=== PATIENT | female | born 1965 | race American Indian/Alaskan Native ===

== ENCOUNTER 2017-07-04 19:04 | Emergency (ER) | payer BC, OTHER ==
[~2017-07-04] VITALS: Ht 157.5 cm; Wt 90.7 kg
[~2017-07-04 19:04] MED LIST: ALBUTEROL2.5 MG/3 M INH; ASPIR 8181 MG PO; AZITHROMYCIN250 MG PO; BACTRIM DS TAB1 EACH PO; CALCIUM + D3 E1 EACH PO; CALCIUM 600 +1 EAC6 PO; CEFPODOXIME PR200 MG PO; CYCLOBENZAPRINE10 MG PO; DULERA 200 MCG/13 GM INH; FLAGYL500 MG PO; HYDROCODON-ACE1 EA14 PO; IBUPROFEN600 MG PO; IPRAT-ALBUT 0.5-3 ML INH; LANTUS SOL100 UNIT/1 SUB-Q; LANTUS100 UNITS/ SUB-Q; LEVAQUIN 7750 MG/150 PO; LEVAQUIN500 MG PO; LISINOPRIL40 MG PO; LORATADINE10 MG PO; MAG-OXIDE400 MG PO; MAGIC MOUTHWASH PO; METFORMIN HCL500 MG PO; METHOCARBAMOL750 MG PO; METOPROLOL SUCC50 MG PO; NOVOLOG FL100 UNIT/1 SUB-Q; PREDNISONE10 MG PO; PREDNISONE20 MG PO; PROVENTIL HFA6.7 GM INH; RANITIDINE HCL150 MG PO; SIMVASTATIN10 MG PO; SINGULAIR10 MG PO; SULFAMETHOXAZO1 EAC1 PO; TAB-A-VITE-MIN1 EACH PO; VITAMIN D2000 UNI1 PO; XANAX0.25 MG PO; ZITHROMAX250 MG PO
[2017-07-04] MEDS ORDERED: LIPITOR10 MG PO (19:16)
[2017-07-04] MEDS ORDERED: METFORMIN HCL1000 M1 PO (19:18)
[2017-07-05] MEDS ORDERED: ONDANSETRON HCL4 MG PO (10:42)
== END 2017-07-04 22:56 | disposition home or self-care (01) ==
LOC: ED 19:04
DX: K52.9 Noninfective gastroenteritis and colitis, unspecified (principal); I10 Essential (primary) hypertension; E11.9 Type 2 diabetes mellitus without complications; E78.00 Pure hypercholesterolemia, unspecified; K21.9 Gastro-esophageal reflux disease without esophagitis; J45.909 Unspecified asthma, uncomplicated; Z87.891 Personal history of nicotine dependence; Z88.2 Allergy status to sulfonamides; Z88.8 Allergy status to other drugs, medicaments and biological substances; Z79.899 Other long term (current) drug therapy; Z79.4 Long term (current) use of insulin; Z79.82 Long term (current) use of aspirin; Z79.84 Long term (current) use of oral hypoglycemic drugs
CPT/HCPCS: 80053; 81001; 83690; 85025; 96361; 96374; 96376; 99284; J2405; J7030

== ENCOUNTER 2017-07-05 10:18 | Emergency (ER) | payer BC, OTHER ==
[~2017-07-05] VITALS: Ht 157.5 cm; Wt 90.7 kg
[~2017-07-05 10:18] MED LIST changes: +LIPITOR10 MG PO; +METFORMIN HCL1000 M1 PO
[2017-07-05] MEDS ORDERED: ONDANSETRON HCL4 MG PO (10:42)
== END 2017-07-05 14:55 | disposition home or self-care (01) ==
LOC: ED 10:18
DX: K52.9 Noninfective gastroenteritis and colitis, unspecified (principal); E11.9 Type 2 diabetes mellitus without complications; I10 Essential (primary) hypertension; E78.00 Pure hypercholesterolemia, unspecified; K21.9 Gastro-esophageal reflux disease without esophagitis; J45.909 Unspecified asthma, uncomplicated; Z87.891 Personal history of nicotine dependence; Z88.2 Allergy status to sulfonamides; Z88.8 Allergy status to other drugs, medicaments and biological substances; Z79.899 Other long term (current) drug therapy; Z79.4 Long term (current) use of insulin; Z79.82 Long term (current) use of aspirin
CPT/HCPCS: 74020; 80053; 81001; 83690; 85025; 87088; 96360; 99283; J7030

== ENCOUNTER → 2017-10-10 | Emergency (ER) | payer BC, OTHER ==
[~2017-10-10] MED LIST changes: +CORRECTOL5 MG PO; +GAVILAX17 GM; +GOLYTELY SOLU4000 ML PO; +ONDANSETRON HCL4 MG PO; +PERFOROMIS20 MCG/2 M; +ROBAXIN-750750 MG
== END ==
LOC: ED 20:55
DX: Z53.21 Procedure and treatment not carried out due to patient leaving prior to being seen by health care provider (principal)

== ENCOUNTER 2017-10-15 16:30 | Emergency (ER) | payer BC, OTHER ==
[~2017-10-15] VITALS: Ht 157.5 cm; Wt 90.7 kg
[~2017-10-15 16:30] MED LIST changes: -CORRECTOL5 MG PO; -GAVILAX17 GM; -GOLYTELY SOLU4000 ML PO; -PERFOROMIS20 MCG/2 M; -ROBAXIN-750750 MG
[2017-10-15] MEDS ORDERED: CORRECTOL5 MG PO (17:24)
[2017-10-15] MEDS ORDERED: PERFOROMIS20 MCG/2 M (17:30)
[2017-10-15] MEDS ORDERED: ROBAXIN-750750 MG (17:32)
[2017-10-15] MEDS ORDERED: GAVILAX17 GM (17:37)
[2017-10-15] MEDS ORDERED: GOLYTELY SOLU4000 ML PO (18:01)
== END 2017-10-15 18:34 | disposition home or self-care (01) ==
LOC: ED 16:30
DX: K59.00 Constipation, unspecified (principal); E11.9 Type 2 diabetes mellitus without complications; E78.00 Pure hypercholesterolemia, unspecified; K21.9 Gastro-esophageal reflux disease without esophagitis; I10 Essential (primary) hypertension; J45.909 Unspecified asthma, uncomplicated; Z87.891 Personal history of nicotine dependence; Z88.1 Allergy status to other antibiotic agents; Z88.8 Allergy status to other drugs, medicaments and biological substances; Z79.82 Long term (current) use of aspirin; Z79.4 Long term (current) use of insulin; Z79.899 Other long term (current) drug therapy
CPT/HCPCS: 74022; 80053; 81001; 85025; 96361; 96374; 96375; 99284; J1885; J2405; J7030

== ENCOUNTER 2018-05-31 12:05 | Emergency (ER) | payer BC, OTHER ==
[~2018-05-31] VITALS: Ht 157.5 cm; Wt 90.7 kg
[~2018-05-31 12:05] MED LIST changes: +CORRECTOL5 MG PO; +GAVILAX17 GM; +GOLYTELY SOLU4000 ML PO; +PERFOROMIS20 MCG/2 M; +ROBAXIN-750750 MG
== END 2018-05-31 12:22 | disposition home or self-care (01) ==
LOC: ED 12:05
DX: R23.8 Other skin changes (principal)

== ENCOUNTER 2019-01-21 21:26 | Emergency (ER) | payer BC, OTHER ==
[~2019-01-21] VITALS: Ht 157.5 cm; Wt 90.7 kg
--- OUTSIDE RECORDS SUMMARY | ~2019-01-21 | XMS | Encounter Summary ---
Demographics + + + | Address | [address] | | | [place] [address] | + + + | Home Phone | | + + + | Preferred Language | Unknown | + + + | Marital Status | Unknown | + + + | Methodist Affiliation | Unknown | + + + | Race | Unknown | + + + | Ethnic Group | Unknown | + + + Author + + + | Author | [facility] | + + + | Organization | [facility] | + + + | Address | Unknown | + + + | Phone | Unavailable | + + + Care Team Providers + +------+ + | Care Telephoner Name | Role | Phone | + +------+ + | Kayla Núñez PA-C | PCP | | + +------+ + Reason for Visit + + + | Reason | Comments | + + + | Question | paperwork | + + + Encounter Details +--------+ + + + + | Date | Type | Department | Care Team | Description | +--------+ + + + + | 12/25/ | Telephone | [facility] | Dimitrios Paniagua MD [address] | Question (paperwork) | | 2019 | | [facility] | [address] [place] | | | | | [address] | [place] [address] | | | | | [place] | [phone] | | | | | [address] | | | | | | [phone] | | | +--------+ + + + [...] on file | | + + + as of this encounter Plan of Treatment +--------+---------+ + + + | Date | Type | Specialty | Care Team | Description | +--------+---------+ + + + | 01/30/ | Office | Neurology | Dimitrios Paniagua MD [address] | | | 2019 | Visit | | [place] | | | | | | [place] [address] | | | | | | [phone] | | | | | | | | +--------+---------+ + + + as of this encounter Visit Diagnoses Not on filein this encounter"
--- OUTSIDE RECORDS SUMMARY | ~2019-01-21 | XMS | Encounter Summary ---
Demographics + + + | Address | [address] | | | [place] [address] | + + + | Home Phone | | + + + | Preferred Language | Unknown | + + + | Marital Status | Unknown | + + + | Mormonism Affiliation | Unknown | + + + | Race | Unknown | + + + | Ethnic Group | Unknown | + + + Author + + + | Author | [facility] | + + + | Organization | [facility] | + + + | Address | Unknown | + + + | Phone | Unavailable | + + + Care Team Providers + +------+ + | Care Amf Mechanic Name | Role | Phone | + [...] | | | [address] | [place] [address] | | | | | [place] | [phone] | | | | | [address] | | | | | | [phone] | | | +--------+ + + + [...] | | | | | | [place] [address] | | | | | | [phone] | | | | | | | | +--------+---------+ + + + as of this encounter Visit Diagnoses Not on filein this encounter"
--- OUTSIDE RECORDS SUMMARY | ~2019-01-21 | XMS | Clinical Summary ---
Demographics + + + | Address | [address] | | | [place] [address] | + + + | Home Phone | | + + + | Preferred Language | Unknown | + + + | Marital Status | Unknown | + + + | Taoist Affiliation | Unknown | + + + | Race | Unknown | + + + | Ethnic Group | Unknown | + + + Author + + + | Author | [email or web address] | + + + | Organization | [facility] | + + + | Address | Unknown | + + + | Phone | Unavailable | + + + Care Team Providers + +------+ + | Care Regeneration Operator Name | Role | Phone | + +------+ + | Kayla Núñez PA-C | PP | | + +------+ + Allergies Not on File Current Medications Not on file Active Problems Not on file Encounters +--------+ + + + + | Date | Type | Specialty | Care Team | Description | +--------+ + + + + | 12/25/ | Telephone | | Dimitrios Paniagua MD | Question (paperwork) | | 2018 | | | | | +--------+ + + + + from Last 3 Months Social History + +-------+ +--------+------+ | Tobacco [...] on file | | + + + Plan of Treatment +--------+---------+ + + + | Date | Type | Specialty | Care Team | Description | +--------+---------+ + + + | 01/30/ | Office | | Dimitrios Paniagua MD [address] | | | 2019 | Visit | | [place], | | | | | | [place] [address] | | | | | | [phone] | | | | | | | | +--------+---------+ + + + + + + + + | Health [...] Vaccine: Influenza | | | | | (Season Ended) | 9 | | | + + [...] +------+-------+ + | PREMERA | PREMER | [id number] | | | [address] [address] | | | A BLUE | | | | [place] | | | [place] | | | | [phone] | | | FED | | | [...] | Self | [birth year] Home: | [address] | | | al/Fam | | 1965 | [phone] | [place] [address] | | | albaro | | | [phone] | | + +--------+ +--------+ + +"
--- OUTSIDE RECORDS SUMMARY | ~2019-01-21 | XMS | Clinical Summary ---
Demographics + + + | Address | [address] | | | [place] [address] | + + + | Home Phone | | + + + | Preferred Language | Unknown | + + + | Marital Status | | + + + | Judaism Affiliation | 1041 | + + + | Race | Unknown | + + + | Ethnic Group | Unknown | + + + Author + + + | Author | [facility] | | | [facility] | + + + | Organization | [facility] | | | and [facility] | + + + | Address | Unknown | + + + | Phone | Unavailable | + + + Support + + +---------+ + | Name | Relationship | Address | Phone | + + +---------+ + | Shiela Chavez | KARMEN | [place] | | | | | NA, | | + + +---------+ + | Manny Martinez | KARMEN | N | | | | | N, | | + + +---------+ + Care Team Providers + +------+ + | Care Cracking And Fanning Machine Operator Name | Role | Phone | + +------+ + | Kayla Núñez PA-C | PP | | + +------+ + Allergies + + + + + + | Active Allergy | Reactions | Severity | Noted | Comments | | | | | Date | | + + + + + + | Amlodipine | Other (See Comments) | | 11/11/19 | Reaction: Unknown | | | | | 18 | | + + + + + + | Cephalexin | Other (See Comments) | | 11/11/19 | Reaction: Unknown | | | | | 18 | | + + + + + + | Cyclobenzaprine | Other (See Comments) | | 11/11/19 | Reaction: Unknown | | | | | 18 | | + + + + + + | Ferrous Gluconate | Other (See Comments) | | 11/11/19 | Reaction: Unknown | | | | | 18 | | + + + + + + | Hydrochlorothiazide | Other (See Comments) | | 11/11/19 | Reaction: Unknown | | | | | 18 | | + + + + + + | Omeprazole | | | 02/18/20 | | | | | | 12 | | + + + + + + | Sulfamethoxazole-Tri | Other (See Comments) | | 05/04/20 | Reaction: Uknown | | [...] | 09/1 | | Activ | | succinate | Daily. | | | 4/20 | | e | | (TOPROL-XL) 50 mg 24 | | | | 12 | | | | hr tablet | | | | | | | + + + +---------+------+------+-------+ | ranitidine | Take 150 mg by mouth | | 0 | 09/1 | | Activ | | (ZANTAC) 150 mg | 2 times daily. | | | 01/17 | | e | | tablet | | | | 12 | | | + + + +---------+------+------+-------+ | magnesium oxide | Take 400 mg by mouth | | 0 | | | Activ | | (MAG-OX) 400 mg | Daily. [...] | | + + + +---------+------+------+-------+ | clindamycin | Take 300 mg by mouth | | 0 | | | Activ | | (CLEOCIN) 300 MG | 3 times daily. | | | | | [...] | | + + + +---------+------+------+-------+ | calcium-vitamin D | Take 1 tablet by | | 0 | | | Activ | | (OSCAL) 500 mg-200 | mouth 2 times daily. | | | | | e | | units per tablet | | [...] | | + + + +---------+------+------+-------+ | glipiZIDE | Take 10 mg by mouth | | 0 | | | Activ | | (GLUCOTROL) 10 MG | every morning | | | | | e | | tablet | (before breakfast). | | | | | | + + + +---------+------+------+-------+ Active Problems + + + | Problem | Noted Date | + + + | Gastroesophageal reflux disease [...] | 7 | + + + + Family History + +------+ + + | [...] | | + + +---------+ + | No [...] + | Blood Pressure | 130/74 | 12/09/20171516 PDT | + + + + | Pulse | 78 | 12/09/20171516 PDT | + + + + | Temperature | 36.8 C (98.3 F) | 12/09/20171516 PDT | + + + + | Respiratory Rate | 12 | 12/09/20171516 PDT | + + + + | Oxygen Saturation | 98% | 12/09/20171516 PDT | + + + + | Inhaled Oxygen | - | - | | Concentration | | | + + + + | Weight | 98.1 kg (216 lb 4.3 | 12/09/20171516 PDT | | | oz) | | + + + + | Height | 157.5 cm (5' 2") | 12/09/20171516 PDT | + + + + | Body Mass Index | 39.56 | 12/09/20171516 PDT | + + + + Plan [...] | | | | Pneumococcal 19-64 | 4 | | | | (PPSV23 only) Medium | | | | | Risk (1 of 1 - | | | | | PPSV23) | | | | + + + + + | Cervical Cancer | | | | | Screening (Pap) | 5 | | | + + + + + | Breast Cancer | | | | | Screening (Ages | 5 | | | | 50-74) | | | | + + + [...] + + | Colorectal Cancer | | 09/30/2014 | | | Screening | 5 | | | | (Colonoscopy) | | | | + + + + + Results Not on filefrom Last 3 Months Insurance + +--------+ +--------+-------+---------+--------+ | Payer | Benefi | Subscriber | Effect | Phone | Address | Type | | | t Plan | ID | joselyn | | | | | | / | | Dates | | | | | | Group | | | | | | + +--------+ +--------+-------+---------+--------+ | BCBS | BCBS | [id number] | 01/30/20 | | | PPO | | | FEDER[place] | | 16-Pre | | | | | | L FEP | | sent | | | | + +--------+ +--------+-------+---------+--------+ | BCBS | BCBS | [id number] | 01/30/20 | | | PPO | | | FEDERA | | 16-Pre | | | | | | L FEP | | sent | | | | + +--------+ +--------+-------+---------+--------+ | [facility] | IHS | [id number] | 10/31/19 | | | Indrudyn | | SERVICE | YELLOW | | [...] Person | Self | [birth year] | [phone] | | | al/Fam | | 1965 | [phone] | [place] [address] | | | [place]o | | | 0 (Home) | | | | | | | [phone] | | | | | | | 0 (Work) | | + +--------+ +--------+ + + | Inocencia Chavez | Person | Self | [birth year] | [phone] | | | al/Po | | 1965 | [phone] | [place] [address] | | | [place] | | | 0 (Home) | | + +--------+ +--------+ + + Advance Directives Patient has advance care planning documents, and code status on file. For more information, please contact:[facility] and [place] [address] + + + + + | Code Status | Date | Date | Comments | | | Activated | Inactivated | | + + + + + | Full Code | 05/04/2017 | 05/05/2017 | | | | 21:03 | 17:04 | | + + + + +
--- OUTSIDE RECORDS SUMMARY | ~2019-01-21 | XMS | Clinical Summary ---
Demographics + + + | Address | [address] | | | [place] [address] | + + + | Home Phone [...] Team Providers + +------+ + | Care Rug Cleaning Supervisor Name | Role | Phone | [...] +--------+ +--------+-------+---------+--------+ | BCBS | BCBS | [id number] | 01/30/20 | | | PPO | | | [place] | | 16-Pre | | | | | | L FEP | | sent | | | | + +--------+ +--------+-------+---------+--------+ | BCBS | BCBS | [id number] | 01/30/20 | | | PPO | | | FEDERA | | 16-Pre | | | | | | L FEP | | sent | | | | + +--------+ +--------+-------+---------+--------+ | [facility] | IHS | [id number] | 10/31/19 | | | Indrudyn | [...] Person | Self | [birth year] | [id number] | | | al/Fam | | 1965 | [phone] | [place] [address] | | | [place]baro | | | 0 (Home) | | | | | | | [phone] | | | | | | | 0 (Work) | | + +--------+ +--------+ + + | Inocencia Chavez | Person | Self | [birth year] | | [id number] | | | al/Po | | 1965 | [phone] | [place] [address] | | | [place]o | | | 0 (Home) | | + +--------+ +--------+ + + Advance Directives Patient has advance care planning documents, and code status on file. For more information, please contact:[facility] and [place] [address] + + + + + | Code Status | Date | Date | Comments | | | Activated | Inactivated | | + + + + + | Full Code | 05/04/2017 | 05/05/2017 | | | | 21:03 | 17:04 | | + + + + +
--- OUTSIDE RECORDS SUMMARY | ~2019-01-21 | XMS | Clinical Summary ---
Demographics + + + | Address | [address] | | | [place] [address] | + + + | Home Phone | | + + + | Preferred Language | Unknown | + + + | Marital Status | Unknown | + + + | Evangelical Affiliation | Unknown | + + + | Race | Unknown | + + + | Ethnic Group | Unknown | + + + Author + + + | Author | [facility] | + + + | Organization | [facility] | + + + | Address | Unknown | + + + | Phone | Unavailable | + + + Care Team Providers + +------+ + | Care Cementer Name | Role | Phone | + [...] | | | | | | [place] [address] | | | | | | [phone] | | | | | | | [...] +------+-------+ + | PREMERA | PREMER | [id number] | | | [address] [address] | | | A BLUE | | | | [place] | | | [place] | | | | [address] | | | FED | | | [...] | Self | [birth year] | Home: | [address] | | | al/Fam | | 1965 | [phone] | [place] [address] | | | [place]o | | | [address] | | + +--------+ +--------+ + +"
[2019-01-21] MEDS ORDERED: PROTONIX40 MG PO (21:39)
[2019-01-21] MEDS ORDERED: ONGLYZA5 MG PO (21:40)
== END 2019-01-21 22:50 | disposition left against medical advice (07) ==
LOC: ED 21:26
DX: Z53.21 Procedure and treatment not carried out due to patient leaving prior to being seen by health care provider (principal)
CPT/HCPCS: 80053; 81001; 85025; G0480

== ENCOUNTER 2019-09-09 13:42 | Inpatient (IN) | payer BC, OTHER ==
[~2019-09-09] VITALS: Ht 157.5 cm; Wt 97.5 kg
--- OUTSIDE RECORDS SUMMARY | ~2019-09-09 | XMS | Encounter Summary ---
Demographics + + + | Address | [address] | | | [place] [address] | + + + | Home Phone | | + + + | Preferred Language | Unknown | + + + | Marital Status | | + + + | Baptism Affiliation | [id number] | + + + | Race | Unknown | + + + | Ethnic Group | Unknown | + + + Author + + + | Author | [facility] | | | and [place] | + + + | Organization | [facility] | | | and [place] | + + + | Address | Unknown | + + + | Phone | Unavailable | + + + Support + + +---------+ + | Name | Relationship | Address | Phone | + + +---------+ + | Shiela Chavez | KARMEN | NA | | | | | NA, | | + + +---------+ + | Manny Martinez | ECON | N | | | | | N, | | + + +---------+ + Care Team Providers + +------+ + | [employer] Counter Assistant Name | Role | Phone | + +------+ + | Kayla Núñez PA-C | PCP | | + +------+ + Reason for Visit + + + | Reason | Comments | + + + | New Patient | | + + + | Abdominal Pain | | + + + | Constipation | | + + + | Diarrhea | | + + + | Bloated | | + + + Evaluate & Treat (Routine) +--------+--------+ + + + + | Status | Reason | Specialty | Diagnoses / | Referred By | Referred To | | | | | Procedures | Contact | Contact | +--------+--------+ + + + + | Closed | | Gastroenterol | Diagnoses | [place], [facility] | | | | ogy | Generalized | Kayla Enciso, | Gastroenterol | | | | | abdominal | [place]-C [id number] | ogy [address] | | | | | pain | | [address] | | | | | Bloating | [address] | [address] [place] | | | | | [address] | [address] | [place], [place] | | | | | constipation | [place], | [address] | | | | | and | [place] [address] | Phone: | | | | | diarrhea | Phone: | [phone] | | | | | Procedures | [phone] | Fax: | | | | | Office Visit | Fax: | [phone] | | | | | | [phone] | | +--------+--------+ + + + + Encounter Details +--------+---------+ + + + | Date | Type | Department | Care Team | Description | +--------+---------+ + + + | 11/12/ | Office | [facility] | Cornelio Edmond | DIABETES MELLITUS, | | 2017 | Visit | GASTROENTEROLOGY | MD [place] [address] | WITH PERIPHERAL | | | | [address] | [address] [place] | NEUROPATHY (Primary | | | | [address] [place], [place] | [place] [address] | Dx); Chronic | | | | [address] | [phone] | idiopathic | | | | [phone] | | constipation; | | | | | | Gastroesophageal | | | | | | reflux disease | | | | | | without esophagitis; | | | | | | Class 2 obesity due | | | | | | to excess calories | | | | | | with body mass index | | | | | | (BMI) of 39.0 to | | | | | | 39.9 in adult, | | | | | | unspecified whether | | | | | | serious comorbidity | | | | | | present | +--------+---------+ + + + Social History + +-------+ +--------+------+ | Tobacco Use | Types | Packs/Day | Years | Date | | | | | Used | | + +-------+ +--------+------+ | Never Smoker | | | | | + +-------+ +--------+------+ + +---+---+---+ | Smokeless Tobacco: | | | | | Never Used | | | | + +---+---+---+ + + +---------+ + | Alcohol Use | Drinks/Week | oz/Week | Comments | + + +---------+ + | No | | | | + + +---------+ + + + + | Sex Assigned at | Date Recorded | | | | + + + | Not on file | | + + + + + + + | Job Start Date | Occupation | Industry | + + + + | Not on file | Not on file | Not on file | + + + + + + + + | Travel History | Travel Start | Travel End | + + + + + + | No recent travel history available. | + + documented as of this encounter Last Filed Vital Signs + + + + + | Vital Sign | Reading | Time Taken | Comments | + + + + + | Blood Pressure | 142/70 | 11/12/2017 8:04 AM | | | | | PST | | + + + + + | Pulse | 64 | 11/12/2017 8:04 AM | | | | | PST | | + + + + + | Temperature | - | - | | + + + + + | Respiratory Rate | 16 | 11/12/2017 8:04 AM | | | | | PST | | + + + + + | Oxygen Saturation | - | - | | + + + + + | Inhaled Oxygen | - | - | | | Concentration | | | | + + + + + | Weight | 97.2 kg (214 lb 4.6 | 11/12/2017 8:04 AM | | | | oz) | PST | | + + + + + | Height | 157.5 cm (5' 2") | 11/12/2017 8:04 AM | | | | | PST | | + + + + + | Body Mass Index | 39.19 | 11/12/2017 8:04 AM | | | | | PST | | + + + + + documented in this encounter Functional Status + + + + | Functional Status | Response | Date of Assessment | + + + + | Are you deaf or do you have serious | Yes | 05/04/2017 | | difficulty hearing? | | | + + + + | Are you blind or do you have serious | No | 05/04/2017 | | difficulty seeing, even when wearing | | | | glasses? | | | + + + + | Do you have serious difficulty walking or | No | 05/04/2017 | | climbing stairs? (5 years old or older) | | | + + + + | Do you have difficulty dressing or bathing? | No | 05/04/2017 | | (5 years old or older) | | | + + + + | Because of a physical, mental, or emotional | No | 05/04/2017 | | condition, do you have difficulty doing | | | | errands alone such as visiting a doctor's | | | | office or shopping? [15 years old or | | | | older)] | | | + + + + + + + + | Cognitive Status | Response | Date of Assessment | + + + + | Because of a physical, mental, or emotional | No | 05/04/2017 | | condition, do you have serious difficulty | | | | concentrating, remembering, or making | | | | decisions? (5 years old or older) | | | + + + + documented as of this encounter Patient Instructions Patient Instructions Cornelio Edmond MD - 11/12/2017 8:45 AM PST1. Start prilosec (om eprazole) 20mg twice a day (before breakfast and dinner), and stop ranitidine (zantac). The Prilosec doesn't kick in for 1 week, so you overlap with the ranitidine for the first week. 2. You could potentially reduce the prilosec dose to 20mg once a day before breakfast after one month if your heartburn is well controlled. 3. Increase your miralax to two scoops in the morning 4. Make sure your thyroid has been checked (TSH) 5. Follow up with me in 1 month to check on your symptoms. 6. Try holding the metformin for 2 weeks to see how your symptoms do. Please touch base wit h your primary to make sure they are ok with this. Treating Constipation Constipation is a common and often uncomfortable problem. Constipation means you have bowel movementsfewer than 3 times per week,or strain to pass hard, dry stool. It can last a s hort time. Or it can be a problem that never seems to go away. The good news is that it can often be treated and controlled. Eat more fiber One of the best ways to help treat constipation is to increase your fiber intake. You can d o this either through diet or by using fiber supplements. Fiber (in whole grains, fruits, an d vegetables) adds bulk and absorbs water to soften the stool. This helps the stool pass thr ough the colon more easily. When you increase your fiber intake, do it slowly to avoid side effects such as bloating. Also increase the amount of water that you drink. Eating more of t he following foods can add fiber to your diet. High-fiber cereals Whole grains, bran, and brown rice Vegetables such as carrots, broccoli, and greens Fresh fruits (especially apples, pears, and dried fruits like raisins and apricots) Nuts and legumes (especially beans such as lentils, kidney beans, and ya beans) Get physically active Exercise helps improve the working of your colon which helps ease constipation. Try to get some physicalactivity every day. If you haven t been active for a while, talk to [facility] providerbefore starting again. Laxatives Your healthcare provider may suggest an [id number]-obictfr product to help ease your constipa tion. He or she may suggest the use of bulk-forming agents or laxatives. The use of laxative s, if used as directed, is common and safe. Follow directions carefully when using them. See your healthcare provider for new-onset constipation, or long-term constipation,to rule ou t other causes such as medicines or thyroid disease. Date Last Reviewed: 03/30/201619999276-1519 [employer] [place] [address]. All righ ts reserved. This information is not intended as a substitute for professional medical care. Always follow your healthcare professional's instructions. documented in this encounter Progress Notes Cornelio Edmond MD - 11/12/2017 8:00 AM PST Outpatient Gastroenterology Consult Note Date of Office Visit: 11/12/17 Referring Provider: Kayla Núñez PA-C [id number] [place] [address] Providing Physician: Cornelio Edmond MD. Chief Complaint: New Patient; Abdominal Pain; Constipation; Diarrhea; and Bloated History of Present Illness Inocencia Chavez is a 52 y.o. female with type II diabetes, hyperlipidemia, hypertension, a nd asthma, who is referred for evaluation of a change in bowel habits and abdominal pain. S he also has a history of C. diff infection in 2014. Since that infection she has had altern ating diarrhea and constipation. She had a CT in 09/17/2015 which revealed only diverticulosis. She was seen by her provider Kayla Mina on October 30 of the above symptoms, who orde red a C. diff, stool culture, Giardia, but the patient never submitted this. Her main complaint today is constipation. She says that in September this developed. She had a day when she got "stuck on the toilet at work". She went to the ER but was able to have a BM at the ER bathroom and went home. She had an X-ray the next day, which showed a large sto ol burden. She was given 2L of Golytely which "flushed me out". She says that she occasionally cannot sense that she has stool in her rectum. This occurs w hen the stool is both formed and liquid. She will sit on the toilet to urinate, and will als o have a BM to her surprise. She has had 3 c-sections, but has never been told that she has pelvic organ prolapse. Her weight has been increasing. She had E.coli in 2009. She says it took her 1 year to recover from this. She struggled wit h incontinence after that. She has a new years resolution to exercise more and loose weight, but her constipation and abdominal bloating are prohibitive. Lately she endorses a loss of appetite due to her bloating. She attributes the bloating to her constipation. Presently she is taking 1 cap full of miralax per day. She is going 2-3 days between bowel movements. Her stools are soft presently. She has a constant ache in her belly like she is going to have diarrhea, but she doesn't foss ve diarrhea. She has been on metformin since 2009. No FH of CRC, and she denies any rectal bleeding She also complains of heartburn, for which she takes ranitidine 150mg BID. She has daily he artburn symptoms while on this medication. Endoscopic History She had a colonoscopy on 04/10/2010 for evaluation of right-sided colitis after being hospit alized with an abnormal CT showing thickening of the right colon wall. A colonoscopy was pe rformed by [facility]. The colon appeared normal other than left-sided diverticulosis. Review of Systems ROS A 12 point review of systems was conducted with the patient. Pertinent positives and negati ves listed per HPI Problem List Patient Active Problem List Diagnosis LUMBAR RADICULOPATHY SPINAL STENOSIS, LUMBAR OBESITY HERNIATED LUMBAR DISC DIABETES MELLITUS, WITH PERIPHERAL NEUROPATHY SCIATICA, LEFT DEGENERATIVE DISC DISEASE, LUMBAR SPINE THORACIC/LUMBOSACRAL NEURITIS/RADICULITIS UNSPEC Gastroesophageal reflux disease without esophagitis Chronic idiopathic constipation Past Medical History Past Medical History: Diagnosis Date Abdominal pain Asthma Clostridium difficile infection 2014 Diabetes mellitus (HCC) Diverticulosis Hyperlipidemia Hypertension Past Surgical History Past Surgical History: Procedure Laterality Date SECTION x3 COLONOSCOPY 2015 GALLBLADDER SURGERY Family History No family history on file. Social History Social History Social History Marital status: Spouse name: N/A Number of children: N/A Years of education: N/A Social History Main Topics Smoking status: Never Smoker Smokeless tobacco: Never Used Alcohol use No Drug use: No Sexual activity: Yes Partners: Male control/ protection: Post-menopausal Other Topics Concern None Social History Narrative None Allergies Allergies Allergen Reactions Amlodipine Other (See Comments) Reaction: Unknown Cephalexin Other (See Comments) Reaction: Unknown Cyclobenzaprine Other (See Comments) Reaction: Unknown Ferrous Gluconate Other (See Comments) Reaction: Unknown Hydrochlorothiazide Other (See Comments) Reaction: Unknown Omeprazole Not Noted Sulfamethoxazole-Trimethoprim Other (See Comments) Reaction: Uknown Intolerance No active intolerances/contraindications Medications Current Outpatient Prescriptions on File Prior to Visit Medication Sig Dispense Refill Albuterol Sulfate (PROAIR HFA IN) AERS-inhale 2 puffs by mouth four times a day as need ed ALPRAZolam (XANAX) 0.25 mg tablet Take 0.25 mg by mouth as needed for Anxiety. aspirin (ASPIRIN EC LO-DOSE) 81 MG EC tablet Take 81 mg by mouth Daily. atorvaSTATin (LIPITOR) 10 mg tablet Take 10 mg by mouth nightly. calcium-vitamin D (OSCAL) 500 mg-200 units per tablet Take 1 tablet by mouth 2 times da albaro. cholecalciferol (VITAMIN D-3) 2000 units TABS Take 2,000 Units by mouth Daily. clindamycin (CLEOCIN) 300 MG capsule Take 300 mg by mouth 3 times daily. ergocalciferol (VITAMIN D-2) 50,000 units capsule Take 2,000 Units by mouth Daily. Insulin Aspart (NOVOLOG PENFILL SC) SOLN-inject 10 units under skin three times a day b efore meals Insulin Glargine (LANTUS SOLOSTAR SC) SOLN-1000/ml insulin pen inject 40 units under sk in at bedtime lisinopril (PRINIVIL,ZESTRIL) 40 MG tablet Take 40 mg by mouth Daily. (Patient taking d ifferently: Take 20 mg by mouth Daily.) loratadine (CLARITIN) 10 mg tablet Take 10 mg by mouth Daily. magnesium oxide (MAG-OX) 400 mg tablet Take 400 mg by mouth Daily. metFORMIN (GLUCOPHAGE) 1000 MG tablet Take 1,000 mg by mouth 2 times daily (with breakf ast & dinner). methocarbamol (ROBAXIN) 750 mg tablet Take 750 mg by mouth 3 times daily as needed for Muscle spasms. metoprolol succinate (TOPROL-XL) 50 mg 24 hr tablet Take 50 mg by mouth Daily. mometasone-formoterol (DULERA) 200-5 mcg/puff inhaler Inhale 2 puffs into the lungs Twi ce Daily. montelukast (SINGULAIR) 10 mg tablet Take 10 mg by mouth nightly. ondansetron (ZOFRAN ODT) 4 mg disintegrating tablet Take 4 mg by mouth every 8 hours as needed for Nausea. ranitidine (ZANTAC) 150 mg tablet Take 150 mg by mouth 2 times daily. No current facility-administered medications on file prior to visit. Physical Exam Vitals:BP 142/70 | Pulse 64 | Resp 16 | Ht 1.575 m (5' 2") | Wt 97.2 kg (214 lb 4.6 oz) | BMI 39.19 kg/m General: This is a well-developed,well-nurished female in no apparent distress, alert and o riented x 3. Head: Reveals normocephalic, atraumatic Eyes: Sclera anicteric, normal conjunctiva Mouth: Oropharynx is clear without obstruction. No oral lesion. Lungs: Clear to auscultation without rales or wheezes. Cardiac: Reveals regular rate and rhythm with normal S1 and S2 and no murmurs, rubs or gall ops. Abdomen: Soft and nontender without masses or organmegaly. No guarding or rebound pain. No rmoactive bowel sounds. Extremities: Without cyanosis, clubbing or edema. Neuro: Awake, alert, oriented x3. Skin: Warm and dry, no erythematous rash. Labs Lab Results Component Value Date WBC 6.7 05/05/2017 HGB 10.7 (L) 05/05/2017 HCT 32.3 (L) 05/05/2017 MCV 88.0 05/05/2017 PLT 274 05/05/2017 Chemistry Component Value Date/Time NA 139 05/05/2017 0625 K 5.3 05/05/2017 0625 CL 112 (H) 05/05/2017 0625 CO2 20 (L) 05/05/2017 0625 GLU 188 (A) 05/05/2017 0710 BUN 18 05/05/2017 0625 ANIONGAP 17 10/29/2017 Component Value Date/Time CALCIUM 8.5 05/05/2017 0625 ALKPHOS 94 05/04/2017 1744 AST 23 05/04/2017 1744 ALT 28 05/04/2017 1744 TOTALPROTEIN 7.4 05/04/2017 1744 ALBUMIN 3.7 05/04/2017 1744 BILITOT 0.3 05/04/2017 1744 OSH labs from October 29, 2017 showed a white blood cell count 9.5, hemoglobin of 11.7, viraj telet count of 361 Creatinine 1.15, sodium 142, potassium 5.0, albumin 3.7, total bilirubin 0.2, alk phos 107, AST 23, ALT 22 Imaging KUB from 10/14/17 was normal Assessment and Plan This is a 52-year-old woman who was referred for evaluation abdominal pain, bloating, and c onstipation. She has a history of C. diff, and E. coli colitis. She is also diabetic and i s on insulin and metformin. Her other complaint is worsening GERD. She previously had a normal colonoscopy in 2009 done in the context of an abnormal CT scan showing colitis. For her bloating and constipation I recommended that she increase her MiraLAX intake. I re commended that she use 2 capfuls of MiraLAX in the morning. I also recommended that she fol low-up with her primary care provider to make sure that her TSH has been checked recently. Metformin can commonly cause GI distress and bloating I recommended that she consider holdin g it for 2 weeks to see how her symptoms do. I instructed her to run this by her primary ca re provider first as she is managing her diabetes. For her GERD she's having symptoms secondary to her GERD while on ranitidine. I recommende d that she start Prilosec 20 mg twice a day and then stop the ranitidine. If she has a favo rable response to Prilosec we could potentially decrease it to the minimal effective dose of 20 mg once a day in the future. I instructed her to follow up in 4 weeks. If she does not have a good response with the Mi raLAX and has ongoing symptoms of bloating and constipation, we may ultimately need to do a colonoscopy. ICD-10-CM ICD-9-CM 1. DIABETES MELLITUS, WITH PERIPHERAL NEUROPATHY E11.49 250.60 2. Chronic idiopathic constipation K59.04 564.00 3. Gastroesophageal reflux disease without esophagitis K21.9 530.81 4. Class 2 obesity due to excess calories with body mass index (BMI) of 39.0 to 39.9 in nafisa lt, unspecified whether serious comorbidity present E66.09 Z68.39 Follow up: Return in about 4 weeks (around 12/10/2017). CC: STEPH CastroC [id number] [place] [address] LEAH [id number] [place] [id number] Portions of this chart may have been created with [employer] voice recognition software. Occasi onal wrong-word or sound-alike substitutions may have occurred due to the inherent parkinson itations of voice recognition software. Please read the chart carefully and recognize, using context, where these substitutions have occurred documented in thi s encounter Plan of Treatment Not on filedocumented as of this encounter Visit Diagnoses + + | Diagnosis | + + | DIABETES MELLITUS, WITH PERIPHERAL NEUROPATHY - Primary Type II or unspecified type | | diabetes mellitus with neurological manifestations, not stated as uncontrolled | + + | Chronic idiopathic constipation Unspecified constipation | + + | Gastroesophageal reflux disease without esophagitis Esophageal reflux | + + | Class 2 obesity due to excess calories with body mass index (BMI) of 39.0 to 39.9 in | | adult, unspecified whether serious comorbidity present | + + documented in this encounter
--- OUTSIDE RECORDS SUMMARY | ~2019-09-09 | XMS | Encounter Summary ---
Demographics + + + | Address | [address] | | | [place] [address] | + + + | Home Phone | | + + + | Preferred Language | Unknown | + + + | Marital Status | | + + + | Episcopal Affiliation | 1041 | + + + | Race | Unknown | + + + | Ethnic Group | Unknown | + + + Author + + + | Author | [facility] | | | and [place] | + + + | Organization | [facility] | | | and [...] Team Providers + +------+ + | Care [employer] Name | Role | Phone | + +------+ + | Kayla Núñez PA-C | PCP | | + +------+ + Reason for Referral Diagnostic/Screening (Routine) +--------+--------+ + + + + | Status | Reason | Specialty | Diagnoses / | Referred By | Referred To | | | | | Procedures | Contact | Contact | +--------+--------+ + + + + | Closed | | Radiology | Diagnoses | [place], | [facility] | | | | | Type II or | Cornelio | Medicine | | | | | unspecified | MD Corbin | [address] | | | | | type | [address] | [place], | | | | | diabetes | [address] [place] | [place] | | | | | mellitus | [place], [place] | [address] | | | | | with | [address] | Phone: | | | | | neurological | Phone: | [phone] | | | | | | [phone] | Fax: | | | | | manifestatio | Fax: | [phone] | | | | | ns, not | [phone] | | | | | | stated as | | | | | | | uncontrolled | | | | | | | ([phone]) | | | | | | | (HCC) Early | | | | | | | satiety | | | | | | | Non-intracta | | | | | | | ble cyclical | | | | | | | vomiting | | | | | | | with nausea | | | | | | | Procedures | | | | | | | NM Gastric | | | | | | | Emptying | | | | | | | CHG GASTRIC | | | | | | | EMPTYING | | | | | | | IMAGING | | | | | | | STUDY | | | +--------+--------+ + + + + Reason for Visit + + + | Reason | Comments | + + + | Follow-up | | + + + | Abdominal Pain | | + + + | Constipation | | + + + Evaluate & Treat (Routine) +--------+--------+ + + + + | Status | Reason | Specialty | Diagnoses / | Referred By | Referred To | | | | | Procedures | Contact | Contact | +--------+--------+ + + + + | Closed | | Gastroenterol | Diagnoses | [place], | Jim[place], | | | | ogy | Abdominal | Kayla Enciso, | Robbin Prieto MD | | | | | pain | PA-C [address] | [address], | | | | | Bloating | | [address] | | | | | Procedures | [address] | [address], | | | | | OFFICE VISIT | WAY | [place] [address] | | | | | | [place] | Phone: | | | | | | [place] [address] | [phone] | | | | | | Phone: | Fax: | | | | | | [phone] | [phone] | | | | | | Fax: | | | | | | | [phone] | | +--------+--------+ + + + + Encounter Details +--------+---------+ + + + | Date | Type | Department | Care Team | Description | +--------+---------+ + + + | 06/03/ | Office | [facility] | Cornelio Edmond | Irritable bowel | | 2019 | Visit | GASTROENTEROLOGY | MD Cor[address] | syndrome with | | | | [address] [place] | [address] [place] | constipation | | | | [address] [place], [place] | [facility] [place] [address] | (Primary Dx); | | | | [address] | [phone] | DIABETES MELLITUS, | | | | [phone] | | WITH PERIPHERAL | | | | | | NEUROPATHY; Early | | | | | | satiety; | | | | | | Non-intractable | | | | | | cyclical vomiting | | | | | | with nausea; | | | | | | Sedative dependence | | | | | | ([facility]) | +--------+---------+ + + + Social History + +-------+ +--------+------+ | Tobacco Use | Types | Packs/Day | Years | Date | | | | | Used | | + +-------+ +--------+------+ | Former Smoker | | | | | + [...] + + + | Blood Pressure | 130/82 | 06/03/2019 3:40 PM | | | | | PDT | | + + + + + | Pulse | 80 | 06/03/2019 3:40 PM | | | | | PDT | | + + + + + | Temperature | 36.8 C (98.3 F) | 06/03/2019 3:40 PM | | | | | PDT | | + + + + + | Respiratory Rate | 16 | 06/03/2019 3:40 PM | | | | | PDT | | + + + + + | Oxygen Saturation | 96% | 06/03/2019 3:40 PM | | | | | PDT | | + + + + + | Inhaled Oxygen | - | - | | | Concentration | | | | + + + + + | Weight | 98 kg (216 lb 0.8 | 06/03/2019 3:40 PM | | | | oz) | PDT | | + + + + + | Height | 157.5 cm (5' 2") | 06/03/2019 3:40 PM | | | | | PDT | | + + + + + | Body Mass Index | 39.52 | 06/03/2019 3:40 PM | | | | | PDT | | + + + + + [...] Instructions Patient Instructions Cornelio Edmond MD - 06/03/2019 3:30 PM PDT1. Start linzess, if you get diarrhea, call and we can reduce the dose 2. Arrange EGD and colonoscopy 3. Gastric emptying scan to check for gastroparesis documented in this encounter Progress Notes Thelma Cancino RN - 06/03/2019 3:30 PM PDTScheduled pt for egd/colon with prop nader tion (DM II; Benzo) on 07/07/[address] Edmond; standard prep reviewed: low fib er diet Sat/Sun before procedure; Mon follow a clear liquid day before with bowel prep at 4p m/8pm or 4pm depending on prep until complete; Medications (half dose DM night before and ho ld day of; hold PPI day of procedure), surg/med hx, and allergies were reviewed; [facility]; info given to pt; completed case request order, notes to MA. ianneing, Cornelio sullivan MD - 06/03/2019 3:30 PM PDTFormatting of this note might be different from the [facility] Progress Note Date of Office Visit: 06/04/19 Primary Care Physician: Kayla Núñez PA-C Chief Complaint Follow-up; Abdominal Pain; and Constipation History of Present Illness Inocencia Chavez is a 53 y.o. female who was referred for evaluation abdominal pain, bloati ng, and constipation. She has a history of C. diff, and E. coli colitis. She is also bassem betic and is on insulin and metformin. Her other complaint is worsening GERD.She previousl y had a normal colonoscopy in 2009 done in the context of an abnormal CT scan showing coliti s. She was last seen on 12/09/17. At that time she had resolution of diarrhea after stopping me tformin, and improvement in GERD after starting omeprazole 20mg daily. Interval history: Pt reports alternating constipation and diarrhea with associated nausea and bloating. TTg IgA 0.7 on 03.11. CMP was normal, ALP was 132 (norm <129). Lately she has had constipation. She has crampy pain. She has been taking miralax 1 scoop a day. Her stools are never hard and lumpy. She often goes up to 3-4 days between BMs. She is taking bentyl for her cramping pain, this is as needed basis, mostly once in the mor estela. She has been using zofran lately as well, as she has had nausea associated with constipatio n. Patient also reports difficulty with swallowing, food feels like it gets hung up in her eso phagus usually solids. No associated weight loss. She also reports a sensation of early satiety and frequent nausea.. Review of Systems A 10 point review of systems was conducted with the patient, pertinent positives and negati ves per HPI. Problem List Patient Active Problem List Diagnosis LUMBAR RADICULOPATHY SPINAL STENOSIS, LUMBAR OBESITY HERNIATED LUMBAR DISC DIABETES MELLITUS, WITH PERIPHERAL NEUROPATHY SCIATICA, LEFT DEGENERATIVE DISC DISEASE, LUMBAR SPINE THORACIC/LUMBOSACRAL NEURITIS/RADICULITIS UNSPEC Gastroesophageal reflux disease without esophagitis Chronic idiopathic constipation Past Medical History Past Medical History: Diagnosis Date Abdominal pain Asthma Clostridium difficile infection 2015 Diabetes mellitus (HCC) Diverticulosis Hyperlipidemia Hypertension Hypertension Type 2 diabetes mellitus (HCC) Past Surgical History Past Surgical History: Procedure Laterality Date SECTION x3 COLONOSCOPY 2014 GALLBLADDER SURGERY Allergies Allergies Allergen Reactions Cephalexin Other (See Comments) Reaction: Unknown Reaction: Unknown Cyclobenzaprine Other (See Comments) Reaction: Unknown Reaction: Unknown Ferrous Sulfate Other (See Comments) Reaction: Unknown Hydrochlorothiazide Other (See Comments) Reaction: Unknown Reaction: Unknown Sulfamethoxazole-Trimethoprim Other (See Comments) Reaction: Uknown Reaction: Uknown Ferrous Gluconate Other (See Comments) Reaction: Unknown Amlodipine Other (See Comments),Nausea And Vomiting Reaction: Unknown Reaction: Unknown Omeprazole Nausea And Vomiting Intolerance No active intolerances/contraindications Medications Current Outpatient Medications on File Prior to Visit Medication Sig [...] tablet Take 10 mg by mouth nightly. B-D ULTRAFINE III SHORT PEN 31G X 8 MM cholecalciferol (VITAMIN D-3) 2000 units TABS Take 2,000 Units by mouth Daily. Continuous Blood Gluc Sensor (FREESTYLE MAURY 14 DAY SENSOR) [facility] diclofenac (VOLTAREN) 50 mg EC tablet dicyclomine (BENTYL) 10 mg capsule ergocalciferol (VITAMIN D-2) 50,000 units capsule Take 2,000 Units by mouth Daily. fluticasone (FLONASE) 50 mcg/nasal spray gabapentin (NEURONTIN) 100 mg capsule Take 100 mg by mouth. Insulin Aspart (NOVOLOG PENFILL SC) SOLN-inject 10 [...] tablet Take 10 mg by mouth Daily. MAGNESIUM PO Take by mouth. methocarbamol (ROBAXIN) 750 mg tablet Take 750 mg by mouth 3 times daily as needed for Muscle spasms. metoprolol succinate (TOPROL-XL) 50 mg 24 hr tablet Take 50 mg by mouth Daily. mometasone-formoterol (DULERA) 200-5 mcg/puff inhaler Inhale 2 puffs into the lungs Twi ce Daily. montelukast (SINGULAIR) 10 mg tablet Take 10 mg by mouth nightly. nitrofurantoin (MACROBID) 100 mg capsule ondansetron (ZOFRAN ODT) 4 mg disintegrating tablet Take 4 mg by mouth every 8 hours as needed for Nausea. pantoprazole (PROTONIX) 40 mg tablet Take 1 tablet by mouth every morning (before break fast). 30 tablet 3 TRUE METRIX BLOOD GLUCOSE TEST strip TRUEPLUS LANCETS 28G [facility] No current facility-administered medications on file prior to visit. Physical Exam Vitals:BP 130/82 | Pulse 80 | Temp 36.8 C (98.3 F) (Temporal) | Resp 16 | Ht 1.575 m (5' 2") | Wt 98 kg (216 lb 0.8 oz) | SpO2 96% | BMI 39.52 kg/m General: This is a well-developed,well-nurished female in no apparent distress, alert and o riented x 3. Head: Reveals normocephalic, atraumatic Eyes: Sclera anicteric, normal conjunctiva Mouth: Oropharynx is clear without obstruction. No oral lesion. Lungs: Clear to auscultation without rales or wheezes. Cardiac: RRR, no murmurs, rubs or gallops. Abdomen: Soft, nontender, non-distended, without masses or organmegaly. Normoactive bowel sounds. Extremities: Without cyanosis, clubbing or edema. Neuro: Awake, alert, oriented x3. Grossly intact. Non-focal. Skin: Warm and dry, no erythematous rash. [...] 3.7 05/04/2017 1744 BILITOT 0.3 05/04/2017 1744 No results found for: IRON, TIBC, FERRITIN Imaging none Assessment and Plan This is a 53-year-old woman with insulin-dependent diabetes darkly with poor control but im proving, here with symptoms of early satiety, nausea, dysphagia ,bloating, constipation, and abdominal pain. She likely has irritable bowel syndrome with constipation. She is already on Bentyl but co ntinues to have symptoms. Previously has tried MiraLAX fiber supplements, Colace, all of be en overall ineffective. I think Linzess is the next best option for her starting at 290 mcg once daily. She would like to try this medication. We reviewed the side effects of Linzes s and she wishes to proceed. Her last colonoscopy was in March 2010 in the setting of right-sided colitis. She is never before had a screening colonoscopy to check for colon cancer. In the context of having mult iple GI symptoms and no prior screening and I recommend that she proceed with a colonoscopy. I also recommend she have an upper endoscopy for evaluation as she has chronic GERD with so me dysphagia and early satiety. Possible causes could be gastroparesis, esophagitis, strict ure, peptic ulcer disease, H. pylori infection. Will defer endoscopy procedures to be with monitored anesthesia care due to her obesity and diabetes. Also recommend that she get a gastric imaging scan to check for gastroparesis that she is a t high risk for this given her history of diabetes. ICD-10-CM ICD-9-CM 1. Irritable bowel syndrome with constipation K58.1 564.1 linaclotide (LINZESS) 290 mcg cap ten Case Request - OR/ENDO/ASC/OB: EGD, COLONOSCOPY 2. DIABETES MELLITUS, WITH PERIPHERAL NEUROPATHY E11.49 250.60 NM Gastric Emptying Case Request - OR/ENDO/ASC/OB: EGD, COLONOSCOPY 3. Early satiety R68.81 780.94 NM Gastric Emptying Case Request - OR/ENDO/ASC/OB: EGD, COLONOSCOPY 4. Non-intractable cyclical vomiting with nausea G43.A0 536.2 NM Gastric Emptying Case Request - OR/ENDO/ASC/OB: EGD, COLONOSCOPY 5. Sedative dependence (HCC) F13.20 304.10 Case Request - OR/ENDO/ASC/OB: EGD, COLONOSCOPY Follow up: No follow-ups on file. CC: Kayla Núñez PA-C [id number] [place] [address] Portions of this chart may have been created with [employer] voice recognition software. Occasi onal wrong-word or sound-alike substitutions may have occurred due to the inherent parkinson itations of voice recognition software. Please read the chart carefully and recognize, using context, where these substitutions have occurred documented in this encounter Plan of Treatment Not on filedocumented as of this encounter Results NM Gastric Emptying (06/18/2019 10:42 AM PDT) + + | Specimen | + + | | + + + + + | Narrative | Performed At | + + + | NM GASTRIC EMPTYING 06/18/2019 8:26 AM HISTORY:?early satiety, | [facility] | | nausea, diabetes. COMPARISON: None. PROTOCOL: After ingesting | | | scrambled egg with 1 mCi technetium 99m sulfur colloid images are | | | acquired anteriorly and posteriorly on an hourly basis, up to 4 | | | hours. FINDINGS: Activity is noted within the stomach with | | | continued emptying. No reflux is seen. At the one hour brodie, | | | there is 12.4% of gastric contents retained within the stomach. At | | | the two hour brodie, there is 3% of gastric contents retained within | | | the stomach. IMPRESSION - No evidence for delayed gastric | | | emptying. Less than 30% retention at 1 hour can be seen with rapid | | | gastric imaging Normal gastric emptying benchmark percentage | | | values: 60 minutes: <90% retention (>10% emptying) is normal; less | | | than 30% retention (>70% emptying) suggests abnormally rapid | | | emptying. 120 minutes: <60% retention (> 40% emptying) is normal. | | | 180 minutes: <30% retention (> 70% emptying) is normal. Dictated | | | and Signed by: Robbin Andrews MD Electronically signed: 06/18/2019 | | | 1:03 PM | | + + + + + | Procedure Note | + + | Yinka, Rad Results In - 06/18/2019 1:06 PM PDT NM GASTRIC EMPTYING 06/18/2019 8:26 AM | | | | HISTORY:?early satiety, nausea, diabetes. | | | | COMPARISON: None. | | | | PROTOCOL: After ingesting scrambled egg with 1 mCi technetium 99m sulfur colloid | | images are acquired anteriorly and posteriorly on an hourly basis, up to 4 | | hours. | | | | FINDINGS: | | | | Activity is noted within the stomach with continued emptying. No reflux is | | seen. | | | | At the one hour brodie, there is 12.4% of gastric contents retained within the | | stomach. | | At the two hour brodie, there is 3% of gastric contents retained within the | | stomach. | | | | IMPRESSION - | | | | No evidence for delayed gastric emptying. | | | | Less than 30% retention at 1 hour can be seen with rapid gastric imaging | | | | | | Normal gastric emptying benchmark percentage values: | | 60 minutes: <90% retention (>10% emptying) is normal; less than 30% retention | | (>70% emptying) suggests abnormally rapid emptying. | | 120 minutes: <60% retention (> 40% emptying) is normal. | | 180 minutes: <30% retention (> 70% emptying) is normal. | | | | Dictated and Signed by: Robbin Andrews MD | | Electronically signed: 06/18/2019 1:03 PM | + + + +---------+ + + | Performing | Address | City/State/Zipcode | Phone Number | | Organization | | | | + +---------+ + + | [facility] | | | | + +---------+ + + documented in this encounter Visit Diagnoses + + | Diagnosis | + + | Irritable bowel syndrome with constipation - Primary Irritable bowel syndrome | + + | DIABETES MELLITUS, WITH PERIPHERAL NEUROPATHY Type II or unspecified type diabetes | | mellitus with neurological manifestations, not stated as uncontrolled | + + | Early satiety | + + | Non-intractable cyclical vomiting with nausea | + + | Sedative dependence (HCC) Sedative, hypnotic or anxiolytic dependence, unspecified | + + documented in this encounter
--- OUTSIDE RECORDS SUMMARY | ~2019-09-09 | XMS | Clinical Summary ---
Demographics + + + | Address | [address] | | | [place] [address] | + + + | Home Phone | | + + + | Preferred Language | Unknown | + + + | Marital Status | | + + + | Mormonism Affiliation | 1041 | + + + | Race | Unknown | + + + | Ethnic Group | Unknown | + + + Author + + + | Author | [facility] | | | and [place] | + + + | Organization | [facility] | | | and [...] Team Providers + +------+ + | Care Final Inspector Motorcyles Name | Role | Phone | + +------+ + | Kayla Núñez PA-C | PCP | | + +------+ + Allergies + + + + + + | Active Allergy | Reactions | Severity | Noted | Comments | | | | | Date | | + + + + + + | Amlodipine | Other (See | Low | 11/11/19 | Reaction: Unknown | | | Comments), Nausea | | 18 | Reaction: Unknown | | | And Vomiting | | | | + + + + + + | Cephalexin | Other (See Comments) | Medium | 11/11/19 | Reaction: Unknown | | | | | 18 | Reaction: Unknown | + + + + + + | Cyclobenzaprine | Other (See Comments) | Medium | 11/11/19 | Reaction: Unknown | | | | | 18 | Reaction: Unknown | + + + + + + | Ferrous Gluconate | Other (See Comments) | | 11/11/19 | Reaction: Unknown | | | | | 18 | | + + + + + + | Ferrous Sulfate | Other (See Comments) | Medium | 11/11/19 | Reaction: Unknown | | | | | 18 | | + + + + + + | Hydrochlorothiazide | Other (See Comments) | Medium | 11/11/19 | Reaction: Unknown | | | | | 18 | Reaction: Unknown | + + + + + + | Omeprazole | Nausea And Vomiting | Low | 02/18/20 | | | | | | 12 | | + + + + + + | Sulfamethoxazole-Tri | Other (See Comments) | Medium | 05/04/20 | Reaction: Uknown | | methoprim | | | 17 | Reaction: Uknown | + + + + + + Medications + + + +---------+------+------+-------+ | Medication | Sig | Dispensed | Refills | Star | End | Statu | | | | | | t | Date | s | | | | | | Date | | | + + + +---------+------+------+-------+ | aspirin (ASPIRIN | Take 81 mg by mouth | | 0 | 09/1 | | Activ | | EC LO-DOSE) 81 MG EC | Daily. | | | 4/20 | | e | | tablet | | | | 12 | | | + + + +---------+------+------+-------+ | Albuterol Sulfate | AERS-inhale 2 puffs | | 0 | 09/1 | | Activ | | (PROAIR HFA IN) | by mouth four times | | | 4/20 | | e | | | a day as needed | | | 12 | | | + + + +---------+------+------+-------+ | Insulin Glargine | SOLN-1000/ml insulin | | 0 | 09/1 | | Activ | | (LANTUS SOLOSTAR SC) | pen inject 40 units | | | 4/20 | | e | | | under skin at | | | 12 | | | | | bedtime | | | | | | + + + +---------+------+------+-------+ | Insulin Aspart | SOLN-inject 10 units | | 0 | 09/1 | | Activ | | (NOVOLOG PENFILL SC) | under skin three | | | 4/20 | | e | | | times a day before | | | 12 | | | | | meals | | | | | | + + + +---------+------+------+-------+ | lisinopril | Take 40 mg by mouth | | 0 | 09/1 | | Activ | | (PRINIVIL,ZESTRIL) | Daily. | | | 4/20 | | e | | 40 MG tablet | | | | 12 | | | + + + +---------+------+------+-------+ | metoprolol | Take 50 mg by mouth | | 0 | 05/31 | | Activ | | succinate | Daily. | | | 01/17 | | e | | (TOPROL-XL) 50 mg 24 | | | | 12 | | | | hr tablet | | | | | | | + + + +---------+------+------+-------+ | ALPRAZolam (XANAX) | Take 0.25 mg by | | 0 | | | Activ | | 0.25 mg tablet | mouth as needed for | | | | | e | | | Anxiety. | | | | | | + + + +---------+------+------+-------+ | ergocalciferol | Take 2,000 Units by | | 0 | | | Activ | | (VITAMIN D-2) 50,000 | mouth Daily. | | | | | e | | units capsule | | | | | | | + + + +---------+------+------+-------+ | methocarbamol | Take 750 mg by mouth | | 0 | | | Activ | | (ROBAXIN) 750 mg | 3 times daily as | | | | | e | | tablet | needed for Muscle | | | | | | | | spasms. | | | | | | + + + +---------+------+------+-------+ | atorvaSTATin | Take 10 mg by mouth | | 0 | | | Activ | | (LIPITOR) 10 mg | nightly. | | | | | e | | tablet | | | | | | | + + + +---------+------+------+-------+ | cholecalciferol | Take 2,000 Units by | | 0 | | | Activ | | (VITAMIN D-3) 2000 | mouth Daily. | | | | | e | | units TABS | | | | | | | + + + +---------+------+------+-------+ | | Inhale 2 puffs into | | 0 | | | Activ | | mometasone-formotero | the lungs Twice | | | | | e | | l (DULERA) 200-5 | Daily. | | | | | | | mcg/puff inhaler | | | | | | | + + + +---------+------+------+-------+ | loratadine | Take 10 mg by mouth | | 0 | | | Activ | | (CLARITIN) 10 mg | Daily. | | | | | e | | tablet | | | | | | | + + + +---------+------+------+-------+ | montelukast | Take 10 mg by mouth | | 0 | | | Activ | | (SINGULAIR) 10 mg | nightly. | | | | | e | | tablet | | | | | | | + + + +---------+------+------+-------+ | ondansetron | Take 4 mg by mouth | | 0 | | | Activ | | (ZOFRAN ODT) 4 mg | every 8 hours as | | | | | e | | disintegrating | needed for Nausea. | | | | | | | tablet | | | | | | | + + + +---------+------+------+-------+ | pantoprazole | Take 1 tablet by | 30 | 3 | 02/1 | | Activ | | (PROTONIX) 40 mg | mouth every morning | tablet | | 4/20 | | e | | tablet | (before breakfast). | | | 18 | | | + + + +---------+------+------+-------+ | Continuous Blood | | | 0 | 08/1 | | Activ | | Gluc Sensor | | | | 4/20 | | e | | (FREESTYLE MAURY 14 | | | | 19 | | | | DAY SENSOR) MISC | | | | | | | + + + +---------+------+------+-------+ | diclofenac | | | 0 | 10/2 | | Activ | | (VOLTAREN) 50 mg EC | | | | 5/20 | | e | | tablet | | | | 18 | | | + + + +---------+------+------+-------+ | dicyclomine | | | 0 | 07/1 | | Activ | | (BENTYL) 10 mg | | | | 1/20 | | e | | capsule | | | | 19 | | | + + + +---------+------+------+-------+ | fluticasone | | | 0 | 02/2 | | Activ | | (FLONASE) 50 | | | | 6/20 | | e | | mcg/nasal spray | | | | 19 | | | + + + +---------+------+------+-------+ | gabapentin | Take 100 mg by | | 0 | | | Activ | | (NEURONTIN) 100 mg | mouth. | | | | | e | | capsule | | | | | | | + + + +---------+------+------+-------+ | TRUE METRIX BLOOD | | | 0 | 07/1 | | Activ | | GLUCOSE TEST strip | | | | 1/20 | | e | | | | | | 19 | | | + + + +---------+------+------+-------+ | B-D ULTRAFINE III | | | 0 | 08/1 | | Activ | | SHORT PEN 31G X 8 MM | | | | 5/20 | | e | | | | | | 19 | | | + + + +---------+------+------+-------+ | TRUEPLUS LANCETS | | | 0 | 10/2 | | Activ | | 28G MISC | | | | 5/20 | | e | | | | | | 18 | | | + + + +---------+------+------+-------+ | MAGNESIUM PO | Take by mouth. | | 0 | | | Activ | | | | | | | | e | + + + +---------+------+------+-------+ | nitrofurantoin | | | 0 | 08/0 | | Activ | | (MACROBID) 100 mg | | | | 5/20 | | e | | capsule | | | | 19 | | | + + + +---------+------+------+-------+ | ondansetron | As needed for | 2 | 0 | 09/0 | | Activ | | (ZOFRAN) 4 mg tablet | nausea; stop prep; | tablet | | 4/20 | | e | | | take 1 tablet; wait | | | 19 | | | | | 30 min then resume | | | | | | | | prep; repeat 1x prn | | | | | | + + + +---------+------+------+-------+ | linaclotide | Take 1 capsule by | 30 | 4 | 10/ | | Activ | | (LINZESS) 145 mcg | mouth every morning | capsule | | / | | e | | capsuleIndications: | (before breakfast). | | | 19 | | | | Irritable bowel | | | | | | | | syndrome with | | | | | | | | constipation | | | | | | | + + + +---------+------+------+-------+ Active Problems + + + | Problem | Noted Date | + + + | Irritable bowel syndrome with constipation | 07/01/2019 | + + + + + | Overview: Added automatically from request for surgery | | [id number] | + + + + + | Early satiety | 07/01/2019 | + + + + + | Overview: Added automatically from request for surgery | | [id number] | + + + + + | Non-intractable cyclical vomiting with nausea | 07/01/2019 | + + + + + | Overview: Added automatically from request for surgery | | [id number] | + + + + + | Sedative dependence | 07/01/2019 | + + + + + | Overview: Added automatically from request for surgery | | [id number] | + + + + + | Gastroesophageal reflux disease without esophagitis | 11/12/2017 | + + + | Chronic idiopathic constipation | 11/12/2017 | + + + | DEGENERATIVE DISC DISEASE, LUMBAR SPINE | 04/14/2012 | + + + | THORACIC/LUMBOSACRAL NEURITIS/RADICULITIS UNSPEC | 04/14/2012 | + + + | LUMBAR RADICULOPATHY | | + + + | SPINAL STENOSIS, LUMBAR | | + + + | OBESITY | | + + + | HERNIATED LUMBAR DISC | | + + + | DIABETES MELLITUS, WITH PERIPHERAL NEUROPATHY | | + + + | SCIATICA, LEFT | | + + + Resolved Problems + + + + | Problem | Noted | Resolved | | | Date | Date | + + + + | Acute kidney injury | 05/04/20 | | | | 17 | 7 | + + + + | Dehydration | 05/04/20 | | | | 17 | 7 | + + + + | Intractable vomiting with nausea | 05/04/20 | | | | 17 | 7 | + + + + Encounters +--------+ + + + + | Date | Type | Specialty | Care Team | Description | +--------+ + + + + | 07/07/ | Surgery | | Cornelio Doe | SHAYD | | 2018 | | | MD [place] | | +--------+ + + + + | 07/07/ | Anesthesia | | Stan Medeiros | | | 2018 | Event | | DO Jovon | | +--------+ + + + + | 10/08/ | Hospital | | Cornelio Doe | Irritable bowel | | 2019 | Encounter | | MD [place] | syndrome with | | | | | | constipation; Early | | | | | | satiety; | | | | | | Non-intractable | | | | | | cyclical vomiting | | | | | | with nausea; | | | | | | Sedative dependence | | | | | | ([facility]); Special | | | | | | screening for | | | | | | malignant neoplasms, | | | | | | colon; | | | | | | Gastroesophageal | | | | | | reflux disease | | | | | | without esophagitis; | | | | | | Gastric polyp | +--------+ + + + + | 07/07/ | Orders Only | Gastroenterology | Cornelio Doe | Irritable bowel | | 2018 | | | MD [place] | syndrome with | | | | | | constipation | +--------+ + + + + | 06/22/ | Telephone | Gastroenterology | Cornelio Doe | Results, Imaging | | 2018 | | | MD [place] | | +--------+ + + + + | 06/18/ | Hospital | Radiology | Cornelio Doe | | | 2018 | Encounter | | MD [place] | | +--------+ + + + + | 06/18/ | Hospital | Radiology | Cornelio Doe | | | 2018 | Encounter | | MD [place] | | +--------+ + + + + | 06/18/ | Hospital | Radiology | Cornelio Doe | | | 2018 | Encounter | | MD [place] | | +--------+ + + + + | 06/18/ | Hospital | Radiology | Cornelio Doe | | | 2018 | Encounter | | MD [place] | | +--------+ + + + + | 06/18/ | Hospital | Radiology | Cornelio Doe | DIABETES MELLITUS, | | 2019 | Encounter | | MD [place] | WITH PERIPHERAL | | | | | | NEUROPATHY; Early | | | | | | satiety; | | | | | | Non-intractable | | | | | | cyclical vomiting | | | | | | with nausea | +--------+ + + + + from Last 3 Months Family History + +------+ + + | Relation | Name | Status | Comments | + +------+ + + | Father | | Alive | | + +------+ + + | Mother | | | | + +------+ + + Social History + +-------+ +--------+------+ [...] recent travel history available. | + + Last Filed Vital Signs + + + + + | Vital Sign | Reading | Time Taken | Comments | + + + + + | Blood Pressure | 139/60 | 07/07/2019 9:30 AM | | | | | PDT | | + + + + + | Pulse | 75 | 07/07/2019 9:30 AM | | | | | PDT | | + + + + + | Temperature | 36.9 C (98.4 F) | 07/07/2019 8:54 AM | | | | | PDT | | + + + + + | Respiratory Rate | 16 | 07/07/2019 9:30 AM | | | | | PDT | | + + + + + | Oxygen Saturation | 99% | 07/07/2019 9:30 AM | | | | | PDT | | + + + + + | Inhaled Oxygen | - | - | | | Concentration | | | | + + + + + | Weight | 97.3 kg (214 lb 8.1 | 07/07/2019 7:27 AM | | | | oz) | PDT | | + + + + + | Height | 157.5 cm (5' 2") | 07/07/2019 7:27 AM | | | | | PDT | | + + + + + | Body Mass Index | 39.23 | 07/07/2019 7:27 AM | | | | | PDT | | + + + + + Plan of Treatment + + + + + | Health Maintenance | Due Date | Last Done | Comments | + + + + + | Hepatitis C | | | | | Screening | 5 | | | + + + + + | Vaccine: | | | | | Pneumococcal 19-64 | 1 | | | | (1 of - PPSV23) | | | | + + + + + | Diabetic Eye Exam | | | | | | 3 | | | + + + + + | Diabetic Foot Exam | | | | | | 3 | | | + + + + + | Cervical Cancer | | | | | Screening (Pap) | 5 | | | + + + + + | Breast Cancer | | | | | Screening | 0 | | | + + + + + | Vaccine: Zoster (1 | | | | | of 2) | 5 | | | + + + + + | Hemoglobin A1c | | 10/29/2017 | | | Screening | 8 | | | + + + + + | Vaccine: Influenza | | 06/24/2018, 07/17/2017, | | | (#1) | 9 | 06/18/2016, Additional history | | | | | exists | | + + + + + | Vaccine: | | 12/28/2017, 05/30/2010 | | | Dtap/Tdap/Td (3 - | 8 | | | | Td) | | | | + + + + + | Colorectal Cancer | | 07/07/2019, 09/30/2014 | | | Screening | 9 | | | | (Colonoscopy) | | | | + + + + + Procedures + +--------+ + + + | Procedure Name | Priori | Date/Time | Associated Diagnosis | Comments | | | ty | | | | + +--------+ + + + | COLONOSCOPY | | 07/07/2019 | Irritable bowel | | | | | 8:13 AM | syndrome with | | | | | PDT | constipation Type | | | | | | II or unspecified | | | | | | type diabetes | | | | | | mellitus with | | | | | | neurological | | | | | | manifestations, not | | | | | | stated as | | | | | | uncontrolled(250.60) | | | | | | (HCC) Early | | | | | | satiety | | | | | | Non-intractable | | | | | | cyclical vomiting | | | | | | with nausea | | | | | | Sedative dependence | | | | | | ([facility]) | | + +--------+ + + + | EGD | | 07/07/2019 | Irritable bowel | | | | | 8:13 AM | syndrome with | | | | | PDT | constipation Type | | | | | | II or unspecified | | | | | | type diabetes | | | | | | mellitus with | | | | | | neurological | | | | | | manifestations, not | | | | | | stated as | | | | | | uncontrolled(250.60) | | | | | | ([facility]) Early | | | | | | satiety | | | | | | Non-intractable | | | | | | cyclical vomiting | | | | | | with nausea | | | | | | Sedative dependence | | | | | | ([facility]) | | + +--------+ + + + | POC GLUCOSE | Routin | 07/07/2019 | | Results for this | | | e | 8:10 AM | | procedure are in the | | | | PDT | | results section. | + +--------+ + + + | EGD | Routin | 07/07/2019 | | Results for this | | | e | 8:07 AM | | procedure are in the | | | | PDT | | results section. | + +--------+ + + + | COLONOSCOPY | Routin | 07/07/2019 | | Results for this | | | e | 7:56 AM | | procedure are in the | | | | PDT | | results section. | + +--------+ + + + | SURGICAL PATHOLOGY | Routin | 07/07/2019 | | Results for this | | EXAM | e | 12:00 AM | | procedure are in the | | | | PDT | | results section. | + +--------+ + + + | NM GASTRIC EMPTYING | Routin | 06/18/2019 | DIABETES MELLITUS, | Results for this | | | e | 10:42 AM | WITH PERIPHERAL | procedure are in the | | | | PDT | NEUROPATHY Early | results section. | | | | | satiety | | | | | | Non-intractable | | | | | | cyclical vomiting | | | | | | with nausea | | + +--------+ + + + from Last 3 Months Results POC Glucose (07/07/2019 8:10 AM PDT) + +---------+ + + + | Component | Value | Ref Range | Performed | Pathologist | | | | | At | Signature | + +---------+ + + + | Glucose, | 125 (H) | 70 - 109 mg/dL | [facility] | | [facility] | | | [facility] | | | | [facility] | | [facility] - | | | | | | [facility]ATORY | | + +---------+ + + + + + | Specimen | + + | Blood | + + + + + + + | Performing | Address | City/State/Zipcode | Phone Number | | Organization | | | | + + + + + | [facility] | [address] | [place] | [phone] | | [facility] | | [address] | | | - LABORATORY | | | | + + + + + EGD (07/07/2019 8:07 AM PDT) + + | Specimen | + + | | + + + + ----+ | Narrative | Performed At | + + ----+ | | [facility] | | GastroenterologyPatient Name: Inocencia Mendez Date: 07/07/2019 | [place] | | 8:07 AMMRN: [id number] #: [id number] of : | | | 1965Admit Type: AmbulatoryAge: 53Room: Endo Room 2Gender: | | | FemaleNote Status: FinalizedAttending MD: CORNELIO DOE , | | | MDProcedure: Upper GI endoscopyIndications: | | | Dysphagia, HeartburnProviders: CORNELIO DOE MD, | | | Celeste Paez RN, Shyla Baker | | | LAWRENCE Razo, Kayla Naranjo, Rnp, Chi | | | Obie, TechnicianReferring MD: Kayla | | | Lexx (Referring MD)Medicines: Monitored Anesthesia | | | CareComplications: No immediate complications.Procedure: | | | Pre-Anesthesia Assessment: - Prior to the procedure, a History | | | and Physical was performed, and patient medications and | | | allergies were reviewed. The patient is competent. The risks | | | and benefits of the procedure and the sedation options and | | | risks were discussed with the patient. All questions were | | | answered and informed consent was obtained. Patient identification and | | | proposed procedure were verified by the physician, the nurse | | | and the anesthesiologist in the pre-procedure area in the | | | procedure room. Mental Status Examination: alert and oriented. | | | Airway Examination: normal oropharyngeal airway and neck | | | mobility. Respiratory Examination: clear to auscultation. CV | | | Examination: normal. Prophylactic Antibiotics: The patient does | | | not require prophylactic antibiotics. Prior Anticoagulants: | | | The patient has taken no previous anticoagulant or antiplatelet | | | agents. ASA Grade Assessment: III - A patient with severe | | | systemic disease. After reviewing the risks and benefits, the | | | patient was deemed in satisfactory condition to undergo the | | | procedure. The anesthesia plan was to use monitored anesthesia | | | care (MAC). Immediately prior to administration of medications, | | | the patient was re-assessed for adequacy to receive sedatives. | | | The heart rate, respiratory rate, oxygen saturations, blood | | | pressure, adequacy of pulmonary ventilation, and response to | | | care were monitored throughout the procedure. The physical | | | status of the patient was re-assessed after the procedure. After | | | obtaining informed consent, the endoscope was passed under direct | | | vision. Throughout the procedure, the patient's blood pressure, | | | pulse, and oxygen saturations were monitored continuously. The | | | Endoscope was introduced through the mouth, and advanced to the | | | second part of duodenum. The upper GI endoscopy was | | | accomplished without difficulty. The patient tolerated the | | | procedure well.Findings: The upper third of the esophagus and | | | middle third of the esophagus were normal. Biopsies were taken | | | with a cold forceps for histology. One tongue of salmon-colored | | | mucosa was present at 36 cm. No other visible abnormalities | | | were present. The maximum longitudinal extent of these | | | esophageal mucosal changes was 1 cm in length. Biopsies were taken | | | with a cold forceps for histology. The Z-line was found 37 | | | cm from the incisors. Multiple 2 to 4 mm sessile polyps with no | | | bleeding and no stigmata of recent bleeding were found in the | | | gastric fundus. One of these polyps had dark pigmentation in | | | it, so this polyp was removed with a cold snare. Resection and | | | retrieval were complete. The other polyps had the typical | | | appearance of benign fundic gland polyps so they were left in | | | place. The gastric body, incisura, gastric antrum and pylorus | | | were normal. Retroflexion in the stomach confirmed the above | | | findings. There is no hiatal hernia. The duodenal bulb | | | and second portion of the duodenum were normal.Impression: - | | | Normal upper third of esophagus and middle third of esophagus. | | | Biopsied. 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 Biopsied. - Z-line, 37 cm from | | | the incisors. - Multiple gastric polyps. One of these polyps | | | had dark pigmentation in it, so this polyp was removed with a | | | cold snare. Resection and retrieval were complete. The other | | | polyps had the typical appearance of benign fundic gland polyps | | | so they were left in place. - Normal gastric body, incisura, | | | antrum and pylorus. - Normal duodenal bulb and second portion of | | | the duodenum.Recommendation: - Await pathology results. - | | | Repeat upper endoscopy in 3 years for surveillance based on pathology | | | results (if esophageal biopsies confirm Demarco's esophagus). | | | - See the other procedure note for documentation of additional | | | recommendations. - Resume regular diet today.CORNELIO KENNEDY | | | MD BROOK07/07/2019 8:57:01 AMThis report has been signed | | | electronically.Number of Addenda: 0Note Initiated On: 07/07/2019 8:07 | | | AMScope In: 8:22:49 AMScope Out: 8:32:39 AM [facility] | | | [facility], [address] [place] [id number] | | | [phone] | | | - Normal duodenal bulb and second portion of the duodenum. | | |Recommendation: | | | - Await pathology results. | | | - Repeat upper endoscopy in 3 years for surveillance based on pathology | | | results (if esophageal biopsies confirm Demarco's esophagus). | | | - See the other procedure note for documentation of additional | | | recommendations. | | | - Resume regular diet today. | | |CORNELIO DOE MD | | |07/07/2019 8:57:01 AM | | |This report has been signed electronically. | | |Number of Addenda: 0 | | |Note Initiated On: 07/07/2019 8:07 AM | | |Scope In: 8:22:49 AM | | |Scope Out: 8:32:39 AM | | | [facility], [address] [place] [address] | | | [id number] | | + + ----+ + +---------+ + + | Performing | Address | City/State/Zipcode | Phone Number | | Organization | | | | + +---------+ + + | [facility] [place] | | | | + +---------+ + + COLONOSCOPY (07/07/2019 7:56 AM PDT) + + | Specimen | + + | | + + + + -+ | Narrative | Performed At | + + -+ | | [facility] | | GastroenterologyPatient Name: Inocencia ChavezProcedsegundo Date: 07/07/2019 | [place] | | 7:56 AMMRN: [id number] #: [id number] of : | | | 1965Admit Type: AmbulatoryAge: 53Room: Endo Room 2Gender: | | | FemaleNote Status: FinalizedAttending MD: CORNELIO DOE , | | | MDProcedure: ColonoscopyIndications: Screening | | | for colorectal malignant neoplasm, Incidental | | | constipation notedProviders: CORNELOI DOE MD, | | | Celeste Paez RN, Shyla Baker | | | LAWRENCE Razo, Kayla Naranjo, Rnp, Chi | | | Obie TechnicianReferring MD: Kayla | | | Lexx (Referring MD)Medicines: Monitored Anesthesia | | | CareComplications: No immediate complications.Procedure: | | | Pre-Anesthesia Assessment: - Prior to the procedure, a History | | | and Physical was performed, and patient medications and | | | allergies were reviewed. The patient is competent. The risks | | | and benefits of the procedure and the sedation options and | | | risks were discussed with the patient. All questions were | | | answered and informed consent was obtained. Patient identification and | | | proposed procedure were verified by the physician, the nurse | | | and the anesthesiologist in the pre-procedure area in the | | | procedure room. Mental Status Examination: alert and oriented. | | | Airway Examination: normal oropharyngeal airway and neck | | | mobility. Respiratory Examination: clear to auscultation. CV | | | Examination: normal. Prophylactic Antibiotics: The patient does | | | not require prophylactic antibiotics. Prior Anticoagulants: | | | The patient has taken no previous anticoagulant or antiplatelet | | | agents. ASA Grade Assessment: III - A patient with severe | | | systemic disease. After reviewing the risks and benefits, the | | | patient was deemed in satisfactory condition to undergo the | | | procedure. The anesthesia plan was to use monitored anesthesia | | | care (MAC). Immediately prior to administration of medications, | | | the patient was re-assessed for adequacy to receive sedatives. | | | The heart rate, respiratory rate, oxygen saturations, blood | | | pressure, adequacy of pulmonary ventilation, and response to | | | care were monitored throughout the procedure. The physical | | | status of the patient was re-assessed after the procedure. After | | | I obtained informed consent, the scope was passed under direct | | | vision. Throughout the procedure, the patient's blood pressure, | | | pulse, and oxygen saturations were monitored continuously. The | | | Colonoscope was introduced through the anus and advanced to the | | | cecum, identified by appendiceal orifice and ileocecal valve. | | | The colonoscopy was performed without difficulty. The patient | | | tolerated the procedure well. The quality of the bowel | | | preparation was evaluated using the BBPS ([place] Bowel | | | Preparation Scale) with scores of: Right Colon = 2 (minor amount | | | of residual staining, small fragments of stool and/or opaque | | | liquid, but mucosa seen well), Transverse Colon = 2 (minor | | | amount of residual staining, small fragments of stool and/or | | | opaque liquid, but mucosa seen well) and Left Colon = 2 (minor | | | amount of residual staining, small fragments of stool and/or | | | opaque liquid, but mucosa seen well). The total BBPS score | | | equals 6.Findings: The perianal and digital rectal examinations | | | were normal. The descending colon, transverse colon, ascending | | | colon and cecum appeared normal. Multiple small-mouthed | | | diverticula were found in the sigmoid colon. The rectum appeared | | | normal. The retroflexed view of the distal rectum and anal | | | verge was normal and showed no anal or rectal | | | abnormalities.Impression: - The descending colon, transverse | | | colon, ascending colon and cecum are normal. - | | | Diverticulosis in the sigmoid colon. - The rectum is normal. | | | - The distal rectum and anal verge are normal on retroflexion view. | | | - No specimens collected. - Clinical history consistent | | | with IBS with constipationRecommendation: - The patient will be | | | observed post-procedure, until all discharge criteria are met. | | | - Repeat colonoscopy in 10 years for screening purposes. - | | | Reduce Linzess (linaclotide) dose to 145 mcg PO daily.CORNELIO KENNEDY | | | MD BROOK07/07/2019 8:51:16 AMThis report has been signed | | | electronically.Number of Addenda: 0Note Initiated On: 07/07/2019 7:56 | | | AMScope Withdrawal Time: 0 hours 5 minutes 17 seconds Scope In: | | | 8:34:42 AMScope Out: 8:47:10 AM [facility] | | | [place], [address] [place] [id number] | | | - No specimens collected. | | | - Clinical history consistent with IBS with constipation | | |Recommendation: | | | - The patient will be observed post-procedure, until all discharge | | | criteria are met. | | | - Repeat colonoscopy in 10 years for screening purposes. | | | - Reduce Linzess (linaclotide) dose to 145 mcg PO daily. | | |CORNELIO DOE MD | | |07/07/2019 8:51:16 AM | | |This report has been signed electronically. | | |Number of Addenda: 0 | | |Note Initiated On: 07/07/2019 7:56 AM | | |Scope Withdrawal Time: 0 hours 5 minutes 17 seconds | | |Scope In: 8:34:42 AM | | |Scope Out: 8:47:10 AM | | | [facility], [address] [place] [address] | | | [id number] | | + + -+ + +---------+ + + | Performing | Address | City/State/Zipcode | Phone Number | | Organization | | | | + +---------+ + + | [facility] | | | | + +---------+ + + Surgical Pathology Exam (07/07/2019 12:00 AM PDT) + + | Specimen | + + | | + + + + + | Narrative | Performed At | + + + | SPECIMEN(S): A GASTRIC FUNDUS POLYP SPECIMEN(S): B MID ESOPHAGEAL | [facility] | | BIOPSY SPECIMEN(S): C ESOPHAGEAL BIOPSY AT 36 CM SPECIMEN SOURCE: | INCYTE | | A. GASTRIC FUNDUS POLYP B. MID ESOPHAGEAL BIOPSY C. 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 These findings, together with the gross | | | examination, support the pathologic diagnosis. FINAL PATHOLOGIC | | | DIAGNOSIS: A. Gastric fundus polyp, biopsy: - Benign fundic gland | | | polyp. B. Mid esophageal biopsy: - Benign esophageal mucosa, | | | negative for increased epithelial eosinophils. - Negative for | | | glandular epithelium. C. Esophageal biopsy at 36 cm: - | | | Squamocolumnar junction with specialized intestinal (goblet cell) | | | metaplasia, negative for definite dysplasia. JVR:cox monett:C2NR | | | GROSS DESCRIPTION: Three specimens are received in three containers, | | | labeled "LM." A. The specimen, labeled "LM, gastric fundus | | | polyp," is received in formalin and consists of a 0.4 cm greatest | | | dimension chandler-white soft tissue fragment. The specimen is entirely | | | submitted in cassette (A1). B. The specimen, labeled "LM, mid | | | esophageal BX," is received in formalin and consists of four chandler-white | | | soft tissue fragments ranging from 0.1-0.2 cm in greatest dimension. | | | The specimen is entirely submitted in cassette (B1). C. The | | | specimen, labeled "LM, esophageal biopsy at 36 cm," is received in | | | formalin and consists of three chandler-white soft tissue fragments ranging | | | from 0.1-0.2 cm in greatest dimension. The specimen is entirely | | | submitted in cassette (C1). AR (under the direct supervision of a | | | pathologist) The Gross Description was prepared using a voice | | | recognition system. The report was reviewed for accuracy; however, | | | sound-alike word errors, addition and/or deletions may occur. If | | | there is any question about this report, please contact Client | | | Services. PERFORMING LABORATORY: The technical component was | | | performed by [facility], [address] [place] [address] | | | (Rail Car Repairer: Anu Shukla MD; CLIA# [id number]). Professional | | | interpretation was performed by [facility] [place] | | | [facility], [address] [place] [address] | | | [id number] (Rail Car Repairer: Zackery Rubi M.D.). Diagnostician: | | | Zackery Rubi MD Pathologist Electronically Signed 07/08/2019 | | | | | + + + + +---------+ + + | Performing | Address | City/State/[facility] Centercode | Phone Number | | Organization | | | | + +---------+ + + | [facility] | | | | | [employer] | | | | + +---------+ + + NM Gastric Emptying (06/18/2019 10:42 AM PDT) [...] | | | + +---------+ + + from Last 3 Months Insurance + +--------+ +--------+-------+---------+--------+ | Payer | Benefi | Subscriber | Effect | Phone | Address | Type | | | t Plan | ID | joselyn | | | | | | / | | Dates | | | | | | Group | | | | | | + +--------+ +--------+-------+---------+--------+ | BCBS | BCBS | [id number] | 01/30/20 | | | PPO | | | FEDERA | | 16-Pre | | | | | | L FEP | | sent | | | | + +--------+ +--------+-------+---------+--------+ | BCBS | BCBS | [id number] | 01/30/20 | | | PPO | | | FEDERA | | 16-Pre | | | | | | L FEP | | sent | | | | + +--------+ +--------+-------+---------+--------+ | [employer] | IHS | [id number] | 10/31/19 | | | Indemn | | SERVICE | YELLOW | | 18-Pre | | | ity | | | HAWK | | sent | | | | + +--------+ +--------+-------+---------+--------+ + +--------+ +--------+ + + | Guarantor Name | Accoun | Relation to | Date | Phone | Billing Address | | | t Type | Patient | of | | | | | | | | | | + +--------+ +--------+ + + | Inocencia Chavez | Person | Self | [birth year] | [id number] | | | al/Fam | | 1965 | [phone] | [place] [id number] | | | albaro | | | 0 (Home) | | + +--------+ +--------+ + + | Inocencia Chavez | Person | Self | [birth year] | [id number] | | | al/Fam | | 1965 | [phone] | [place] [id number] | | | albaro | | | 0 (Home) | | | | | | | [phone] | | | | | | | 0 (Work) | | + +--------+ +--------+ + + | HemaInocencia larose | Person | Self | [birth year] | [id number] | | | al/Po | | 1965 | [phone] | [place] [id number] | | | [place]baro | | | 0 (Home) | | + +--------+ +--------+ + + Advance Directives + + + + + | Type | Date Recorded | Patient | Explanation | | | | Blood And Plasma Laboratory Assistant | | + + + + + | Power of | | | | | | | | | + + + + + | Advance | 05/05/2017 2:37 | | | | Directive | PM | | | + + + + + + + + + + | Code Status | Date | Date | Comments | | | Activated | Inactivated | | + + + + + | Full Code | 05/04/2017 | 05/05/2017 | | | | 9:03 PM | 5:04 PM | | + + + + +
--- OUTSIDE RECORDS SUMMARY | ~2019-09-09 | XMS | Encounter Summary ---
Demographics + + + | Address | [address] | | | [place] [address] | + + + | Home Phone | | + + + | Preferred Language | Unknown | + + + | Marital Status | | + + + | Holiness Affiliation | 1041 | + + + | Race | Unknown | + + + | Ethnic Group | Unknown | + + + Author + + + | Author | [facility] | | | and [place] | + + + | Organization | [facility] | | | and [...] Team Providers + +------+ + | Care Variety Lathe Operator Name | Role | Phone | + [...] unspecified | MD Corbin | [address] | | | | | type | [address] | [place], | | | | | diabetes | [place] | [place] | | | | | mellitus | [place], [place] | [address] | | | | | with | [address] | Phone: | | | | | neurological | Phone: | [phone] | | | | | | [phone] | Fax: | | | | | manifestatio | Fax: | [phone] | | | | | ns, not | [phone] | | | | | | stated [...] | | | | pain | PA-C [address] | [address], | | | | | Bloating | | [address] | | | | | Procedures | [address] | [address]GELA [address]ER, | | | | | OFFICE VISIT | WAY | [place] [address] | | | | | | [place] | Phone: | | | | | | [place] [address] | [phone] | | | | | | Phone: | Fax: | | | | | | [phone] | [phone] | | | | | | Fax: | | | | | | | [phone] | | +--------+--------+ + + + + Encounter Details +--------+---------+ + + + | Date | Type | Department | Care Team | Description | +--------+---------+ + + + | 06/03/ | Office | [facility] | Cornelio Edmond | Irritable bowel | | 2019 | Visit | GASTROENTEROLOGY | MD Corbin [address] | syndrome with | | | | [address] [place] | [address] [place] | constipation | | | | [address] [place], [place] | [place] [address] | (Primary Dx); | | | | [address] | [phone] | DIABETES MELLITUS, | | | | [phone] | | WITH PERIPHERAL | | | | | | NEUROPATHY; Early | | | | | | satiety; | | | | | | Non-intractable | | | | | | cyclical vomiting | | | | | | with nausea; | | | | | | Sedative dependence | | | | | | ([facility]) | +--------+---------+ + + + Social History [...] hx, and allergies were reviewed; [facility]; info given to pt; completed case [...] Gluc Sensor (FREESTYLE MAURY 14 DAY SENSOR) [facility] diclofenac (VOLTAREN) 50 mg EC tablet dicyclomine [...] BLOOD GLUCOSE TEST strip TRUEPLUS LANCETS 28G [facility] No current facility-administered medications on file prior [...] follow-ups on file. CC: Kayla Núñez PA-C [id number] [place] [address] Portions of this chart may have been created with [employer] voice recognition software. Occasi onal wrong-word or [...]
--- OUTSIDE RECORDS SUMMARY | ~2019-09-09 | XMS | Encounter Summary ---
Demographics + + + | Address | [address] | | | [place] [address] | + + + | Home Phone | | + + + | Preferred Language | Unknown | + + + | Marital Status | | + + + | Hoahaoism Affiliation | 1041 | + + + | Race | Unknown | + + + | Ethnic Group | Unknown | + + + Author + + + | Author | [facility] | | | and [place] | + + + | Organization | [facility] | | | and [...] Team Providers + +------+ + | Care Retail Sales Associate Name | Role | Phone | + [...] unspecified | MD Corbin | [address] | | | | | type | [address] | [place], | | | | | diabetes | [place] | [place] | | | | | mellitus | [place], [place] | [address] | | | | | with | [address] | Phone: | | | | | neurological | Phone: | [phone] | | | | | | [phone] | Fax: | | | | | manifestatio | Fax: | [phone] | | | | | ns, not | [phone] | | | | | | stated [...] | | | | pain | PA-C [address] | [address], | | | | | Bloating | | [address] | | | | | Procedures | [address] | [address], | | | | | OFFICE VISIT | WAY | [place] [address] | | | | | | [place] | Phone: | | | | | | [place] [address] | [phone] | | | | | | Phone: | Fax: | | | | | | [phone] | [phone] | | | | | | Fax: | | | | | | | [phone] | | +--------+--------+ + + + + Encounter Details +--------+---------+ + + + | Date | Type | Department | Care Team | Description | +--------+---------+ + + + | 06/03/ | Office | [facility] | Cornelio Edmond | Irritable bowel | | 2019 | Visit | GASTROENTEROLOGY | MD Corbin [address] | syndrome with | | | | [address] | [address] [place] | constipation | | | | [address] [place], [place] | [place] [address] | (Primary Dx); | | | | [address] | [phone] | DIABETES MELLITUS, | | | | [phone] | | WITH PERIPHERAL | | | | | | NEUROPATHY; Early | | | | | | satiety; | | | | | | Non-intractable | | | | | | cyclical vomiting | | | | | | with nausea; | | | | | | Sedative dependence | | | | | | ([facility]) | +--------+---------+ + + + [...] hx, and allergies were reviewed; [facility]; info given to pt; completed case [...] Gluc Sensor (FREESTYLE MAURY 14 DAY SENSOR) [facility] diclofenac (VOLTAREN) 50 mg EC tablet dicyclomine [...] BLOOD GLUCOSE TEST strip TRUEPLUS LANCETS 28G [facility] No current facility-administered medications on file prior [...] follow-ups on file. CC: Kayla Núñez PA-C [id number] [place] [address] Portions of this chart may have been created with [employer] voice recognition software. Occasi onal wrong-word or [...]
--- OUTSIDE RECORDS SUMMARY | ~2019-09-09 | XMS | Encounter Summary ---
Demographics + + + | Address | [address] | | | [place] [address] | + + + | Home Phone | | + + + | Preferred Language | Unknown | + + + | Marital Status | | + + + | Adventism Affiliation | 1041 | + + + [...] Team Providers + +------+ + | Care Perioperative Nurse Name | Role | Phone | + +------+ + | Kayla Núñez PA-C | PCP | | + +------+ + Reason for Visit + + + | Reason | Comments | + + + | Imaging Only | GES scheduled | + + + Encounter Details +--------+ + + + + | Date | Type | Department | Care Team | Description | +--------+ + + + + | 06/04/ | Telephone | [facility] | Cornelio Edmond | Imaging Only (GES | | 2019 | | GASTROENTEROLOGY | MD Corbin [address] | scheduled) | | | | [address] [place] | [address] [place] | | | | | [address] | [facility] [place] [address] | | | | | [address] | [phone] | | | | | [phone] | | | +--------+ + + + + Social History + +-------+ [...] + + documented as of this encounter Functional Status + + + [...] + + documented as of this encounter Plan of Treatment Not on filedocumented as of this encounter Visit Diagnoses Not on filedocumented in this encounter"
--- OUTSIDE RECORDS SUMMARY | ~2019-09-09 | XMS | Encounter Summary ---
Demographics + + + | Address | [address] | | | [place] [address] | + + + | Home Phone | | + + + | Preferred Language | Unknown | + + + | Marital Status | | + + + | Roman Catholic Affiliation | 1041 | + + + | Race | Unknown | + + + | Ethnic Group | Unknown | + + + Author + + + | Author | [facility] | | | and [place] | + + + | Organization | [facility] | | | [...] Team Providers + +------+ + | Care Post Form Remover Name | Role | Phone | + +------+ + | Kayla Núñez PA-C | PCP | | + +------+ + Reason for Visit + + + | Reason | Comments | + + + | Results, Imaging | | + + + Encounter Details +--------+ + + + + | Date | Type | Department | Care Team | Description | +--------+ + + + + | 06/22/ | Telephone | [facility] | Cornelio Edmond | Results, Imaging | | 2019 | | GASTROENTEROLOGY | MD Corbin [address] | | | | | [address] [place] | [address] [place] | | | | | [address] [place], [place] | [place] [address] | | | | | [address] | [phone] | | | | | [phone] | | | +--------+ + + + [...]
--- OUTSIDE RECORDS SUMMARY | ~2019-09-09 | XMS | Encounter Summary ---
Demographics + + + | Address | [address] | | | [place] [address] | + + + | Home Phone | | + + + | Preferred Language | Unknown | + + + | Marital Status | | + + + | Hinduism Affiliation | 1041 | + + + | Race | Unknown | + + + | Ethnic Group | Unknown | + + + Author + + + | Author | [facility] | | | and [place] | + + + | Organization | [facility] | | | [...] Team Providers + +------+ + | Care Ocean Freight Forwarder Name | Role | Phone | + +------+ + | Kayla Núñez PA-C | PCP | | + +------+ + Reason for Visit Diagnostic/Screening (Routine) +--------+--------+ + + + + [...] unspecified | MD Corbin | [address] | | | | | type | [address] | [place], | | | | | diabetes | [place] | [place] | | | | | mellitus | [place], [place] | [address] | | | | | with | [address] | Phone: | | | | | neurological | Phone: | [phone] | | | | | | [phone] | Fax: | | | | | manifestatio | Fax: | [phone] | | | | | ns, not | [phone] | | | | | | stated [...] +--------+--------+ + + + + Encounter Details +--------+ + + + + | Date | Type | Department | Care Team | Description | +--------+ + + + + | 06/18/ | Hospital | [facility] | Cornelio Edmond | | | 2019 | Encounter | [facility] | MD Corbin [address] | | | | | MEDICINE [address] [place] | | | | | [address] [place], | [place] [address] | | | | | [place] [address] | [phone] | | | | | [phone] | | | +--------+ + + + [...] + + documented as of this encounter Medications at Time of Discharge + + + +---------+ + + | Medication | Sig | Dispensed | Refills | Start | End Date | | | | | | Date | | + + + +---------+ + + | Albuterol Sulfate | AERS-inhale 2 puffs | | 0 | 06/13/20 | | | (PROAIR HFA IN) | by mouth four times | | | 12 | | | | a day as needed | | | | | + + + +---------+ + + | ALPRAZolam (XANAX) | Take 0.25 mg by | | 0 | | | | 0.25 mg tablet | mouth as needed for | | | | | | | Anxiety. | | | | | + + + +---------+ + + | aspirin (ASPIRIN | Take 81 mg by mouth | | 0 | 06/13/20 | | | EC LO-DOSE) 81 MG EC | Daily. | | | 12 | | | tablet | | | | | | + + + +---------+ + + | atorvaSTATin | Take 10 mg by mouth | | 0 | | | | (LIPITOR) 10 mg | nightly. | | | | | | tablet | | | | | | + + + +---------+ + + | B-D ULTRAFINE III | | | 0 | 08/15/20 | | | SHORT PEN 31G X 8 MM | | | | 19 | | + + + +---------+ + + | cholecalciferol | Take 2,000 Units by | | 0 | | | | (VITAMIN D-3) 2000 | mouth Daily. | | | | | | units TABS | | | | | | + + + +---------+ + + | Continuous Blood | | | 0 | 08/14/20 | | | Gluc Sensor | | | | 19 | | | (FREESTYLE MAURY 14 | | | | | | | DAY SENSOR) MISC | | | | | | + + + +---------+ + + | diclofenac | | | 0 | 10/25/20 | | | (VOLTAREN) 50 mg EC | | | | 18 | | | tablet | | | | | | + + + +---------+ + + | dicyclomine | | | 0 | 04/09/20 | | | (BENTYL) 10 mg | | | | 19 | | | capsule | | | | | | + + + +---------+ + + | ergocalciferol | Take 2,000 Units by | | 0 | | | | (VITAMIN D-2) 50,000 | mouth Daily. | | | | | | units capsule | | | | | | + + + +---------+ + + | fluticasone | | | 0 | 11/25/19 | | | (FLONASE) 50 | | | | 19 | | | mcg/nasal spray | | | | | | + + + +---------+ + + | gabapentin | Take 100 mg by | | 0 | | | | (NEURONTIN) 100 mg | mouth. | | | | | | capsule | | | | | | + + + +---------+ + + | Insulin Aspart | SOLN-inject 10 units | | 0 | 06/13/20 | | | (NOVOLOG PENFILL SC) | under skin three | | | 12 | | | | times a day before | | | | | | | meals | | | | | + + + +---------+ + + | Insulin Glargine | SOLN-1000/ml insulin | | 0 | 06/13/20 | | | (LANTUS SOLOSTAR SC) | pen inject 40 units | | | 12 | | | | under skin at | | | | | | | bedtime | | | | | + + + +---------+ + + | lisinopril | Take 40 mg by mouth | | 0 | 06/13/20 | | | (PRINIVIL,ZESTRIL) | Daily. | | | 12 | | | 40 MG tablet | | | | | | + + + +---------+ + + | loratadine | Take 10 mg by mouth | | 0 | | | | (CLARITIN) 10 mg | Daily. | | | | | | tablet | | | | | | + + + +---------+ + + | MAGNESIUM PO | Take by mouth. | | 0 | | | + + + +---------+ + + | methocarbamol | Take 750 mg by mouth | | 0 | | | | (ROBAXIN) 750 mg | 3 times daily as | | | | | | tablet | needed for Muscle | | | | | | | spasms. | | | | | + + + +---------+ + + | metoprolol | Take 50 mg by mouth | | 0 | 06/13/20 | | | succinate | Daily. | | | 12 | | | (TOPROL-XL) 50 mg 24 | | | | | | | hr tablet | | | | | | + + + +---------+ + + | | Inhale 2 puffs into | | 0 | | | | mometasone-formotero | the lungs Twice | | | | | | l (DULERA) 200-5 | Daily. | | | | | | mcg/puff inhaler | | | | | | + + + +---------+ + + | montelukast | Take 10 mg by mouth | | 0 | | | | (SINGULAIR) 10 mg | nightly. | | | | | | tablet | | | | | | + + + +---------+ + + | nitrofurantoin | | | 0 | 08/05/20 | | | (MACROBID) 100 mg | | | | 19 | | | capsule | | | | | | + + + +---------+ + + | ondansetron | Take 4 mg by mouth | | 0 | | | | (ZOFRAN ODT) 4 mg | every 8 hours as | | | | | | disintegrating | needed for Nausea. | | | | | | tablet | | | | | | + + + +---------+ + + | ondansetron | As needed for | 2 | 0 | 06/03/20 | | | (ZOFRAN) 4 mg tablet | nausea; stop prep; | tablet | | 19 | | | | take 1 tablet; wait | | | | | | | 30 min then resume | | | | | | | prep; repeat 1x prn | | | | | + + + +---------+ + + | pantoprazole | Take 1 tablet by | 30 | 3 | 11/13/19 | | | (PROTONIX) 40 mg | mouth every morning | tablet | | 18 | | | tablet | (before breakfast). | | | | | + + + +---------+ + + | TRUE METRIX BLOOD | | | 0 | 04/09/20 | | | GLUCOSE TEST strip | | | | 19 | | + + + +---------+ + + | TRUEPLUS LANCETS | | | 0 | 07/24/20 | | | 28G MISC | | | | 18 | | + + + +---------+ + + | linaclotide | Take 1 capsule by | 30 | 2 | 06/03/20 | | | (LINZESS) 290 mcg | mouth every morning | capsule | | 19 | 9 | | capsuleIndications: | (before breakfast). | | | | | | Irritable bowel | | | | | | | syndrome with | | | | | | | constipation | | | | | | + + + +---------+ + + | sodium | Take 177 mLs by | 2 | 0 | 06/03/20 | | | sulfate-potassium | mouth See Admin | Bottle | | 19 | 9 | | sulfate-magnesium | Instructions. Take | | | | | | sulfate (SUPREP | one kit, first dose | | | | | | BOWEL PREP KIT) oral | at 4pm, second dose | | | | | | solution | at 8pm day before | | | | | | | procedure | | | | | + + + +---------+ + + documented as of this encounter Plan of Treatment Not on filedocumented as of this encounter Procedures + +--------+ + + + | [...] | | + +--------+ + + + documented in this encounter Results NM Gastric Emptying (06/18/2019 [...] Procedure Note | + + | Yinka, Ward Results In - 06/18/2019 1:06 PM PDT [...] + documented in this encounter Visit Diagnoses Not on filedocumented in this encounter"
--- OUTSIDE RECORDS SUMMARY | ~2019-09-09 | XMS | Encounter Summary ---
Demographics + + + | Address | [address] | | | [place] [address] | + + + | Home Phone | | + + + | Preferred Language | Unknown | + + + | Marital Status | | + + + | Hoahaoism Affiliation | 1041 | + + + | Race | Unknown | + + + | Ethnic Group | Unknown | + + + Author + + + | Author | [facility] | | | and [place] | + + + | Organization | [facility] | | | [...] Team Providers + +------+ + | Care Application Specialist Name | Role | Phone | + +------+ + PCP | Unavailable | + +------+ + Encounter Details +--------+ + + + + | Date | Type | Department | Care Team | Description | +--------+ + + + + | 07/24/ | Hospital | [facility] | Conversion | | | 1994 - | Encounter | SYSTEM GENERIC OP | Transaction, | | | | | CONVERSION [address] | Provider Unknown | | | 10/19/ | | [address] [place], [place] | [phone] | | | 1995 | | [address] | | | | | | [phone] | | | +--------+ + + + + Social History + +-------+ +--------+------+ | Tobacco Use | Types | Packs/Day | Years | Date | | | | | Used | | + +-------+ +--------+------+ | Never Assessed | | | | | + +-------+ +--------+------+ + + + | Sex Assigned at [...]
--- OUTSIDE RECORDS SUMMARY | ~2019-09-09 | XMS | Clinical Summary ---
Demographics + + + | Address | [address] | | | [place] [address] | + + + | Home Phone | | + + + | Preferred Language | Unknown | + + + | Marital Status | Single | + + + | Anabaptism Affiliation | Unknown | + + + | Race | Unknown | + + + | Ethnic Group | Unknown | + + + Author + + + | Author | [facility] (Historical as of | | | 05-16-19) | + + + | Organization | [facility] (Historical as of | | | 05-16-19) | + + + | Address | Unknown | + + + | Phone | Unavailable | + + + Support + + +---------+ + | Name | Relationship | Address | Phone | + + +---------+ + | Scott Quiñonez | ECON | Unknown | | + + +---------+ + Care Team Providers + +------+ + | Care Ground Host/Hostess Name | Role | Phone | + +------+ + | Kayla Núñez PA-C | PP | | + +------+ + Allergies + + + + + + | Active Allergy | Reactions | Severity | Noted | Comments | | | | | Date | | + + + + + + | Amlodipine | Nausea and Vomiting | Low | 11/11/19 | Reaction: Unknown [...] Ferrous Gluconate | Other (See Comments) | Medium | 11/11/19 | Reaction: Unknown | | | | | 18 | | + + + + + + | Hydrochlorothiazide | Other (See Comments) | Medium | 11/11/19 | Reaction: Unknown | | | | | 18 | | + + + + + + | Omeprazole | Nausea and Vomiting | Low | 02/18/20 | | | | | | 12 | | + + + + + + | Sulfamethoxazole-Tri | Other (See Comments) | Medium | 05/04/20 | Reaction: Uknown | | methoprim | | | 17 | | + + + + + + Current Medications + + +-------+---------+------+------+-------+ | Prescription | Sig. | Disp. | Refills | Star | End | Statu | | | | | | t | Date | s | | | | | | Date | | | + + +-------+---------+------+------+-------+ | loratadine | Take 10 mg by mouth | | | | | Activ | | (CLARITIN) 10 MG | daily. | | | | | e | | tablet | | | | | | | + + +-------+---------+------+------+-------+ | montelukast | Take 10 mg by mouth | | | | | Activ | | (SINGULAIR) 10 MG | nightly. | | | | | e | | tablet | | | | | | | + + +-------+---------+------+------+-------+ | metoprolol | Take 50 mg by mouth | | | | | Activ | | (TOPROL-XL) 50 MG 24 | 2 (two) times daily. | | | | | e | | hr tablet | | | | | | | + + +-------+---------+------+------+-------+ | albuterol | Inhale 2 puffs into | | | | | Activ | | (PROVENTIL | the lungs every 4 | | | | | e | | HFA;VENTOLIN HFA) | (four) hours as | | | | | | | 108 (90 Base) | needed for Wheezing. | | | | | | | MCG/ACT inhaler | | | | | | | + + +-------+---------+------+------+-------+ | | Take by mouth. | | | | | Activ | | Saxagliptin-Metformi | | | | | | e | | n 5-500 MG TB24 | | | | | | | + + +-------+---------+------+------+-------+ | lisinopril | Take 20 mg by mouth | | | | | Activ | | (ZESTRIL) 20 MG | daily. | | | | | e | | tablet | | | | | | | + + +-------+---------+------+------+-------+ | insulin - MIX | Inject into the | | | | | Activ | | insulin aspart | skin 2 (two) times | | | | | e | | protamine-insulin | daily before meals. | | | | | | | aspart 70/30 | | | | | | | | (NOVOLOG 70/30) | | | | | | | | (70-30) 100 UNIT/ML | | | | | | | | injection | | | | | | | + + +-------+---------+------+------+-------+ | insulin glargine | Inject into the | | | | | Activ | | (LANTUS) 100 UNIT/ML | skin nightly. | | | | | e | | injection | | | | | | | + + +-------+---------+------+------+-------+ | Cholecalciferol | Take by mouth. | | | | | Activ | | 2000 units CAPS | | | | | | e | + + +-------+---------+------+------+-------+ | pantoprazole | Take 40 mg by mouth | | | | | Activ | | (PROTONIX) 40 MG | every morning before | | | | | e | | tablet | breakfast. | | | | | | + + +-------+---------+------+------+-------+ | Magnesium 400 MG | Take by mouth. | | | | | Activ | | CAPS | | | | | | e | + + +-------+---------+------+------+-------+ | atorvastatin | Take 20 mg by mouth | | | | | Activ | | (LIPITOR) 20 MG | nightly. | | | | | e | | tablet | | | | | | | + + +-------+---------+------+------+-------+ | aspirin 81 MG | Take 81 mg by mouth | | | | | Activ | | tablet | daily. | | | | | e | + + +-------+---------+------+------+-------+ | methocarbamol | Take 750 mg by mouth | | | | | Activ | | (ROBAXIN) 750 MG | 4 (four) times | | | | | e | | tablet | daily. | | | | | | + + +-------+---------+------+------+-------+ | fluticasone | 2 sprays by Each | | | | | Activ | | (VERAMYST) 27.5 | Nare route daily. | | | | | e | | MCG/SPRAY nasal | | | | | | | | spray | | | | | | | + + +-------+---------+------+------+-------+ | gabapentin | Take 100 mg by mouth | | | | | Activ | | (NEURONTIN) 100 MG | 3 (three) times | | | | | e | | capsule | daily. | | | | | | + + +-------+---------+------+------+-------+ Active Problems No known active problems Social History + +-------+ +--------+------+ | Tobacco [...] + +---------+ + | Alcohol Use | Drinks/We | oz/Week | Comments | | | ek | | | + + +---------+ + | Yes | | | | + + +---------+ + + + + | Sex Assigned at | Date Recorded | | | | + + + | Not on file | | + + + Last Filed Vital Signs + + + + | Vital Sign | Reading | Time Taken | + + + + | Blood Pressure | 168/78 | 01/30/2019 9:45 AM PDT | + + + + | Pulse | 86 | 01/30/2019 9:45 AM PDT | + + + + | Temperature | - | - | + + + + | Respiratory Rate | - | - | + + + + | Oxygen Saturation | 96% | 01/30/2019 9:45 AM PDT | + + + + | Inhaled Oxygen | - | - | | Concentration | | | + + + + | Weight | 99.8 kg (220 lb) | 01/30/2019 9:45 AM PDT | + + + + | Height | 157.5 cm (5' 2") | 01/30/2019 9:45 AM PDT | + + + + | Body Mass Index | 40.24 | 01/30/2019 9:45 AM PDT | + + + + Plan of Treatment + + + + + | Health Maintenance | Due Date | Last Done | Comments | + + + + + | Vaccine: | | | | | Dtap/Tdap/Td (1 - | 4 | | | | Tdap) | | | | + + + + + | Cervical Cancer | | | | | Screening (Pap) | 5 | | | + + + + + | Breast Cancer | | | | | Screening | 5 | | | | (Mammogram) | | | | + + + + + | Colon Cancer | | | | | Screening | 5 | | | | (Colonoscopy) | | | | + + + + + | Vaccine: Zoster (1 | | | | | of 2) | 5 | | | + + + + + | Vaccine: Influenza | | | | | (#1) | 9 | | | + + + + + Results Not on filefrom Last 3 Months Insurance +---------+--------+ +------+-------+ + | Payer | Benefi | Subscriber | Type | Phone | Address | | | t Plan | ID | | | | | | / | | | | | | | Group | | | | | +---------+--------+ +------+-------+ + | PREMERA | PREMER | [id number] | | | [address] [address] | | | A BLUE | | | | [place] | | | [place] | | | | [phone] | | | FED | | | | | | | PPO | | | | | +---------+--------+ +------+-------+ + + +--------+ +--------+ + + | Guarantor Name | Accoun | Relation to | Date | Phone | Billing Address | | | t Type | Patient | of | | | | | | | | | | + +--------+ +--------+ + + | INOCENCIA CAMRAA | Person | Self | [birth year] Home: | [id number] | | | al/Fam | | 1965 | [phone] [place] [id number] | | | albaro | | | [phone] | | + +--------+ +--------+ + +
--- OUTSIDE RECORDS SUMMARY | ~2019-09-09 | XMS | Encounter Summary ---
Demographics + + + | Address | [address] | | | [place] [address] | + + + | Home Phone | | + + + | Preferred Language | Unknown | + + + | Marital Status | | + + + | Taoist Affiliation | 1041 | + + + | Race | Unknown | + + + | Ethnic Group | Unknown | + + + Author + + + | Author | [facility] | | | and [place] | + + + | Organization | [facility] | | | and [...] Team Providers + +------+ + | Care Eligibility Examiner Name | Role | Phone | + +------+ + PCP | Unavailable | + +------+ + Encounter Details +--------+ + + + + | Date | Type | Department | Care Team | Description | +--------+ + + + + | 06/28/ | Hospital | [facility] | Conversion | | | 1994 - | Encounter | SYSTEM GENERIC IP | Transaction, | | | | | CONVERSION [address] | Provider Unknown | | | 07/02/ | | [address] [place], [place] | | | | 1994 | | [address] | | | | | | [phone] | | | +--------+ + + + [...]
--- OUTSIDE RECORDS SUMMARY | ~2019-09-09 | XMS | Encounter Summary ---
Demographics + + + | Address | [address] | | | [place] [address] | + + + | Home Phone | | + + + | Preferred Language | Unknown | + + + | Marital Status | | + + + | Sabianism Affiliation | 1041 | + + + | Race | Unknown | + + + | Ethnic Group | Unknown | + + + Author + + + | Author | [facility] | | | and [place] | + + + | Organization | [facility] | | [...] Team Providers + +------+ + | Care Hvac Instructor Name | Role | Phone | + +------+ + PCP | Unavailable | + +------+ + Encounter Details +--------+ + + + + | Date | Type | Department | Care Team | Description | +--------+ + + + + | 06/28/ | Hospital | [facility] | Conversion | | | 1994 - | Encounter | SYSTEM GENERIC IP | Transaction, | | | | | CONVERSION [address] | Provider Unknown | | | 07/02/ | | [address] [place], [place] | | | | 1994 | | [address] | | | | | | [phone] | | | +--------+ + + + [...]
--- OUTSIDE RECORDS SUMMARY | ~2019-09-09 | XMS | Encounter Summary ---
Demographics + + + | Address | [address] | | | [place] [address] | + + + | Home Phone | | + + + | Preferred Language | Unknown | + + + | Marital Status | | + + + | Taoist Affiliation | 1041 | + + + | Race | Unknown | + + + | Ethnic Group | Unknown | + + + Author + + + | Author | [facility] | | | and [place] | + + + | Organization | [facility] | | | [...] Team Providers + +------+ + | Care Cleaning Specialist Name | Role | Phone | [...] unspecified | MD Corbin | [address] | | | | | type | [address] | [place], | | | | | diabetes | [place] | [place] | | | | | mellitus | [place], [place] | [address] | | | | | with | [address] | Phone: | | | | | neurological | Phone: | [phone] | | | | | | [phone] | Fax: | | | | | manifestatio | Fax: | [phone] | | | | | ns, not | [phone] | | | | | | stated [...] + + + + Reason for Visit Diagnostic/Screening (Routine) +--------+--------+ [...] unspecified | MD [facility] | [address] | | | | | type | [address] | [place], | | | | | diabetes | [place] | [place] | | | | | mellitus | [place], [place] | [address] | | | | | with | [address] | Phone: | | | | | neurological | Phone: | [phone] | | | | | | [phone] | Fax: | | | | | manifestatio | Fax: | [phone] | | | | | ns, not | [phone] | | | | | | stated [...] + + | 06/18/ | Hospital | [facility] | Cornelio Edmond | DIABETES MELLITUS, | | 2019 | Encounter | [facility] | MD [facility] [address] | WITH PERIPHERAL | | | | MEDICINE [address] [place] | NEUROPATHY; Early | | | | [address] [place], | [place] [address] | satiety; | | | | [place] [address] | [phone] | Non-intractable | | | | [phone] | | cyclical vomiting | | | | | | with nausea | +--------+ + + + + Social [...] | diclofenac | | | 0 | //20 | | | (VOLTAREN) 50 mg EC [...] | nitrofurantoin | | | 0 | 05/04/20 | | | (MACROBID) 100 mg | [...] | Procedure Note | + + | Ward Honeycutt Results In - 06/18/2019 1:06 PM PDT [...] cyclical vomiting with nausea | + + documented in this encounter Administered Medications + +--------+ + +------+------+ | Medication Order | MAR | Action | Dose | Rate | Site | | | Action | Date | | | | + +--------+ + +------+------+ | technetium TC-99M sulfur | Given | 06/18/20 | 1 | | | | colloid solution 20 millicurie | | 19 8:27 | millicur | | | | 20 millicurie, Intravenous, ONCE | | AM PDT | ie | | | | PRN, Other, Starting [facility] 06/18/19 | | | | | | | at 0827, For 1 dose, Nuclear | | | | | | | Medicine | | | | | | + +--------+ + +------+------+ +---+---+ | | | +---+---+ documented in this encounter"
--- OUTSIDE RECORDS SUMMARY | ~2019-09-09 | XMS | Encounter Summary ---
Demographics + + + | Address | [address] | | | [place] [address] | + + + | Home Phone | | + + + | Preferred Language | Unknown | + + + | Marital Status | | + + + | Methodist Affiliation | 1041 | + + + | Race | Unknown | + + + | Ethnic Group | Unknown | + + + Author + + + | Author | [facility] | | | and [place] | + + + | Organization | [facility] | | | [...] | + + +---------+ + | Manny Juan | ECON | N | | | | | N, | | + + +---------+ + Care Team Providers + +------+ + | Care Reactor Fueling Supervisor Name | Role | Phone | + +------+ + PCP | Unavailable | + +------+ + Encounter Details +--------+ + + + + | Date | Type | Department | Care Team | Description | +--------+ + + + + | 06/12/ | Abstract | [place] [facility] | [facility] | | | 2011 | | Conversion Location | SR | | | | | [phone] | | | +--------+ + + + [...] + + + | Blood Pressure | - | - | | + + + + + | Pulse | - | - | | + + + + + | Temperature | - | - | | + + + + + | Respiratory Rate | - | - | | + + + + + | Oxygen Saturation | - | - | | + + + + + | Inhaled Oxygen | - | - | | | Concentration | | | | + + + + + | Weight | 81.6 kg (180 lb) | 02/18/2012 12:00 AM | | | | | PDT | | + + + + + | Height | 157.5 cm (5' 2") | 02/18/2012 12:00 AM | | | | | PDT | | + + + + + | Body Mass Index | 32.92 | 02/18/2012 12:00 AM | | | | | PDT | | + + + + + documented in this encounter Plan of Treatment Not on filedocumented as of this encounter Visit Diagnoses Not on filedocumented in this encounter
--- OUTSIDE RECORDS SUMMARY | ~2019-09-09 | XMS | Encounter Summary ---
Demographics + + + | Address | [address] | | | [place] [address] | + + + | Home Phone | | + + + | Preferred Language | Unknown | + + + | Marital Status | | + + + | Scientology Affiliation | 1041 | + + + | Race | Unknown | + + + | Ethnic Group | Unknown | + + + Author + + + | Author | [facility] | | | and [place] | + + + | Organization | [facility] | | | and [...] Team Providers + +------+ + | Care Sales Effectiveness Manager Name | Role | Phone | + +------+ + PCP | Unavailable | + +------+ + Encounter Details +--------+ + + + + | Date | Type | Department | Care Team | Description | +--------+ + + + + | 07/18/ | Hospital | [facility] | Conversion | | | 1994 - | Encounter | SYSTEM GENERIC IP | Transaction, | | | | | CONVERSION [address] | Provider Unknown | | | 07/21/ | | [address] [place], [place] | | | | 1994 | | [address] | | | | | | [phone] | | | +--------+ + + + [...]
--- OUTSIDE RECORDS SUMMARY | ~2019-09-09 | XMS | Encounter Summary ---
Demographics + + + | Address | [address] | | | [place] [address] | + + + | Home Phone | | + + + | Preferred Language | Unknown | + + + | Marital Status | | + + + | Islam Affiliation | 1041 | + + + | Race | Unknown | + + + | Ethnic Group | Unknown | + + + Author + + + | Author | [facility] | | | and [place] | + + + | Organization | [facility] | | | and [...] Team Providers + +------+ + | Care Cricket Coach Name | Role | Phone | + +------+ + | Unknown, Practitioner | PCP | | + +------+ + Encounter Details +--------+ + + + + | Date | Type | Department | Care Team | Description | +--------+ + + + + | 11/11/ | Abstract | [facility] | Robbin Gaona MD | | | 2018 | | GASTROENTEROLOGY | [address], [place] | | | | | [address] [place] | [address] [place], [place] | | | | | [address] [place], [place] | [address] | | | | | [address] | | | | | | [phone] | | | +--------+ + + + [...] + + + + | Weight | 95.3 kg (210 lb) | 11/11/2017 9:38 AM | | | | | PST | | + + + + + | Height | 157.5 cm (5' 2") | 11/11/2017 9:38 AM | | | | | PST | | + + + + + | Body Mass Index | 38.41 | 11/11/2017 9:38 AM | | | | | PST [...] | + +--------+ + + + | EXTERNAL LAB: BUN | Routin | 10/29/2017 | | Results for this | | | e | | | procedure are in the | | | | | | results section. | + +--------+ + + + | EXTERNAL LAB: | Routin | 10/29/2017 | | Results for this | | GLUCOSE | e | | | procedure are in the | | | | | | results section. | + +--------+ + + + | EXTERNAL LAB: ALT | Routin | 10/29/2017 | | Results for this | | | e | | | procedure are in the | | | | | | results section. | + +--------+ + + + | EXTERNAL LAB: AST | Routin | 10/29/2017 | | Results for this | | | e | | | procedure are in the | | | | | | results section. | + +--------+ + + + | EXTERNAL LAB: | Routin | 10/29/2017 | | Results for this | | ALKALINE PHOSPHATASE | e | | | procedure are in the | | | | | | results section. | + +--------+ + + + | EXTERNAL LAB: | Routin | 10/29/2017 | | Results for this | | BILIRUBIN, TOTAL | e | | | procedure are in the | | | | | | results section. | + +--------+ + + + | EXTERNAL LAB: | Routin | 10/29/2017 | | Results for this | | ALBUMIN | e | | | procedure are in the | | | | | | results section. | + +--------+ + + + | EXTERNAL LAB: | Routin | 10/29/2017 | | Results for this | | PROTEIN, TOTAL | e | | | procedure are in the | | | | | | results section. | + +--------+ + + + | EXTERNAL LAB: | Routin | 10/29/2017 | | Results for this | | CALCIUM | e | | | procedure are in the | | | | | | results section. | + +--------+ + + + | EXTERNAL LAB: CARBON | Routin | 10/29/2017 | | Results for this | | DIOXIDE | e | | | procedure are in the | | | | | | results section. | + +--------+ + + + | EXTERNAL LAB: | Routin | 10/29/2017 | | Results for this | | CHLORIDE | e | | | procedure are in the | | | | | | results section. | + +--------+ + + + | EXTERNAL LAB: | Routin | 10/29/2017 | | Results for this | | POTASSIUM | e | | | procedure are in the | | | | | | results section. | + +--------+ + + + | EXTERNAL LAB: SODIUM | Routin | 10/29/2017 | | Results for this | | | e | | | procedure are in the | | | | | | results section. | + +--------+ + + + | EXTERNAL LAB: | Routin | 10/29/2017 | | Results for this | | URINALYSIS | e | | | procedure are in the | | | | | | results section. | + +--------+ + + + | EXTERNAL LAB: CBC | Routin | 10/29/2017 | | Results for this | | | e | | | procedure are in the | | | | | | results section. | + +--------+ + + + | EXTERNAL LAB: EGFR | Routin | 10/29/2017 | | Results for this | | | e | | | procedure are in the | | | | | | results section. | + +--------+ + + + | EXTERNAL LAB: | Routin | 10/29/2017 | | Results for this | | CREATININE | e | | | procedure are in the | | | | | | results section. | + +--------+ + + + | URINALYSIS, REFLEX | Routin | 10/29/2017 | | Results for this | | MICROSCOPIC AND/OR | e | | | procedure are in the | | CULTURE | | | | results section. | + +--------+ + + + | CBC WITH | Routin | 10/29/2017 | | Results for this | | DIFFERENTIAL | e | | | procedure are in the | | | | | | results section. | + +--------+ + + + | HEMOGLOBIN A1C | Routin | 10/29/2017 | | Results for this | | | e | | | procedure are in the | | | | | | results section. | + +--------+ + + + | COMPREHENSIVE | Routin | 10/29/2017 | | Results for this | | METABOLIC PANEL | e | | | procedure are in the | | | | | | results section. | + +--------+ + + + documented in this encounter Results Urinalysis, Reflex Microscopic and/or Culture (10/29/2017) + + + + + + | Component | Value | Ref Range | Performed | Pathologist | | | | | At | Signature | + + + + + + | Color | Yellow | | | | + + + + + + | Clarity | Clear | | | | + + + + + + | Nitrite, | Negative | Negative | | | | Urine | | | | | + + + + + + | Urobilinoge | 1 mg/dL | < 0.2 mg/dL, | | | | n, Urine | | 1.0 mg/dL, 4.0 | | | | | | mg/dL, Normal, | | | | | | 1.0 E.U./dL, | | | | | | 0.2 E.U./dL, | | | | | | 0.2 mg/dL, | | | | | | Negative, 1 | | | | | | mg/dL, <2.0 | | | | | | mg/dL | | | + + + + + + | Bilirubin, | 1+ (A) | Negative | | | | Urine | | | | | + + + + + + + + | Specimen | + + | Urine | + + CBC with Differential (10/29/2017) + +-------+ + + + | Component | Value | Ref Range | Performed | Pathologist | | | | | At | Signature | + +-------+ + + + | MCH | 29.5 | 26.0 - 33.0 pg | | | + +-------+ + + + | MCHC | 33.7 | 30.0 - 36.0 % | | | + +-------+ + + + | % Basophils | 0.5 | 0.0 - 2.0 % | | | + +-------+ + + + + + | Specimen | + + | Blood | + + Comprehensive Metabolic Panel (10/29/2017) + +-------+ + + + | Component | Value | Ref Range | Performed | Pathologist | | | | | At | Signature | + +-------+ + + + | Bun/Creatin | 20.9 | 6 - 28.5 Ratio | | | | ine | | | | | + +-------+ + + + | Anion Gap | 17 | 9 - 18 mmol/L | | | + +-------+ + + + + + | Specimen | + + | Blood | + + Hemoglobin A1C (10/29/2017) + + + + + + | Component | Value | Ref Range | Performed | Pathologist | | | | | At | Signature | + + + + + + | Hemoglobin | 8.0Comment: Estimated | % | EXTERNAL | | | A1c, | Average Glucose 183 | | LAB | | | external | mg/dL | | | | + + + + + + + + | Specimen | + + | Blood | + + + +---------+ + + | Performing | Address | City/State/Zipcode | Phone Number | | Organization | | | | + +---------+ + + | EXTERNAL LAB | | | | + +---------+ + + External Lab: ELICEO (10/29/2017) + +-------+ + + + | Component | Value | Ref Range | Performed | Pathologist | | | | | At | Signature | + +-------+ + + + | BUN, | 24 | 8 - 25 | EXTERNAL | | | External | | | LAB | | + +-------+ + + + + +---------+ + + | Performing | Address | City/State/Zipcode | Phone Number | | Organization | | | | + +---------+ + + | EXTERNAL LAB | | | | + +---------+ + + External Lab: Glucose (10/29/2017) + +---------+ + + + | Component | Value | Ref Range | Performed | Pathologist | | | | | At | Signature | + +---------+ + + + | Glucose, | 113 (A) | 65 - 99 | EXTERNAL | | | External | | | LAB | | + +---------+ + + + + +---------+ + + | Performing | Address | City/State/Zipcode | Phone Number | | Organization | | | | + +---------+ + + | EXTERNAL LAB | | | | + +---------+ + + External Lab: ALT (10/29/2017) + +-------+ + + + | Component | Value | Ref Range | Performed | Pathologist | | | | | At | Signature | + +-------+ + + + | ALT, | 22 | 0 - 33 | EXTERNAL | | | External | | | LAB | | + +-------+ + + + + +---------+ + + | Performing | Address | City/State/Zipcode | Phone Number | | Organization | | | | + +---------+ + + | EXTERNAL LAB | | | | + +---------+ + + External Lab: AST (10/29/2017) + +-------+ + + + | Component | Value | Ref Range | Performed | Pathologist | | | | | At | Signature | + +-------+ + + + | AST, | 23 | 0 - 32 | EXTERNAL | | | External | | | LAB | | + +-------+ + + + + +---------+ + + | Performing | Address | City/State/Zipcode | Phone Number | | Organization | | | | + +---------+ + + | EXTERNAL LAB | | | | + +---------+ + + External Lab: Alkaline Phosphatase (10/29/2017) + +---------+ + + + | Component | Value | Ref Range | Performed | Pathologist | | | | | At | Signature | + +---------+ + + + | ALP, | 107 (A) | 35 - 104 | EXTERNAL | | | External | | | LAB | | + +---------+ + + + + +---------+ + + | Performing | Address | City/State/Zipcode | Phone Number | | Organization | | | | + +---------+ + + | EXTERNAL LAB | | | | + +---------+ + + External Lab: Bilirubin, Total (10/29/2017) + +-------+ + + + | Component | Value | Ref Range | Performed | Pathologist | | | | | At | Signature | + +-------+ + + + | Bilirubin, | 0.2 | 0.1 - 1.2 | EXTERNAL | | | Total, | | | LAB | | | External | | | | | + +-------+ + + + + +---------+ + + | Performing | Address | City/State/Zipcode | Phone Number | | Organization | | | | + +---------+ + + | EXTERNAL LAB | | | | + +---------+ + + External Lab: Albumin (10/29/2017) + +-------+ + + + | Component | Value | Ref Range | Performed | Pathologist | | | | | At | Signature | + +-------+ + + + | Albumin, | 3.7 | 3.5 - 5 | EXTERNAL | | | External | | | LAB | | + +-------+ + + + + +---------+ + + | Performing | Address | City/State/Zipcode | Phone Number | | Organization | | | | + +---------+ + + | EXTERNAL LAB | | | | + +---------+ + + External Lab: Protein, Total (10/29/2017) + +-------+ + + + | Component | Value | Ref Range | Performed | Pathologist | | | | | At | Signature | + +-------+ + + + | Protein, | 7.0 | 6.2 - 8 | EXTERNAL | | | Total, | | | LAB | | | External | | | | | + +-------+ + + + + +---------+ + + | Performing | Address | City/State/Zipcode | Phone Number | | Organization | | | | + +---------+ + + | EXTERNAL LAB | | | | + +---------+ + + External Lab: Calcium (10/29/2017) + +-------+ + + + | Component | Value | Ref Range | Performed | Pathologist | | | | | At | Signature | + +-------+ + + + | Calcium, | 9.6 | 8.5 - 10 | EXTERNAL | | | External | | | LAB | | + +-------+ + + + + +---------+ + + | Performing | Address | City/State/Zipcode | Phone Number | | Organization | | | | + +---------+ + + | EXTERNAL LAB | | | | + +---------+ + + External Lab: Carbon Dioxide (10/29/2017) + +-------+ + + + | Component | Value | Ref Range | Performed | Pathologist | | | | | At | Signature | + +-------+ + + + | Carbon | 24 | 22 - 29 | EXTERNAL | | | Dioxide, | | | LAB | | | External | | | | | + +-------+ + + + + +---------+ + + | Performing | Address | City/State/Zipcode | Phone Number | | Organization | | | | + +---------+ + + | EXTERNAL LAB | | | | + +---------+ + + External Lab: Chloride (10/29/2017) + +-------+ + + + | Component | Value | Ref Range | Performed | Pathologist | | | | | At | Signature | + +-------+ + + + | Chloride, | 101 | 97 - 107 | EXTERNAL | | | External | | | LAB | | + +-------+ + + + + +---------+ + + | Performing | Address | City/State/Zipcode | Phone Number | | Organization | | | | + +---------+ + + | EXTERNAL LAB | | | | + +---------+ + + External Lab: Potassium (10/29/2017) + +-------+ + + + | Component | Value | Ref Range | Performed | Pathologist | | | | | At | Signature | + +-------+ + + + | Potassium, | 5.0 | 3.5 - 5.1 | EXTERNAL | | | External | | | LAB | | + +-------+ + + + + +---------+ + + | Performing | Address | City/State/Zipcode | Phone Number | | Organization | | | | + +---------+ + + | EXTERNAL LAB | | | | + +---------+ + + External Lab: Sodium (10/29/2017) + +-------+ + + + | Component | Value | Ref Range | Performed | Pathologist | | | | | At | Signature | + +-------+ + + + | Sodium, | 142 | 135 - 143 | EXTERNAL | | | External | | | LAB | | + +-------+ + + + + +---------+ + + | Performing | Address | City/State/Zipcode | Phone Number | | Organization | | | | + +---------+ + + | EXTERNAL LAB | | | | + +---------+ + + External Lab: Urinalysis (10/29/2017) + + + + + + | Component | Value | Ref Range | Performed | Pathologist | | | | | At | Signature | + + + + + + | UA Blood, | Negative | | EXTERNAL | | | External | | | LAB | | + + + + + + | UA Glucose, | Negative | 0 - 0 | EXTERNAL | | | External | | | LAB | | + + + + + + | UA Ketones, | 1+ (A) | 0 - 0 | EXTERNAL | | | External | | | LAB | | + + + + + + | UA Ph, | 5 | 5 - 9 | EXTERNAL | | | External | | | LAB | | + + + + + + | UA | 100 (A) | 0 - 0 | EXTERNAL | | | Proteins, | | | LAB | | | External | | | | | + + + + + + | UA RBC, | 2 | 0 - 4 | EXTERNAL | | | External | | | LAB | | + + + + + + | UA Specific | 1.024 | 1.005 - 1.03 | EXTERNAL | | | [place], | | | LAB | | | External | | | | | + + + + + + | UA | Negative | 0 - 0 | EXTERNAL | | | Leukocyte | | | LAB | | | Esterase, | | | | | | External | | | | | + + + + + + + +---------+ + + | Performing | Address | City/State/Zipcode | Phone Number | | Organization | | | | + +---------+ + + | EXTERNAL LAB | | | | + +---------+ + + External Lab: CBC (10/29/2017) + + + + + + | Component | Value | Ref Range | Performed | Pathologist | | | | | At | Signature | + + + + + + | WBC, | 9.51 | 4 - 11 | EXTERNAL | | | External | | | LAB | | + + + + + + | HGB, | 11.7 (A) | 12 - 16 | EXTERNAL | | | External | | | LAB | | + + + + + + | HCT, | 34.8 (A) | 35 - 45 | EXTERNAL | | | External | | | LAB | | + + + + + + | PLT, | 361.0 | 140 - 440 | EXTERNAL | | | External | | | LAB | | + + + + + + | Neutrophils | 60.10 | 37 - 67 | EXTERNAL | | | %, | | | LAB | | | External | | | | | + + + + + + | Lymphocytes | 30.10 | 24 - 44 | EXTERNAL | | | %, | | | LAB | | | External | | | | | + + + + + + | Monocytes | 4.8 (A) | 5 - 12 | EXTERNAL | | | %, External | | | LAB | | + + + + + + | Eosinophils | 4.50 | 0 - 5 | EXTERNAL | | | %, | | | LAB | | | External | | | | | + + + + + + | Neutrophils | 5.72 | 1.3 - 7.3 | EXTERNAL | | | , Absolute, | | | LAB | | | External | | | | | + + + + + + | Lymphocytes | 2.86 | 0.8 - 3.4 | EXTERNAL | | | , Absolute, | | | LAB | | | External | | | | | + + + + + + | Monocytes, | 0.46 | 0.2 - 1 | EXTERNAL | | | Absolute, | | | LAB | | | External | | | | | + + + + + + | Eosinophils | 0.43 | 0 - 0.8 | EXTERNAL | | | , Absolute | | | LAB | | + + + + + + | Basophils, | 0.05 | 0 - 0.1 | EXTERNAL | | | Absolute | | | LAB | | + + + + + + | RBC, | 3.97 | 3.8 - 5.2 | EXTERNAL | | | External | | | LAB | | + + + + + + | MCV, | 88 | 81 - 99 | EXTERNAL | | | External | | | LAB | | + + + + + + | RDW, | 12.9 | 10.5 - 15 | EXTERNAL | | | External | | | LAB | | + + + + + + + +---------+ + + | Performing | Address | City/State/Zipcode | Phone Number | | Organization | | | | + +---------+ + + | EXTERNAL LAB | | | | + +---------+ + + External Lab: eGFR (10/29/2017) + +--------+ + + + | Component | Value | Ref Range | Performed | Pathologist | | | | | At | Signature | + +--------+ + + + | eGFR, | 50 (A) | 60 99,999 | EXTERNAL | | | External | | | LAB | | + +--------+ + + + + + | Specimen | + + | Blood | + + + +---------+ + + | Performing | Address | City/State/Zipcode | Phone Number | | Organization | | | | + +---------+ + + | EXTERNAL LAB | | | | + +---------+ + + External Lab: Creatinine (10/29/2017) + + + + + + | Component | Value | Ref Range | Performed | Pathologist | | | | | At | Signature | + + + + + + | Creatinine, | 1.15 (A) | 0.5 - 1 | EXTERNAL | | | External | | | LAB | | + + + + + + + + | Specimen | + + | Blood | + + + +---------+ + + | Performing | Address | City/State/Zipcode | Phone Number | | Organization | | | | + +---------+ + + | EXTERNAL LAB | | | | + +---------+ + + documented in this encounter Visit Diagnoses Not on filedocumented in this encounter
--- OUTSIDE RECORDS SUMMARY | ~2019-09-09 | XMS | Encounter Summary ---
Demographics + + + | Address | [address] | | | [place] [address] | + + + | Home Phone | | + + + | Preferred Language | Unknown | + + + | Marital Status | | + + + | Muslim Affiliation | 1041 | + + + | Race | Unknown | + + + | Ethnic Group | Unknown | + + + Author + + + | Author | [facility] | | | and [place] | + + + | Organization | [facility] | | | [...] Team Providers + +------+ + | Care Provider Relations Advocate Name | Role | Phone | + +------+ + | Kayla Núñez PA-C | PCP | | + +------+ + Reason for Visit Auth/Cert +--------+--------+ + + + + | Status | Reason | Specialty | Diagnoses / | Referred By | Referred To | | | | | Procedures | Contact | Contact | +--------+--------+ + + + + | | | | Diagnoses | | Brook, | | | | | Irritable | | Cornelio Corbin, | | | | | bowel | | MD [address] | | | | | syndrome | | [address] | | | | | with | | [place], | | | | | constipation | | [place] [address] | | | | | Type II or | | Phone: | | | | | unspecified | | [phone] | | | | | type | | Fax: | | | | | diabetes | | [phone] | | | | | mellitus | | | | | | | with | | | | | | | neurological | | | | | | | | | | | | | | manifestatio | | | | | | | ns, not | | | | | | | stated [...] | | | | | | | Sedative | | | | | | | dependence | | | | | | | (HCC) | | | | | | | Procedures | | | | | | | CA | | | | | | | ESOPHAGOGAST | | | | | | | RODUODENOSCO | | | | | | | PY TRANSORAL | | | | | | | DIAGNOSTIC | | | | | | | CA EGD | | | | | | | TRANSORAL | | | | | | | BIOPSY | | | | | | | SINGLE/MULTI | | | | | | | PLE CA | | | | | | | COLONOSCOPY | | | | | | | FLX DX | | | | | | | W/COLLJ SPEC | | | | | | | WHEN PFRMD | | | | | | | CA | | | | | | | COLONOSCOPY | | | | | | | W/BIOPSY | | | | | | | SINGLE/MULTI | | | | | | | PLE CA | | | | | | | COLSC FLX | | | | | | | W/RMVL OF | | | | | | | TUMOR POLYP | | | | | | | LESION SNARE | | | | | | | TQ CA | | | | | | | ANESTHESIA | | | | | | | COMBINED | | | | | | | UPPER&LOWER | | | | | | | GI | | | | | | | ENDOSCOPIC | | | | | | | PX EGD | | | | | | | COLONOSCOPY | | | +--------+--------+ + + + + Encounter Details +--------+---------+ + + + | Date | Type | Department | Care Team | Description | +--------+---------+ + + + | 07/07/ | Surgery | [facility] | Cornelio Doe | EGD | | 2019 | | [facility] | MD Corbin [address] | | | | | [address] | [address] [place] | | | | | [place] | [place] [address] | | | | | [address] | [phone] | | | | | [phone] | | | +--------+---------+ + + + Social History [...] + + documented as of this encounter Discharge Instructions Instructions Luzma Gao RN - 07/07/2019 Tips to Control Acid Reflux To control acid reflux, you ll need to make some basic diet and lifestyle changes. The si mple steps outlined below may be all you ll need to ease discomfort. Watch what you eat Avoid fatty foods and spicy foods. Eat fewer acidic foods, such as citrus and tomato-based foods. These can increase sympto ms. Limit drinking alcohol, caffeine, and fizzy beverages. All increase acid reflux. Try limiting chocolate, peppermint, and spearmint.These can worsen acid reflux in some people. Watch when you eat Avoid lying down [id number] after eating. Do not snack before going to bed. Raise your head Raising your head and upper body by 4 to 6 incheshelps limit reflux when you re lying d own. Put blocks under the head of your bed frame to raise it. Other changes Lose weight, if you need to Don t exercise near bedtime Avoid tight-fitting clothes Limit aspirin and ibuprofen Stop smoking Date Last Reviewed: 03/30/201619998474-9734 [employer]. [address] [place] [address], [place] [address]. All righ ts reserved. This information is not intended as a substitute for professional medical care. Always follow your healthcare professional's instructions. Diverticulosis Diverticulosismeans that small pouches have formed in the wall ofyourlarge intestine (colon). Most often, this problem causes no symptoms and is common as people age. But the po uches in the colon are at risk of becoming infected. When this happens, the condition is vishnu led diverticulitis. Although most people with diverticulosis never develop diverticulitis, i t is still not uncommon. Rectal bleeding can also occur and in less common situations, a typ e of colon inflammation called colitis. While most people don'thave symptoms, some people with diverticulosis mayhave: Abdominal cramps and pain Bloating Constipation Change in bowel habits Causes The exact cause of diverticulosis (and diverticulitis) has not been proved, buta few thin gs are associated with the condition: Low-fiber diet Constipation Lack of exercise Your healthcare provider will talk with you about how to manage your condition. Diet change s may be all that are needed to help control diverticulosis and prevent progression to diver ticulitis. If you develop diverticulitis, you will likely needother treatments. Home care You may be told to take fiber supplements daily. Fiber adds bulk to the stool so that it pa sses through the colon more easily. Stool softeners may also be recommended. You may also be given medicines for pain relief. Be sure to take all medicines as directed. In the past, people were told to avoid corn, nuts, and seeds. This is no longer necessary. Follow these guidelines when caring for yourself at home: Eat unprocessed foods that are high in fiber. Whole-grains, fruits, and vegetables are g ood choices. Drink 6 to 8 glasses of water every day unless your healthcare provider has you limit ho w muchfluid you should have. Watch for changes in your bowel movements. Tell your provider if you notice any changes. Begin an exercise program. Ask your provider how to get started. Generally, walking is t he best. Get plenty of rest and sleep. Follow-up care Follow up with your healthcare provider, oras advised. Regular visits may be needed to ch mau on your health. Sometimes special procedures such as colonoscopy, are needed after an ep isode of diverticulitis or blooding. Be sure to keep all your appointments. If a stool sample was taken, or cultures were done, you should be told if they are positive , or if your treatment needs to be changed. You can call as directed for the results. If X-rays were done,a radiologist will look at them. You will be told if there is a slater e in your treatment. If antibiotics were prescribed, be sure to finish them all. When to seek medical advice Call your healthcare provider right awayif any of these occur: Fever of 100.4F (38C) or higher, or as directed by your healthcare provider Severe cramps in the lower left side of the abdomen or pain that is gettingworse Tenderness in the lower left side of the abdomen or worsening pain throughout the abdome n Diarrhea or constipation that doesn't get better within 24 hours Nausea and vomiting Bleeding from the rectum Call 911 Call 911 if any of the following occur: Trouble breathing Confusion Very drowsy or trouble awakening Fainting or loss of consciousness Rapid heart rate Chest pain Date Last Reviewed: 02/28/201819991197-5384 [employer]. [address] [place] [address]. All righ ts reserved. This information is not intended as a substitute for professional medical care. Always follow your healthcare professional's instructions. documented in this encounter Medications at Time of Discharge [...] ULTRAFINE III | | | 0 | 05/14/20 | | | SHORT PEN 31G X [...] Continuous Blood | | | 0 | //20 | | | Gluc Sensor | | [...] capsule by | 30 | 4 | 07/07/20 | | | (LINZESS) 145 mcg | mouth every morning | capsule | | 19 | | | capsuleIndications: | (before breakfast). | [...] | nitrofurantoin | | | 0 | 08//20 | | | (MACROBID) 100 mg | [...] uncontrolled(250.60) | | | | | | ([facility]) Early | | | | | | satiety | | | | | | Non-intractable | | | | | | cyclical vomiting | | | | | | with nausea | | | | | | Sedative dependence | | | | | | ([facility]) | | + +--------+ + + [...] uncontrolled(250.60) | | | | | | ([facility]) Early | | | | | | satiety | | | | | | Non-intractable | | | | | | cyclical vomiting | | | | | | with nausea | | | | | | Sedative dependence | | | | | | ([facility]) | | + +--------+ + + [...] + + documented in this encounter Results POC Glucose (07/07/2019 8:10 AM PDT) + +---------+ + + + | Component | Value | Ref Range | Performed | Pathologist | | | | | At | Signature | + +---------+ + + + | Glucose, | 125 (H) | 70 - 109 mg/dL | [facility] | | | POC | | | [facility] | | | | | | [...] + + | [facility] | [address] | [place] | [phone] | | [facility] | | [address] | | | - LABORATORY | | | | + + + + + EGD (07/07/2019 8:07 AM PDT) + + | Specimen | + + | | + + + + ----+ | Narrative | Performed At | + + ----+ | | [facility] | | GastroenterologyPatient Name: Inocencia ChavezPatsy Date: 07/07/2019 | [facility] | | 8:07 AMMRN: [id number] #: [id number] of : | | | 1965Admit Type: AmbulatoryAge: 53Room: Endo Room 2Gender: | | | FemaleNote Status: FinalizedAttending MD: CORNELIO DOE , | | | MDProcedure: Upper GI endoscopyIndications: | | | Dysphagia, HeartburnProviders: CORNELIO DOE MD, | | | Celeste Paez RN, Shyla Baker | | | LAWRENCE Razo, Kayla Naranjo, Network Announcer, Chi | | | Obie TechnicianReferring MD: [...] of esophagus. | | | Biopsied. - [place]-colored mucosa classified as Demarco's stage | | | C0-M1 per [place] criteria. Biopsied. - Z-line, 37 cm from [...] AMScope In: 8:22:49 AMScope Out: 8:32:39 AM [facility] | | | [facility], [address] [place] [address] | | | [phone] | | | - Normal duodenal bulb [...] |Scope Out: 8:32:39 AM | | | [facility], [address] [place] [address] | | | [address] | | + + ----+ + +---------+ [...] 07/07/2019 | [facility] | | 7:56 AMMRN: [id number] #: [id number] of : | | | 1965Admit Type: AmbulatoryAge: 53Room: Endo Room 2Gender: | | | FemaleNote Status: FinalizedAttending MD: CORNELIO DOE , | | | MDProcedure: ColonoscopyIndications: Screening | | | for colorectal malignant neoplasm, Incidental | | | constipation notedProviders: CORNELIO DOE MD, | | | Celeste Paez RN, Shyla Baker | | | LAWRENCE Razo, Kayla Naranjo, Network Announcer, Chi | | | Obie TechnicianReferring MD: [...] | preparation was evaluated using the BBPS ([place] Bowel | | | Preparation Scale) with [...] | | 8:34:42 AMScope Out: 8:47:10 AM [facility] | | | [place], [address] [place] [address] | | | - No specimens collected. [...] |Scope Out: 8:47:10 AM | | | [facility], [address] [place] [address] | | | [address] | | + + -+ + +---------+ + + | Performing | Address | City/State/[facility] Hospitalcode | Phone Number | | Organization | [...] | | metaplasia, negative for definite dysplasia. JVR:[facility]:C2NR | | | GROSS DESCRIPTION: Three specimens [...] component was | | | performed by [facility], [address] [place] [address] | | | (Life Insurance Sales Agent: Anu Shukla MD; CLIA# [id number]). Professional | | | [facility] | | | [address] | | | [address] (Life Insurance Sales Agent: Zackery Rubi M.D.). Diagnostician: | | | Zackery Rubi MD Pathologist Electronically Signed 07/08/2019 | | | | | + + + + +---------+ + + | Performing | Address | City/State/Zipcode | Phone Number | | Organization | | | | + +---------+ + + | [facility] | | | | | [facility] | | | | + +---------+ + + documented in this encounter Visit Diagnoses + + | Diagnosis | + + | Irritable bowel syndrome with constipation Irritable bowel syndrome | + + | Type II or unspecified type diabetes mellitus with neurological manifestations, not | | stated as uncontrolled(250.60) ([facility]) Type II or unspecified type diabetes mellitus with | | neurological manifestations, not stated as uncontrolled | + + | Early satiety | + + | Non-intractable cyclical vomiting with nausea | + + | Sedative dependence ([facility]) Sedative, hypnotic or anxiolytic dependence, unspecified | + + documented in this encounter Admitting Diagnoses + + | Diagnosis | + + | Type II or unspecified type diabetes mellitus with neurological manifestations, not | | stated as uncontrolled(250.60) ([facility]) Type II or unspecified type diabetes mellitus with | | neurological manifestations, not stated as uncontrolled | + + | Irritable bowel syndrome with constipation Irritable bowel syndrome | + + | Early satiety | + + | Non-intractable cyclical vomiting with nausea | + + | Sedative dependence (HCC) Sedative, hypnotic or anxiolytic dependence, unspecified | + + documented in this encounter Administered Medications + +--------+---------+------+------+------+ | Medication Order | MAR | Action | Dose | Rate | Site | | | Action | Date | | | | + +--------+---------+------+------+------+ + +---+ | albuterol-ipratropium 2.5-0.5 | | | mg/3 mL nebulizer solution 3 mL | | | 3 mL, Nebulization, ONCE PRN, | | | Wheezing, Shortness of Breath, | | | Starting 07/07/19 at 0906, For | | | 1 dose, Recovery/Phase I | | + +---+ | | | + +---+ | dextrose 50% injection 12.5-25 | | | g 12.5-25 g, Intravenous, EVERY | | | 15 MIN PRN, Low Blood Sugar, Give | | | 12.5g (25 mL) IV if blood | | | glucose 50-69 mg/dL. Give 25g | | | (50 mL) IV if blood glucose < 50, | | | Starting 07/07/19 at 0730, | | | Repeat in 15 min if blood glucose | | | remains < 70 mg/dL. Repeat | | | blood glucose in 30 min once | | | blood glucose > 70., Pre-op | | + +---+ | | | + +---+ | dextrose 50% injection 12.5-25 | | | g 12.5-25 g, Intravenous, EVERY | | | 15 MIN PRN, Low Blood Sugar, For | | | hypoglycemia. Give 12.5g (25ml) | | | IV if blood glucose 50-69 | | | mg/dL. Give 25g (50ml) IV if | | | blood glucose < 50, Starting Tue | | | 07/07/19 at 0906, Give over 2 min. | | | Repeat in 15 min if blood | | | glucose remains < 70 mg/dL. | | | Repeat blood glucose in 30 min | | | once blood glucose > 70., | | | Recovery/Phase I | | + +---+ | | | + +---+ + +---------+ +--------+-------+---+ | lactated ringers (LR) infusion | New Bag | 07/07/20 | 1,000 | 100 | | | at 10-100 mL/hr, Intravenous, | | 19 8:11 | mLs | mL/hr | | | CONTINUOUS, Starting 07/07/19 | | AM PDT | | | | | at 0800, Use this instead of NS | | | | | | | unless patient is on dialysis., | | | | | | | Pre-op | | | | | | + +---------+ +--------+-------+---+ +---------+ +---+---+---+ | New Bag | 07/07/20 | | | | | | 19 7:50 | | | | | | AM PDT | | | | +---------+ +---+---+---+ + +---+ | | | + +---+ | lactated ringers (LR) infusion | | | at 100 mL/hr, Intravenous, | | | CONTINUOUS, Starting 07/07/19 | | | at 0930, Pre-op | | + +---+ | | | + +---+ | ondansetron (ZOFRAN) injection | | | 4 mg 4 mg, Intravenous, ONCE | | | PRN, Nausea, Starting 07/07/19 | | | at 0906, For 1 dose, | | | Post-op/Phase II | | + +---+ | | | + +---+ | sodium chloride 0.9% (NS) | | | infusion at 10-100 mL/hr, | | | Intravenous, CONTINUOUS, Starting | | | 07/07/19 at 0800, TKO. Use | | | this instead of LR if patient is | | | on dialysis., Pre-op | | + +---+ | | | + +---+ documented in this encounter
--- OUTSIDE RECORDS SUMMARY | ~2019-09-09 | XMS | Encounter Summary ---
Demographics + + + | Address | [address] | | | [place] [address] | + + + | Home Phone | | + + + | Preferred Language | Unknown | + + + | Marital Status | | + + + | Amish Affiliation | 1041 | + + + | Race | Unknown | + + + | Ethnic Group | Unknown | + + + Author + + + | Author | [facility] | | | and [place] | + + + | Organization | [facility] | | | and [...] Team Providers + +------+ + | Care Mass Spec Name | Role | Phone | + [...] + + | 06/04/ | Telephone | [facility] | Cornelio Edmond | Imaging Only ([facility] | | 2019 | | GASTROENTEROLOGY | MD Corbin [address] | scheduled) | | | | [address] [place] | [address] [place] | | | | | [address] | [facility] [place] [address] | | | | | [address] | [phone] | | | | | [phone] | | | +--------+ + + + [...]
--- OUTSIDE RECORDS SUMMARY | ~2019-09-09 | XMS | Encounter Summary ---
Demographics + + + | Address | [address] | | | [place] [address] | + + + | Home Phone | | + + + | Preferred Language | Unknown | + + + | Marital Status | | + + + | Rastafarian Affiliation | 1041 | + + + | Race | Unknown | + + + | Ethnic Group | Unknown | + + + Author + + + | Author | [facility] | | | and [place] | + + + | Organization | [facility] | | [...] Team Providers + +------+ + | Care Stopboard Assembler Name | Role | Phone | + +------+ + | Kayla Núñez PA-C | PCP | | + +------+ + Reason for Visit + + + | Reason | Comments | + + + | Abdominal Pain | | + + + Evaluate & Treat (Routine) +--------+--------+ + + + + | Status | Reason | Specialty | Diagnoses / | Referred By | Referred To | | | | | Procedures | Contact | Contact | +--------+--------+ + + + + | Closed | | Gastroenterol | Diagnoses | [place], | May[place], | | | | ogdiana | Generalized | Kayla Enciso, | Cornelio Alaniz, | | | | | abdominal | [place]-C [address] | MD [address] | | | | | pain R14.0 | | [address] | | | | | (ICD-10-CM) | [address] | [place], | | | | | [address] | [place] [address] | | | | | (ICD-9-CM) - | [place], | Phone: | | | | | [place] | [place] [address] | [phone] | | | | | R19.8 | Phone: | Fax: | | | | | (ICD-10-CM) | [phone] | [phone] | | | | | - 787.02 | Fax: | | | | | | (ICD-9-CM) - | [phone] | | | | | | Alternating | | | | | | | | | | | | | | constipation | | | | | | | and | | | | | | | diarrhea/Yel | | | | | | | lowhawk/Ceda | | | | | | | rs PA/self | | | | | | | Procedures | | | | | | | OFFICE VISIT | | | | | | | REGULAR | | | +--------+--------+ + + + + Encounter Details +--------+---------+ + + + | Date | Type | Department | Care Team | Description | +--------+---------+ + + + | 12/09/ | Office | [facility] | Cornelio Edmond | Gastroesophageal | | 2018 | Visit | GASTROENTEROLOGY | MD Corbin [address] | reflux disease | | | | [address] [place] | [address] [place] | without esophagitis | | | | [address] [place] [place] | [place] [address] | (Primary Dx); | | | | [address] | [phone] | Chronic idiopathic | | | | [phone] | | constipation | +--------+---------+ + + + Social History [...] + + + | Blood Pressure | 130/74 | 12/09/2017 3:17 PM | | | | | PDT | | + + + + + | Pulse | 78 | 12/09/2017 3:17 PM | | | | | PDT | | + + + + + | Temperature | 36.8 C (98.3 F) | 12/09/2017 3:17 PM | | | | | PDT | | + + + + + | Respiratory Rate | 12 | 12/09/2017 3:17 PM | | | | | PDT | | + + + + + | Oxygen Saturation | 98% | 12/09/2017 3:17 PM | | | | | PDT | | + + + + + | Inhaled Oxygen | - | - | | | Concentration | | | | + + + + + | Weight | 98.1 kg (216 lb 4.3 | 12/09/2017 3:17 PM | | | | oz) | PDT | | + + + + + | Height | 157.5 cm (5' 2") | 12/09/2017 3:17 PM | | | | | PDT | | + + + + + | Body Mass Index | 39.56 | 12/09/2017 3:17 PM | | | | | PDT [...] + + documented as of this encounter Progress Notes Cornelio Edmond MD - 12/09/2017 3:30 PM PDT Gastroenterology Clinic Progress Note Date of Office Visit: 12/09/17 Primary Care Physician: Kayla Núñez PA-C Chief Complaint Abdominal Pain History of Present Illness Inocencia Chavez is a 52 y.o. female who was referred for evaluation abdominal pain, bloati ng, and constipation. She has a history of C. diff, and E. coli colitis. She is also diabe tic and is on insulin and metformin. Her other complaint is worsening GERD.She previously h ad a normal colonoscopy in 2009 done in the context of an abnormal CT scan showing colitis. She was last seen on 11/12/2017 Interval history: Metformin was held and she noticed a significant improvement in many different symptoms inc luding abdominal cramping, bloating, and also stiffness in her hands. She had normalization of her bowel habits, having 1 movement per day. She is also using MiraLAX presently once a day. Omeprazole for GERD was initiated at 20 mg daily. She said that she had resolution of her heartburn symptoms. She has been on this now for 1 month. Review of Systems A 10 point review [...] 2015 Diabetes mellitus (HCC) Diverticulosis Hyperlipidemia Hypertension Past Surgical History Past Surgical History: Procedure Laterality Date SECTION x3 COLONOSCOPY 2015 GALLBLADDER SURGERY Allergies Allergies Allergen Reactions Amlodipine Other (See [...] tablet Take 400 mg by mouth Daily. methocarbamol (ROBAXIN) 750 mg tablet Take 750 [...] morning (before break fast). 30 tablet 3 ranitidine (ZANTAC) 150 mg tablet Take 150 mg by mouth 2 times daily. No current facility-administered medications on file prior to visit. Physical Exam Vitals:BP 130/74 | Pulse 78 | Temp 36.8 C (98.3 F) (Temporal) | Resp 12 | Ht 1.575 m (5' 2") | Wt 98.1 kg (216 lb 4.3 oz) | SpO2 98% | BMI 39.56 kg/m General: This is a well-developed,well-nurished female in no apparent distress, alert and o riented x 3. Physical exam otherwise not performed Labs No new labs Imaging No new imaging Assessment and Plan This is a 52-year-old woman with diabetes, returning for follow-up of bloating, abdominal p ain, constipation, and GERD. 1. GERD: She has had resolution of symptoms on omeprazole 20 mg daily. Instructed her to t ry to come off of the omeprazole and to use it on a as needed basis. Recommended that when she needs to take it to take 20 mg daily for 2 weeks and then stop. Discussed risks and favian efits of long-term PPI use. If she needs to be on it for symptom control than nightly she w ould only require 20 mg daily. 2. Constipation/bloating: Resolved, after stopping metformin and increasing MiraLAX intake . No change in management recommended at this point in time. 3. CRC screening - due for screening colonoscopy in 2019 ICD-10-CM ICD-9-CM 1. Gastroesophageal reflux disease without esophagitis K21.9 530.81 2. Chronic idiopathic constipation K59.04 564.00 Follow up: Return if symptoms worsen or fail to improve. CC: STEPH CastroC [id number] [place] [address] LEAH Larios-[id number] [place] [address] Portions of this chart may have been created with [employer] voice recognition software. Occasi onal wrong-word or sound-alike substitutions may have occurred due to the inherent parkinson itations of voice recognition software. Please read the chart carefully and recognize, using context, where these substitutions have occurred documented in thi s encounter Plan of Treatment Not on filedocumented as of this encounter Visit Diagnoses + + | Diagnosis | + + | Gastroesophageal reflux disease without esophagitis - Primary Esophageal reflux | + + | Chronic idiopathic constipation Unspecified constipation | + + documented in this encounter
--- OUTSIDE RECORDS SUMMARY | ~2019-09-09 | XMS | Encounter Summary ---
Demographics + + + | Address | [address] | | | [place] [address] | + + + | Home Phone | | + + + | Preferred Language | Unknown | + + + | Marital Status | | + + + | Adventism Affiliation | 1041 | + + + | Race | Unknown | + + + | Ethnic Group | Unknown | + + + Author + + + | Author | [facility] | | | and [place] | + + + | Organization | [facility] | | | [...] Team Providers + +------+ + | Care Freight Representative Name | Role | Phone | + +------+ + | Kayla Núñez PA-C | PCP | | + +------+ + Encounter Details +--------+ + + + + | Date | Type | Department | Care Team | Description | +--------+ + + + + | 05/15/ | Orders Only | [facility] | Dimitrios Paniagua MD [address] | Other muscle spasm | | 2019 | | NEUROLOGY [address] | [address] | | | | | [address] | [address], | | | | | [place], [place] | [place] [address] | | | | | [address] | [phone] | | | | | [phone] | | | +--------+ + + + [...] as of this encounter Plan of Treatment + +------+--------+ + + | Name | Type | Priori | Associated Diagnoses | Order Schedule | | | | ty | | | + +------+--------+ + + | CK Total | Lab | Routin | Other muscle spasm | Expected: | | | | e | | 01/30/2019, Expires: | | | | | | 01/31/2020 | + +------+--------+ + + | Comprehensive | Lab | Routin | Other muscle spasm | Expected: | | Metabolic Panel | | e | | 01/30/2019, Expires: | | | | | | 01/30/2020 | + +------+--------+ + + | Vitamin B-12 and | Lab | Routin | Other muscle spasm | Expected: | | Folate | | e | | 01/30/2019, Expires: | | | | | | 01/30/2020 | + +------+--------+ + + | Immunofixation, | Lab | Routin | Other muscle spasm | Expected: | | Serum | | e | | 01/30/2019, Expires: | | | | | | 01/31/2020 | + +------+--------+ + + | Protein | Lab | Routin | Other muscle spasm | Expected: | | Electrophoresis, | | e | | 01/30/2019, Expires: | | Serum | | | | 01/31/2020 | + +------+--------+ + + | Magnesium | Lab | Routin | Other muscle spasm | Expected: | | | | e | | 01/30/2019, Expires: | | | | | | 01/31/2020 | + +------+--------+ + + | Phosphorus | Lab | Routin | Other muscle spasm | Expected: | | | | e | | 01/30/2019, Expires: | | | | | | 01/31/2020 | + +------+--------+ + + documented as of this encounter Visit Diagnoses + + | Diagnosis | + + | Other muscle spasm | + + documented in this encounter"
--- OUTSIDE RECORDS SUMMARY | ~2019-09-09 | XMS | Encounter Summary ---
Demographics + + + | Address | [address] | | | [place] [address] | + + + | Home Phone | | + + + | Preferred Language | Unknown | + + + | Marital Status | | + + + | Alevism Affiliation | 1041 | + + + | Race | Unknown | + + + | Ethnic Group | Unknown | + + + Author + + + | Author | [facility] | | | and [place] | + + + | Organization | [facility] | | | [...] Team Providers + +------+ + | Care Regulatory Affairs Spec Name | Role | Phone | [...] | | | constipation | | [place] [address] | | | | | Type II or | | Phone: | | | | | unspecified | | [phone] | | | | | type | | Fax: | | | | | diabetes | | [phone] | | | | | mellitus | [...] | | | | | | | CT | | | | | | | ESOPHAGOGAST | | | | | | | RODUODENOSCO | | | | | | | PY TRANSORAL | | | | | | | DIAGNOSTIC | | | | | | | CT EGD | | | | | | | TRANSORAL | | | | | | | BIOPSY | | | | | | | SINGLE/MULTI | | | | | | | PLE CT | | | | | | | COLONOSCOPY | | | | | | | FLX DX | | | | | | | W/COLLJ SPEC | | | | | | | WHEN PFRMD | | | | | | | CT | | | | | | | COLONOSCOPY | | | | | | | W/BIOPSY | | | | | | | SINGLE/MULTI | | | | | | | PLE CT | | | | | | | COLSC FLX | | | | | | | W/RMVL OF | | | | | | | TUMOR POLYP | | | | | | | LESION SNARE | | | | | | | TQ CT | | | | | | | [...] + + + + | 07/07/ | Hospital | [facility] | Cornelio Doe | Irritable bowel | | 2019 | Encounter | MED CTR MP INTRA OP | MD Corbin [address] | syndrome with | | | | [address] | [address] [place] | constipation; Early | | | | [place], [place] | [place] [address] | satiety; | | | | [address] | [phone] | Non-intractable | | | | [phone] | | cyclical vomiting | | | | | | with nausea; | | | | | | Sedative dependence | | | | | | (HCC); Special | | | | | | screening for | | | | | | malignant neoplasms, | | | | | | colon; | | | | | | Gastroesophageal | | | | | | reflux disease | | | | | | without esophagitis; | | | | | | Gastric polyp | +--------+ + + + + Social [...] Watch when you eat Avoid lying down guh0toeoo after eating. Do not snack before going [...] and ibuprofen Stop smoking Date Last Reviewed: 03/30/201619997288-3343 [facility]. [address] [place] [address]. All [facility] ts reserved. This information is not intended [...] heart rate Chest pain Date Last Reviewed: 02/28/201819992258-4465 [employer]. [address] [place] [address]. All righ ts reserved. This information is [...] tablet by | 30 | 3 | 02/14/20 | | | (PROTONIX) 40 mg | [...] uncontrolled(250.60) | | | | | | ([facility]) Early | | | | | | satiety | | | | | | Non-intractable | | | | | | cyclical vomiting | | | | | | with nausea | | | | | | Sedative dependence | | | | | | (HCC) | | + +--------+ + + + [...] uncontrolled(250.60) | | | | | | ([facility]) Early | | | | | | satiety | | | | | | Non-intractable | | | | | | cyclical vomiting | | | | | | with nausea | | | | | | Sedative dependence | | | | | | ([facility]) | | + +--------+ + + + [...] (H) | 70 - 109 mg/dL | [facility] | | | POC | | | [...] | + + + + + | [facility] | [address] | [place] | [phone] | | [facility] | | [address] | | | - LABORATORY | | | | + + + + + EGD (07/07/2019 8:07 AM PDT) + + | Specimen | + + | | + + + + ----+ | Narrative | Performed At | + + ----+ | | [facility] | | GastroenterologyPatient Name: Inocencia Mendez Date: 07/07/2019 | [place] | | 8:07 AMMRN: [id number] #: [id number] of : | | | 1965Admit Type: AmbulatoryAge: 53Room: Endo Room 2Gender: | | | FemaleNote Status: FinalizedAttending MD: CORNELIO DOE , | | | MDProcedure: Upper GI endoscopyIndications: | | | Dysphagia, HeartburnProviders: CORNELIO DOE MD, | | | Celeste Paez RN, Shyla Baker | | | LAWRENCE Razo, Kayla Naranjo, Marketing Information Coordinator, Chi | | | Obie TechnicianReferring MD: [...] of esophagus. | | | Biopsied. - [place]-colored mucosa classified as Demarco's stage | | | C0-M1 per [place] criteria. Biopsied. - Z-line, 37 cm from [...] AMScope In: 8:22:49 AMScope Out: 8:32:39 AM [facility] | | | [facility], [address] [place] [address] | | | [phone] | | | - Normal duodenal bulb [...] |Scope Out: 8:32:39 AM | | | [facility], [address] [place] [address] | | | [address] | | + + ----+ + +---------+ [...] | [facility] | | GastroenterologyPatient Name: Inocencia ChavezProgenny Date: 07/07/2019 | [place] | | 7:56 AMMRN: [id number] #: [id number] of : | | | 1965Admit Type: AmbulatoryAge: 53Room: Endo Room 2Gender: | | | FemaleNote Status: FinalizedAttending MD: CORNELIO DOE , | | | MDProcedure: ColonoscopyIndications: Screening | | | for colorectal malignant neoplasm, Incidental | | | constipation notedProviders: CORNELIO DOE MD, | | | Celeste Paez RN, Shyla Baker | | | LAWRENCE Razo, Kayla Naranjo, Marketing Information Coordinator, Chi | | | Obie, TechnicianReferring MD: [...] | preparation was evaluated using the BBPS ([place] Bowel | | | Preparation Scale) with [...] | | 8:34:42 AMScope Out: 8:47:10 AM [facility] | | | [place], [address] [place] [address] | | | - No specimens collected. [...] |Scope Out: 8:47:10 AM | | | [facility], [address] [place] [address] | | | [address] | | + + -+ + +---------+ [...] | | metaplasia, negative for definite dysplasia. JVR:[facility]:C2NR | | | GROSS DESCRIPTION: Three specimens [...] component was | | | performed by [facility], [address] [place] [address] | | | (Podiatric Surgeon: Anu Shukla MD; CLIA# [id number]). Professional | | | interpretation was performed by [facility] [place] | | | [facility], [address] [place] [address] | | | [address] (Podiatric Surgeon: Zackery Rubi M.D.). Diagnostician: | | | Zackery Rubi MD Pathologist Electronically Signed 07/08/2019 | | | | | + + + + +---------+ + + | Performing | Address | City/State/[facility] Centercode | Phone Number | | Organization | | | | + +---------+ + + | [facility] | | | | | [place] | | | | + +---------+ + + documented in this encounter Visit Diagnoses + + | Diagnosis | + + | Irritable bowel syndrome with constipation Irritable bowel syndrome | + + | Early satiety | + + | Non-intractable cyclical vomiting with nausea | + + | Sedative dependence (HCC) Sedative, hypnotic or anxiolytic dependence, unspecified | + + | Special screening for malignant neoplasms, colon | + + | Gastroesophageal reflux disease without esophagitis Esophageal reflux | + + | Gastric polyp Benign neoplasm of stomach | + + | DIABETES MELLITUS, WITH PERIPHERAL NEUROPATHY Type II or unspecified type diabetes | | mellitus with neurological manifestations, not stated as uncontrolled | + + documented in this encounter Admitting Diagnoses + + | Diagnosis | + + | Type II 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
--- OUTSIDE RECORDS SUMMARY | ~2019-09-09 | XMS | Encounter Summary ---
Demographics + + + | Address | [address] | | | [place] [address] | + + + | Home Phone | | + + + | Preferred Language | Unknown | + + + | Marital Status | | + + + | Tenriism Affiliation | 1041 | + + + | Race | Unknown | + + + | Ethnic Group | Unknown | + + + Author + + + | Author | [facility] | | | and [place] | + + + | Organization | [facility] | | | [...] Team Providers + +------+ + | Care Analytics Analyst Name | Role | Phone | + [...] | SR | | | | | [phone] | | | +--------+ + + + [...]
--- OUTSIDE RECORDS SUMMARY | ~2019-09-09 | XMS | Clinical Summary ---
Demographics + + + | Address | [address] | | | [place] [address] | + + + | Home Phone | | + + + | Preferred Language | Unknown | + + + | Marital Status | | + + + | Latter-Day Affiliation | 1041 | + + + | Race | Unknown | + + + | Ethnic Group | Unknown | + + + Author + + + | Author | [facility] | | | and [place] | + + + | Organization | [facility] | | | [...] Team Providers + +------+ + | Care Tip Puncher Name | Role | Phone | + [...] automatically from request for surgery | | [id number] | + + + + + | Early satiety | 07/01/2019 | + + + + + | Overview: Added automatically from request for surgery | | [id number] | + + + + + | Non-intractable cyclical vomiting with nausea | 07/01/2019 | + + + + + | Overview: Added automatically from request for surgery | | [id number] | + + + + + | Sedative dependence | 07/01/2019 | + + + + + | Overview: Added automatically from request for surgery | | [id number] | + + + + + | [...] | | | | | ([facility]); Special | | | | | | [...] | 2018 | Encounter | | MD Coribn | | +--------+ + + + + [...] | | | | | ([facility]) | | + +--------+ + + + [...] uncontrolled(250.60) | | | | | | ([facility]) Early | | | | | | satiety | | | | | | Non-intractable | | | | | | cyclical vomiting | | | | | | with nausea | | | | | | Sedative dependence | | | | | | ([facility]) | | + +--------+ + + + [...] + | [facility] | [address] | [place] | [phone] | | [facility] | | [address] | | | - LABORATORY | | | | + + + + + EGD (07/07/2019 8:07 AM PDT) + + | Specimen | + + | | + + + + ----+ | Narrative | Performed At | + + ----+ | | [facility] | | GastroenterologyPatient Name: Inocencia Mendez Date: 07/07/2019 | [place] | | 8:07 AMMRN: [id number] #: [id number] of : | | | 1965Admit Type: AmbulatoryAge: 53Room: Endo Room 2Gender: | | | FemaleNote Status: FinalizedAttending MD: CORNELIO DOE , | | | MDProcedure: Upper GI endoscopyIndications: | | | Dysphagia, HeartburnProviders: CORNELIO DOE MD, | | | Celeste Paez RN, Shyla Baker | | | LAWRENCE Razo, Kayla Naranjo, Traffic Control Operator, Chi | | | Obie, TechnicianReferring MD: [...] of esophagus. | | | Biopsied. - [place]-colored mucosa classified as Demarco's stage | | | C0-M1 per [place] criteria. Biopsied. - Z-line, 37 cm from [...] AMScope In: 8:22:49 AMScope Out: 8:32:39 AM [facility] | | | [facility], [address] [place] [address] | | | [phone] | | | - Normal duodenal bulb [...] |Scope Out: 8:32:39 AM | | | [facility], [address] [place] [address] | | | [address] | | + + ----+ + +---------+ [...] 07/07/2019 | [place] | | 7:56 AMMRN: [id number] #: [id number] of : | | | 1965Admit Type: AmbulatoryAge: 53Room: Endo Room 2Gender: | | | FemaleNote Status: FinalizedAttending MD: CORNELIO DOE , | | | MDProcedure: ColonoscopyIndications: Screening | | | for colorectal malignant neoplasm, Incidental | | | constipation notedProviders: CORNELIO DOE MD, | | | Celeste Paez RN, Shyla Baker | | | LAWRENCE Razo, Kayla Naranjo, Traffic Control Operator, Chi | | | Obie TechnicianReferring MD: [...] | preparation was evaluated using the BBPS ([place] Bowel | | | Preparation Scale) with [...] | | 8:34:42 AMScope Out: 8:47:10 AM [facility] | | | [place], [address] [place] [address] | | | - No specimens collected. [...] |Scope Out: 8:47:10 AM | | | [facility], [address] [place] [address] | | | [address] | | + + -+ + +---------+ [...] | | metaplasia, negative for definite dysplasia. JVR:[facility]:C2NR | | | GROSS DESCRIPTION: [...] component was | | | performed by [facility], [address] [place] [address] | | | (Bdc Manager: Anu Shukla MD; CLIA# [id number]). Professional | | | interpretation was performed by [facility] [place] | | | [facility], [address] [place] [address] | | | [address] (Bdc Manager: Zackery Rubi M.D.). Diagnostician: | | | Zackery Rubi MD Pathologist Electronically Signed 07/08/2019 | | | | | + + + + +---------+ + + | Performing | Address | City/State/[facility] Hospitalcode | Phone Number | | Organization | | | | + +---------+ + + | [facility] | | | | | [facility] | | | | + +---------+ + [...] +--------+ +--------+-------+---------+--------+ | BCBS | BCBS | [id number] | 01/30/20 | | | PPO | | | FEDERA | | 16-Pre | | | | | | L FEP | | sent | | | | + +--------+ +--------+-------+---------+--------+ | BCBS | BCBS | [id number] | 01/30/20 | | | PPO | | | FEDERA | | 16-Pre | | | | | | L FEP | | sent | | | | + +--------+ +--------+-------+---------+--------+ | [facility] | IHS | [id number] | 10/31/19 | | | Indemn | [...] Person | Self | [birth year] | [id number] | | | al/Fam | | 1965 | [phone] | [place] [address] | | | [place]o | | | 0 (Home) | | + +--------+ +--------+ + + | Inocencia Chavez | Person | Self | [birth year] | [address] | | | al/Fam | | 1965 | [phone] | [place] [address] | | | [place] | | | 0 (Home) | | | | | | | [phone] | | | | | | | 0 (Work) | | + +--------+ +--------+ + + | HemaInocencia larose | Person | Self | [birth year] | [address] | | | al/Po | | 1965 | [phone] | [place] [address] | | | [place] | | | 0 (Home) | | + +--------+ +--------+ + + Advance Directives + + + + + | Type | Date Recorded | Patient | Explanation | | | | Financial Auditor | | + + + + + [...]
--- OUTSIDE RECORDS SUMMARY | ~2019-09-09 | XMS | Encounter Summary ---
Demographics + + + | Address | [address] | | | [place] [address] | + + + | Home Phone | | + + + | Preferred Language | Unknown | + + + | Marital Status | | + + + | Faith Affiliation | 1041 | + + + [...] Team Providers + +------+ + | Care Brass Sorter Name | Role | Phone | + +------+ + PCP | Unavailable | + +------+ + Encounter Details +--------+ + + + + | Date | Type | Department | Care Team | Description | +--------+ + + + + | 02/13/ | Hospital | [facility] | | | | 1994 | Encounter | SYSTEM RADIOLOGY | | | | | | CONVERSION [address] | | | | | | [address] [place], [place] | | | | | | [address] | | | | | | [phone] | | | +--------+ + + + [...]
--- OUTSIDE RECORDS SUMMARY | ~2019-09-09 | XMS | Encounter Summary ---
Demographics + + + | Address | [address] | | | [place] [address] | + + + | Home Phone | | + + + | Preferred Language | Unknown | + + + | Marital Status | | + + + | Hindu Affiliation | 1041 | + + + [...] Team Providers + +------+ + | Care Business Advisor Name | Role | Phone | + [...] unspecified | MD Corbin | [address] | | | | | type | [address] | [place], | | | | | diabetes | [place] | [place] | | | | | mellitus | [place], [place] | [address] | | | | | with | [address] | Phone: | | | | | neurological | Phone: | [phone] | | | | | | [phone] | Fax: | | | | | manifestatio | Fax: | [phone] | | | | | ns, not | [phone] | | | | | | stated [...] unspecified | MD Corbin | [address] | | | | | type | [address] | [place], | | | | | diabetes | [place] | [place] | | | | | mellitus | [place], [place] | [address] | | | | | with | [address] | Phone: | | | | | neurological | Phone: | [phone] | | | | | | [phone] | Fax: | | | | | manifestatio | Fax: | [phone] | | | | | ns, not | [phone] | | | | | | stated [...] + + | 06/18/ | Hospital | [facility] | Cornelio Edmond | DIABETES MELLITUS, | | 2019 | Encounter | MED CTR NUCLEAR | MD Corbin [address] | WITH PERIPHERAL | | | | MEDICINE [address] [place] | NEUROPATHY; Early | | | | [address] [place], | [place] [address] | satiety; | | | | [place] [address] | [phone] | Non-intractable | | | | [phone] | | cyclical vomiting | | | [...] | | | | PRN, Other, Starting [facility] 06/18/19 | | | | | | | at 0827, For 1 dose, Nuclear | | | | | | | Medicine | | | | | | + +--------+ + +------+------+ +---+---+ | | | +---+---+ documented in this encounter"
--- OUTSIDE RECORDS SUMMARY | ~2019-09-09 | XMS | Encounter Summary ---
Demographics + + + | Address | [address] | | | [place] [address] | + + + | Home Phone | | + + + | Preferred Language | Unknown | + + + | Marital Status | | + + + | Pentecostalism Affiliation | 1041 | + + + | Race | Unknown | + + + | Ethnic Group | Unknown | + + + Author + + + | Author | [facility] | | | and [place] | + + + | Organization | [facility] | | | [...] Providers + +------+ + | Care Sales Trader Name | Role | Phone | + [...] | | | | abdominal | PA-C [address] | [address] | | | | | pain | | [address] [place] | | | | | Bloating | [place] | [address] [place] | | | | | [address]ating | [address] | [place], [place] | | | | | constipation | [place], | [address] | | | | | and | [place] [address] | Phone: | | | | | diarrhea | Phone: | [phone] | | | | | Procedures | [phone] | Fax: | | | | | Office Visit | Fax: | [phone] | | | | | | [phone] | | +--------+--------+ + + + + Encounter Details +--------+---------+ + + + | Date | Type | Department | Care Team | Description | +--------+---------+ + + + | 11/12/ | Office | [facility] | Cornelio Edmond | DIABETES MELLITUS, | | 2017 | Visit | GASTROENTEROLOGY | MD Corbin [address] | WITH PERIPHERAL | | | | [address] [place] | [address] [place] | NEUROPATHY (Primary | | | | [address], [place] | [place] [address] | Dx); Chronic | | | | [address] | [phone] | idiopathic | | | | [phone] | | constipation; | | | | [...] been active for a while, talk to [facility] providerbefore starting again. Laxatives Your healthcare provider may suggest an weqg-fms-wtwcbue product to help ease your constipa tion. He or she may suggest the use of bulk-forming agents or laxatives. The use of laxative s, if used as directed, is common and safe. Follow directions carefully when using them. See your healthcare provider for new-onset constipation, or long-term constipation,to rule ou t other causes such as medicines or thyroid disease. Date Last Reviewed: 03/30/201619995990-6514 [employer]. [address] [place] [address]. All righ ts reserved. This information is not intended as a substitute for professional medical care. Always follow your healthcare professional's instructions. documented in this encounter Progress Notes Cornelio Edmond MD - 11/12/2017 8:00 AM PST Outpatient Gastroenterology Consult Note Date of Office Visit: 11/12/17 Referring Provider: Kayla Núñez PA-C [address] [place] [address] Providing Physician: Cornelio Edmond MD. Chief Complaint: [...] 4 weeks (around 12/10/2017). CC: STEPH CastroC [address] [address] LEAH [id number]-[id number] [employer] [address] [place] [address] Portions of this chart may have been created with [employer] voice recognition software. Occasi onal wrong-word or [...]
--- OUTSIDE RECORDS SUMMARY | ~2019-09-09 | XMS | Encounter Summary ---
Demographics + + + | Address | [address] | | | [place] [address] | + + + | Home Phone | | + + + | Preferred Language | Unknown | + + + | Marital Status | | + + + | Shinto Affiliation | 1041 | + + + | Race | Unknown | + + + | Ethnic Group | Unknown | + + + Author + + + | Author | [facility] | | | and [place] | + + + | Organization | [facility] | | | [...] Team Providers + +------+ + | Care Nickel Plater Name | Role | Phone | + +------+ + | Kayla Núñez PA-C | PCP | | + +------+ + Reason for Visit + + + | Reason | Comments | + + + | Medication Question | Protonix | + + + Encounter Details +--------+ + + + + | Date | Type | Department | Care Team | Description | +--------+ + + + + | 11/12/ | Telephone | [facility] | Cornelio Edmond | Medication Question | | 2018 | | GASTROENTEROLOGY | MD Corbin [address] | (Protonix) | | | | [address] [place] | [address] [facility] | | | | | [address] [place], [place] | [place] [address] | | | | | [address] | [phone] | | | | | [phone] | | | +--------+ + + + [...]
--- OUTSIDE RECORDS SUMMARY | ~2019-09-09 | XMS | Clinical Summary ---
Demographics + + + | Address | [address] | | | [place] [address] | + + + | Home Phone | | + + + | Preferred Language | Unknown | + + + | Marital Status | Single | + + + | Congregational Affiliation | Unknown | + + + | Race | Unknown | + + + | Ethnic Group | Unknown | + + + Author + + + | Author | [facility] agreement24 [email or web address] (Historical as of | | | 05-16-19) | + + + | Organization | [facility] agreement24 avtal24 (Historical as of | | | 05-16-19) [...] Team Providers + +------+ + | Care Leaf Stripper Name | Role | Phone | + [...] +------+-------+ + | PREMERA | PREMER | [id number] | | | [address] [address] | | | A BLUE | | | | [place] | | | [place]OSS | | | | [address] | | | FED | | | [...] + +--------+ +--------+ + + | INOCENCIA CAMARA | Person | Self | [birth year] | Home: | [address] | | | al/Fam | | 1965 | [phone] [place] [address] | | | [place] | | | [address] | | + +--------+ +--------+ + +
--- OUTSIDE RECORDS SUMMARY | ~2019-09-09 | XMS | Encounter Summary ---
Demographics + + + | Address | [address] | | | [place] [address] | + + + | Home Phone | | + + + | Preferred Language | Unknown | + + + | Marital Status | | + + + | Mormon Affiliation | 1041 | + + + | Race | Unknown | + + + | Ethnic Group | Unknown | + + + Author + + + | Author | [facility] | | | and [place] | + + + | Organization | [facility] | | | [...] Team Providers + +------+ + | Care Director Of Business Development Name | Role | Phone | + [...] | | | | abdominal | [place] [address] | MD [address] | | | | | pain R14.0 | | [address] | | | | | (ICD-10-CM) | [address] | [place], | | | | | - [address] | [place] [address] | | | | | (ICD-9-CM) - | [place], | Phone: | | | | | [place] | [place] [address] | [phone] | | | | | R19.8 | Phone: | Fax: | | | | | (ICD-10-CM) | [phone] | [phone] | | | | | - 787.29 | Fax: | | | | | | (ICD-9-CM) - | [phone] | | | | | | Alternating [...] + + | 12/09/ | Office | [facility] | Cornelio Edmond | Gastroesophageal | | 2018 | Visit | GASTROENTEROLOGY | MD Corbin [address] | reflux disease | | | | [address] [place] | [address] [place] | without esophagitis | | | | [address] [place] | [place] [address] | (Primary Dx); | | | | [address] | [phone] | Chronic idiopathic | | | | [phone] | | constipation | +--------+---------+ + + [...] or fail to improve. CC: STEPH CastroC [id number] [place] [address] LEAH [id number] [place] [address] Portions of this chart may have been created with [employer] voice recognition software. Occasi onal wrong-word or [...]
--- OUTSIDE RECORDS SUMMARY | ~2019-09-09 | XMS | Encounter Summary ---
Demographics + + + | Address | [address] | | | [place] [address] | + + + | Home Phone | | + + + | Preferred Language | Unknown | + + + | Marital Status | | + + + | Oriental Orthodox Affiliation | 1041 | + + + | Race | Unknown | + + + | Ethnic Group | Unknown | + + + Author + + + | Author | [facility] | | | and [place] | + + + | Organization | [facility] | | | [...] Team Providers + +------+ + | Care Air Grinder Name | Role | Phone | + [...] unspecified | MD Corbin | [address] | | | | | type | [address] | [place], | | | | | diabetes | [address] [place] | [place] | | | | | mellitus | [place], [place] | [address] | | | | | with | [id number] | Phone: | | | | | neurological | Phone: | [phone] | | | | | | [phone] | Fax: | | | | | manifestatio | Fax: | [phone] | | | | | ns, not | [phone] | | | | | | stated [...] unspecified | MD Corbin | [address] | | | | | type | [address] | [place], | | | | | diabetes | [address] [place] | [place] | | | | | mellitus | [place], [place] | [address] | | | | | with | [id number] | Phone: | | | | | neurological | Phone: | [phone] | | | | | | [phone] | Fax: | | | | | manifestatio | Fax: | [phone] | | | | | ns, not | [phone] | | | | | | stated [...] + + | 06/18/ | Hospital | [facility] | Cornelio Edmond | DIABETES MELLITUS, | | 2019 | Encounter | [facility] | MD Corbin [address] | WITH PERIPHERAL | | | | MEDICINE [address] | [address] [place] | NEUROPATHY; Early | | | | [place], | [place] [address] | satiety; | | | | [place] [address] | [phone] | Non-intractable | | | | [phone] | | cyclical vomiting | | | [...] | | | | PRN, Other, Starting [facility] 06/18/19 | | | | | | | at 0827, For 1 dose, Nuclear | | | | | | | Medicine | | | | | | + +--------+ + +------+------+ +---+---+ | | | +---+---+ documented in this encounter"
--- OUTSIDE RECORDS SUMMARY | ~2019-09-09 | XMS | Encounter Summary ---
Demographics + + + | Address | [address] | | | [place] [address] | + + + | Home Phone | | + + + | Preferred Language | Unknown | + + + | Marital Status | | + + + | Latter-Day Affiliation | [id number] | + + + | Race | Unknown | + + + | Ethnic Group | Unknown | + + + Author + + + | Author | [facility] | | | and [place] | + + + | Organization | [facility] | | | [...] | + + +---------+ + | Manny Kaufmank | ECON | N | | | | | N, | | + + +---------+ + Care Team Providers + +------+ + | Care Chain Sales Representative Name | Role | Phone | + +------+ + | Unknown, Practitioner MD | PCP | | + +------+ + Reason for Visit + + + | Reason | Comments | + + + | Dizziness | | + + + Encounter Details +--------+ + + + + | Date | Type | Department | Care Team | Description | +--------+ + + + + | 05/04/ | Emergency | [facility] | Kevan Landon | Acute kidney injury | | 2017 - | | HOSPITAL MED SURG | [address] | ([facility]) (Primary Dx); | | | | [address] | [address] | Dehydration; | | 05/05/ | | [place], [place] | [place] [address] | Intractable vomiting | | 2017 | | [address] | [phone] | with nausea, | | | | [phone] | | unspecified vomiting | | | | | | type | +--------+ + + + + Social [...] + + + | Blood Pressure | 127/67 | 05/05/2017 7:10 AM | | | | | PDT | | + + + + + | Pulse | 70 | 05/05/2017 7:10 AM | | | | | PDT | | + + + + + | Temperature | 36.7 C (98 F) | 05/05/2017 7:10 AM | | | | | PDT | | + + + + + | Respiratory Rate | 20 | 05/05/2017 7:10 AM | | | | | PDT | | + + + + + | Oxygen Saturation | 96% | 05/05/2017 7:10 AM | | | | | PDT | | + + + + + | Inhaled Oxygen | - | - | | | Concentration | | | | + + + + + | Weight | 98.9 kg (218 lb) | 05/04/2017 9:00 PM | per bed | | | | PDT | | + + + + + | Height | 152.4 cm (5') | 05/04/2017 5:08 PM | | | | | PDT | | + + + + + | Body Mass Index | 42.58 | 05/04/2017 5:08 PM | | | | | PDT [...] + documented as of this encounter Discharge Summaries Kevan Landon MD - 05/05/2017 10:21 AM PDTFormatting of this note might be differen t from the original. DISCHARGE SUMMARY Pt. Name/Age/: Inocencia Chavez 51 y.o. 1965 Date of Admission: 05/04/2017 Date of Discharge: 05/05/2017 Admitting Physician: Kevan Landon PCP: Practitioner Unknown Discharging Physician: Kevan Landon Consultants: None Primary Discharge Dx: Acute kidney injury Dehydration Nausea and vomiting Procedures: None Reason for Admission (Brief): 51yo F admitted with n/v/dehydration and JIMBO for observation and rehydration. Hospital Course, including Complications: ## Dehydration, JIMBO, intractable vomiting: Patient with acute kidney injury from what appe ared to be dehydration, poor fluid intake, being out in the heat without air conditioning an d possible gastroenteritis. Patient had elevated creatinine and BUN and mildly elevated lac cabral. No s/s infection, vitals wnl. No e/o DKA. She was given 2L of NS and zofran x2 in t he ED and continued to vomit. With inability to keep fluids down and with JIMBO, decision mad e to admit to observation for IV rehydration, antiemetics and repeat labs. Patient was rehy drated overnight and felt much improved in the AM, able to tolerate PO, JIMBO almost completel y resolved with discharge creatinine 1.07. She was told to continue to hydrate at home and follow up this week with her PCP in [place]. ## DM: BGs in the high 100s. Continued home regimen of lantus 38U qhs, humolog 13U TID w/m eals. Held metformin with renal failure. Continued statin, ASA. ## HTN: Cont metoprolol. Held lisinopril with JIMBO. ## Anxiety: cont home prn xanax ## GERD: cont ranitidine ## Asthma: cont monteleukast, prn albuterol nebs. Review of Systems 10 point ros o/w neg Vital Signs: Patient Vitals for the past 24 hrs: BP Temp Temp src Pulse Resp SpO2 Height Weight 05/05/17 0710 127/67 36.7 C (98 F) Oral 70 20 96 % - - 05/05/17 0447 141/69 36.5 C (97.7 F) Oral 76 20 94 % - - 05/05/17 0349 - - - 82 20 97 % - - 05/05/17 0027 128/61 36.4 C (97.6 F) Oral 86 16 96 % - - 05/04/17 2100 - - - - - - - 98.9 kg (218 lb) 05/04/17 1708 162/57 36.6 C (97.8 F) Oral 86 22 94 % 1.524 m (5') 81.6 kg (180 lb) Intake/Output Summary (Last 24 hours) at 05/05/17 1021 Last data filed at 05/05/17 0800 Gross per 24 hour Intake 0 ml Output 0 ml Net 0 ml Weight: First: 81.6 kg (05/04/17 1708)Last: 98.9 kg (per bed) (05/04/17 2100)Difference: 17.3kg Physical Exam: Physical Exam Constitutional: She is oriented to person, place, and time. She appears well-developed and well-nourished. No distress. HENT: Head: Normocephalic and atraumatic. Eyes: Pupils are equal, round, and reactive to light. Neck: Normal range of motion. Cardiovascular: Normal rate, regular rhythm and normal heart sounds. Exam reveals no chavez p and no friction rub. No murmur heard. Pulmonary/Chest: Effort normal and breath sounds normal. No respiratory distress. She has n o wheezes. She has no rales. Abdominal: Soft. Bowel sounds are normal. She exhibits no distension. There is no tendernes s. There is no rebound and no guarding. Musculoskeletal: She exhibits no edema. Neurological: She is alert and oriented to person, place, and time. Skin: Skin is warm. Capillary refill takes less than 2 seconds. She is not diaphoretic. Psychiatric: She has a normal mood and affect. Her behavior is normal. Judgment and thought content normal. Results for orders placed or performed during the hospital encounter of 05/04/17 CBC with Differential Result Value Ref Range WBC 10.6 >4.5-<11.0 K/uL RBC 4.02 (L) 4.50 - 6.00 M/uL Hgb 11.6 (L) >12.4-<15.7 g/dL Hct 35.1 (L) >37.7-<47.0 % MCV 87.3 78.0 - 98.0 fL MCH 28.9 26.0 - 32.0 pg MCHC 33.0 31.0 - 36.0 g/dL RDW-CV 13.4 12.0 - 15.0 % Platelet Count 303 >140-<440 K/uL MPV 9.1 fL % Neutrophils 71.9 37.0 - 80.0 % % Lymphocytes 20.6 10.0 - 50.0 % % Monocytes 4.8 0.0 - 12.0 % % Eosinophils 1.7 0.0 - 7.0 % % Basophils 0.6 0.0 - 2.5 % Absolute Neutrophils 7.59 1.67 - 8.80 K/uL Absolute Lymphocytes 2.17 0.60 - 3.40 K/uL Absolute Monocytes 0.51 0.00 - 4.00 K/uL Absolute Eosinophils 0.18 0.00 - 2.50 K/uL Absolute Basophils 0.06 0.00 - 0.20 K/uL Comprehensive Metabolic Panel Result Value Ref Range NA 140 135 - 144 mmol/L K 5.7 >3.3-<5.8 mmol/L CL 107 >95-<108 mmol/L CO2 20 (L) 23 - 34 mmol/L ANION GAP 13 7 - 16 mmol/L GLUCOSE 191 (H) 70 - 110 mg/dL BUN 29 (H) 5 - 26 mg/dL Creatinine, Serum/Plasma 1.48 (H) >.60-<1.30 mg/dL eGFR if not 37 (L) >=60 mL/min/1.73m2 CALCIUM 9.3 8.3 - 10.0 mg/dL ALBUMIN 3.7 3.0 - 4.5 g/dL BILIRUBIN TOTAL 0.3 0.0 - 1.0 mg/dL Total protein 7.4 6.6 - 8.5 g/dL AST 23 16 - 38 U/L ALT 28 18 - 63 U/L ALK PHOS 94 50 - 136 U/L GLOBULIN 3.7 (H) 1.5 - 3.5 g/dL Albumin/Globulin ratio 1.0 1.0 - 2.5 BUN/CREA 19.6 7.0 - 24.0 Lipase Result Value Ref Range LIPASE 270 73 - 393 U/L Urinalysis With Microscopic Result Value Ref Range COLOR Light Yellow Straw, Yellow, Light Yellow CLARITY Clear Clear PH UA 6.5 5.0 - 8.0 Specific [place] 1.010 1.005 - 1.030 PROTEIN UA 30 mg/dL (A) Negative BLOOD UA Trace Intact (A) Negative GLUCOSE UA Negative Negative KETONES UA Negative Negative BILIRUBIN UA Negative Negative NITRITE UA Negative Negative LEUKOCYTES ESTERASE UA Trace (A) Negative UROBILINOGEN UA 0.2 E.U./dL 0.2 E.U./dL, 1.0 E.U./dL WBC UA 0-2 (A) None Seen /HPF RBC UA None Seen None Seen /HPF SQUAMOUS EPITHELIAL UA Moderate (A) None Seen, Trace, Few /LPF BACTERIA UA None Seen None Seen, Trace /HPF Lactic Acid Result Value Ref Range LACTATE 2.6 (H) >.0-<2.0 mmol/L Troponin I Result Value Ref Range Troponin I <0.017 0.000 - 0.090 ng/mL Sodium, Urine, Random Result Value Ref Range SODIUM,RANDOM URINE 46 40 - 220 mmol/L Creatinine, Urine, Random Result Value Ref Range Creatinine, Urine, Random 23 (L) 29 - 226 mg/dL CBC with Differential Result Value Ref Range WBC 6.7 >4.5-<11.0 K/uL RBC 3.67 (L) 4.50 - 6.00 M/uL Hgb 10.7 (L) >12.4-<15.7 g/dL Hct 32.3 (L) >37.7-<47.0 % MCV 88.0 78.0 - 98.0 fL MCH 29.2 26.0 - 32.0 pg MCHC 33.1 31.0 - 36.0 g/dL RDW-CV 13.6 12.0 - 15.0 % Platelet Count 274 >140-<440 K/uL MPV 9.5 fL % Neutrophils 61.9 37.0 - 80.0 % % Lymphocytes 28.3 10.0 - 50.0 % % Monocytes 5.7 0.0 - 12.0 % % Eosinophils 3.4 0.0 - 7.0 % % Basophils 0.6 0.0 - 2.5 % Absolute Neutrophils 4.16 1.67 - 8.80 K/uL Absolute Lymphocytes 1.90 0.60 - 3.40 K/uL Absolute Monocytes 0.38 0.00 - 4.00 K/uL Absolute Eosinophils 0.23 0.00 - 2.50 K/uL Absolute Basophils 0.04 0.00 - 0.20 K/uL Basic Metabolic Panel Result Value Ref Range NA 139 135 - 144 mmol/L K 5.3 >3.3-<5.8 mmol/L CL 112 (H) >95-<108 mmol/L CO2 20 (L) 23 - 34 mmol/L ANION GAP 7 7 - 16 mmol/L GLUCOSE 205 (H) 70 - 110 mg/dL BUN 18 5 - 26 mg/dL Creatinine, Serum/Plasma 1.07 >.60-<1.30 mg/dL eGFR if not 54 (L) >=60 mL/min/1.73m2 CALCIUM 8.5 8.3 - 10.0 mg/dL BUN/CREA 16.8 7.0 - 24.0 Lactic Acid Result Value Ref Range LACTATE 1.0 >.0-<2.0 mmol/L POCT Glucose Result Value Ref Range Glucose, WB 142 (A) 65 - 99 mg/dL POCT Glucose Result Value Ref Range Glucose, WB 188 (A) 65 - 99 mg/dL RADIOLOGY No results found. Pending study results on DC: Unresulted Labs and Imaging None Medications Reconciled upon Discharge are: Discharge Medications Unchanged Medications Details ALPRAZolam 0.25 mg tablet Take 0.25 mg by mouth as needed for Anxiety. aka: XANAX ASPIRIN EC LO-DOSE 81 MG EC tablet Generic drug: aspirin Take 81 mg by mouth Daily. calcium-vitamin D 500 mg-200 units per tablet Take 1 tablet by mouth 2 times daily. aka: OSCAL clindamycin 300 MG capsule Take 300 mg by mouth 3 times daily. aka: CLEOCIN ergocalciferol 50,000 units capsule Take 2,000 Units by mouth Daily. aka: VITAMIN D-2 LANTUS SOLOSTAR SC SOLN-1000/ml insulin pen inject 40 units under skin at bedtime lisinopril 40 MG tablet Take 40 mg by mouth Daily. aka: PRINIVIL,ZESTRIL magnesium oxide 400 mg tablet Take 400 mg by mouth Daily. aka: MAG-OX metFORMIN 1000 MG tablet Take 1,000 mg by mouth 2 times daily (with breakfast & dinner). aka: GLUCOPHAGE methocarbamol 750 mg tablet Take 750 mg by mouth 3 times daily as needed for Muscle spasms. aka: ROBAXIN metoprolol succinate 50 mg 24 hr tablet Take 50 mg by mouth Daily. aka: TOPROL-XL NOVOLOG PENFILL SC SOLN-inject 10 units under skin three times a day before meals PROAIR HFA IN AERS-inhale 2 puffs by mouth four times a day as needed raNITIdine 150 mg tablet Take 150 mg by mouth 2 times daily. aka: ZANTAC Condition on Discharge: Stable Condition at Discharge: Improved Disposition: Home Current Support: Family Services Ordered: None Disposition: D/c to home Follow-Up Plans: Follow-up with: PCP in [place] this week Diet: Diabetic Activity: As tolerated Time spent on Discharge and Coordination of post-hospital care: 20 minutes documented in th is encounter Discharge Instructions Instructions Kevan Landon MD - 05/04/2017 Dehydration (Adult) Dehydration occurs when your body loses too much fluid. This may be the result of prolonged vomiting or diarrhea, excessive sweating, or a high fever. It may also happen if you don t drink enough fluid when you re sick or out in the heat. Misuse of diuretics (water pills ) can also be a cause. Symptoms include thirst and decreased urine output. You may also feel dizzy, weak, fatigued , or very drowsy. The diet described below is usually enough to treat dehydration. In some c ases, you may need medicine. Home care Drink at least 12 8-ounce glasses of fluid every day to resolve the dehydration. Fluid m ay include water; orange juice; lemonade; apple, grape, or cranberry juice; clear fruit drin ks; electrolyte replacement and sports drinks; and teas and coffee without caffeine. If you have been diagnosed with a kidney disease, ask your doctor how much and what types of fluids you should drink to prevent dehydration. If you have kidney disease, fluid can build up in the body. This can be dangerous to your health. If you have a fever, muscle aches, or a headache as a result of a cold or flu, you may t alberto acetaminophen or ibuprofen, unless another medicine was prescribed. If you have chronic liver or kidney disease, or have ever had a stomach ulcer or gastrointestinal bleeding, talk with your health care provider before using these medicines. Don't take aspirin if you are younger than 18 and have a fever. Aspirin raises the chance for severe liver injury. Follow-up care Follow up with your health care provider, or as advised. When to seek medical advice Call your health care provider right away if any of these occur: Continued vomiting Frequent diarrhea (more than 5 times a day); blood (red or black color) or mucus in diar kj Blood in vomit or stool Swollen abdomen or increasing abdominal pain Weakness, dizziness, or fainting Unusual drowsiness or confusion Reduced urine output or extreme thirst Fever of 100.4F (34C) or higher Date Last Reviewed: 02/27/201519990882-7833 [employer]. [address] [place] [address], [place] [address]. All righ ts reserved. This information is not intended as a substitute for professional medical care. Always follow your healthcare professional's instructions. AttachmentsThe following attachments cannot be sent through Care Everywhere.Dehydration (Ad ult) (Albanian)documented in this encounter Medications at Time of [...] | 0 | 06/13/20 | | | (LANSANDRINE SOLOSTAR SC) | pen inject 40 units [...] + + + +---------+ + + | calcium-vitamin D | Take 1 tablet by | | 0 | | | | (OSCAL) 500 mg-200 | mouth 2 times daily. | | | | 9 | | units per tablet | | | | | | + + + +---------+ + + | clindamycin | Take 300 mg by mouth | | 0 | | | | (CLEOCIN) 300 MG | 3 times daily. | | | | 9 | | capsule | | | | | | + + + +---------+ + + | magnesium oxide | Take 400 mg by mouth | | 0 | | | | (MAG-OX) 400 mg | Daily. | | | | 9 | | tablet | | | | | | + + + +---------+ + + | metFORMIN | Take 1,000 mg by | | 0 | | | | (GLUCOPHAGE) 1000 MG | mouth 2 times daily | | | | 8 | | tablet | (with breakfast & | | | | | | | dinner). | | | | | + + + +---------+ + + | ranitidine | Take 150 mg by mouth | | 0 | 06/13/20 | | | (ZANTAC) 150 mg | 2 times daily. | | | 12 | 9 | | tablet | | | | | | + + + +---------+ + + documented as of this encounter Plan of Treatment Not on filedocumented as of this encounter Procedures + +--------+ + + + | Procedure Name | Priori | Date/Time | Associated Diagnosis | Comments | | | ty | | | | + +--------+ + + + | POCT GLUCOSE | Routin | 05/05/2017 | | Results for this | | | e | 7:10 AM | | procedure are in the | | | | PDT | | results section. | + +--------+ + + + | CBC WITH | Routin | 05/05/2017 | | Results for this | | DIFFERENTIAL | e | 6:25 AM | | procedure are in the | | | | PDT | | results section. | + +--------+ + + + | LACTIC ACID | Routin | 05/05/2017 | | Results for this | | | e | 6:25 AM | | procedure are in the | | | | PDT | | results section. | + +--------+ + + + | BASIC METABOLIC | Routin | 05/05/2017 | | Results for this | | PANEL | e | 6:25 AM | | procedure are in the | | | | PDT | | results section. | + +--------+ + + + | POCT GLUCOSE | STAT | 05/04/2017 | | Results for this | | | | 9:07 PM | | procedure are in the | | | | PDT | | results section. | + +--------+ + + + | SODIUM, URINE, | Add-On | 05/04/2017 | | Results for this | | RANDOM | | 8:48 PM | | procedure are in the | | | | PDT | | results section. | + +--------+ + + + | CREATININE, URINE, | Add-On | 05/04/2017 | | Results for this | | RANDOM | | 8:48 PM | | procedure are in the | | | | PDT | | results section. | + +--------+ + + + | ECG 12 LEAD | STAT | 05/04/2017 | | | | | | 6:58 PM | | | | | | PDT | | | + +--------+ + + + | URINALYSIS WITH | STAT | 05/04/2017 | | Results for this | | MICROSCOPIC | | 6:37 PM | | procedure are in the | | | | PDT | | results section. | + +--------+ + + + | TROPONIN I | STAT | 05/04/2017 | | Results for this | | | | 5:44 PM | | procedure are in the | | | | PDT | | results section. | + +--------+ + + + | CBC WITH | STAT | 05/04/2017 | | Results for this | | DIFFERENTIAL | | 5:44 PM | | procedure are in the | | | | PDT | | results section. | + +--------+ + + + | LIPASE | STAT | 05/04/2017 | | Results for this | | | | 5:44 PM | | procedure are in the | | | | PDT | | results section. | + +--------+ + + + | LACTIC ACID | STAT | 05/04/2017 | | Results for this | | | | 5:44 PM | | procedure are in the | | | | PDT | | results section. | + +--------+ + + + | COMPREHENSIVE | STAT | 05/04/2017 | | Results for this | | METABOLIC PANEL | | 5:44 PM | | procedure are in the | | | | PDT | | results section. | + +--------+ + + + documented in this encounter Results POCT Glucose (05/05/2017 7:10 AM PDT) + +---------+ + + + | Component | Value | Ref Range | Performed | Pathologist | | | | | At | Signature | + +---------+ + + + | Glucose, WB | 188 (A) | 65 - 99 mg/dL | | | + +---------+ + + + + + | Specimen | + + | Blood | + + Lactic Acid (05/05/2017 6:25 AM PDT) + +-------+ + + + | Component | Value | Ref Range | Performed | Pathologist | | | | | At | Signature | + +-------+ + + + | Lactate | 1.0 | >.0-<2.0 mmol/L | [facility] | | | | | | [facility] | | | | | | [facility] | | + +-------+ + + + + + | Specimen | + + | Blood - Left upper | | arm structure (body | | structure) | + + + + + + + | Performing | Address | City/State/Zipcode | Phone Number | | Organization | | | | + + + + + | [facility] | [address] | [place] [address] | [phone] | | HOSPITAL [facility] | | | | + + + + + Basic Metabolic Panel (05/05/2017 6:25 AM PDT) + + + + + + | Component | Value | Ref Range | Performed | Pathologist | | | | | At | Signature | + + + + + + | Na | 139 | 135 - 144 | [facility] | | | | | mmol/L | [facility] | | | | | [facility] | | | | | | LABORATORY | | + + + + + + | K | 5.3 | >3.3-<5.8 | [facility] | | | | | mmol/L | [facility] | | | | | [facility] | | | | | | LAB[facility]ATORY | | + + + + + + | Cl | 112 (H) | >95-<108 mmol/L | [facility] | | | | | | [facility] | [facility] | | | | | | [facility] | | + + + + + + | CO2 | 20 (L) | 23 - 34 mmol/L | [facility] | | | | | | [facility] | [facility] | | | | | | [facility] | | + + + + + + | Anion Gap | 7 | 7 - 16 mmol/L | [facility] | | | | | | [facility] | | [facility] | | | | | | [facility] | | + + + + + + | Glucose | 205 (H) | 70 - 110 mg/dL | [facility] | | | | | | [facility] | | [facility] | | | | | | [facility] | | + + + + + + | BUN | 18 | 5 - 26 mg/dL | [facility] | | | | | | [facility] | | | [facility] | | | | | | [facility] | | + + + + + + | Creatinine | 1.07 | >.60-<1.30 | [facility] | | | | | mg/dL | [facility] | | | | | | HOSPITAL | | | | | | LABORATORY | | + + + + + + | eGFR if not | 54 (L)Comment: | >=60 | [facility] | | | | GLOMERULAR FILTRATION | mL/min/1.73m2 | [facility] | | | PALEST[place]IAN | RATE,ESTIMATED | | HOSPITAL | | | | mL/min/1.07s5Cwkx than | | LABORATORY | | | | 60 Chronic kidney | | | | | | disease,if found over a | | | | | | 3-month period.Less than | | | | | | 15 Kidney failureFor | | | | | | | | | | | | Americans,multiply the | | | | | | calculated GFR by 1.21. | | | | | | | | | | + + + + + + | Calcium | 8.5 | 8.3 - 10.0 | [facility] | | | | | mg/dL | [facility] | | | | | | [facility] | | | | | | LAB[facility]ATORY | | + + + + + + | BUN/Creatin | 16.8 | 7.0 - 24.0 | [facility] | | | ine Ratio | | | [facility] | | | | | | [facility] | | | | | | LABORATORY | | + + + + + + + + | Specimen | + + | Blood - Left upper | | arm structure (body | | structure) | + + + + + + + | Performing | Address | City/State/Zipcode | Phone Number | | Organization | | | | + + + + + | [facility] | [address] | [place] [address] | [phone] | | HOSPITAL LAB[facility]ATORY | | | | + + + + + CBC with Differential (05/05/2017 6:25 AM PDT) + + + + + + | Component | Value | Ref Range | Performed | Pathologist | | | | | At | Signature | + + + + + + | WBC | 6.7 | >4.5-<11.0 K/uL | [facility] | | | | | | [facility] | | | [facility] | | | | | | [facility]ORY | | + + + + + + | RBC | 3.67 (L) | 4.50 - 6.00 | [facility] | | | | | M/uL | [facility] | | | | | | [facility] | | | | | | LAB[facility]ATORY | | + + + + + + | Hemoglobin | 10.7 (L) | >12.4-<15.7 | [facility] | | | | | g/dL | [facility] | | | | | [facility] | | | | | | LAB[facility]ATORY | | + + + + + + | Hematocrit | 32.3 (L) | >37.7-<47.0 % | [facility] | | | | | | [facility] | | [facility] | | | | | | [facility]ORY | | + + + + + + | MCV | 88.0 | 78.0 - 98.0 fL | [facility] | | | | | | [facility] | | | | [facility] | | | | | | [facility]ORY | | + + + + + + | MCH | 29.2 | 26.0 - 32.0 pg | [facility] | | | | | | [facility] | | | | [facility] | | | | | | [facility]ORY | | + + + + + + | MCHC | 33.1 | 31.0 - 36.0 | [facility] | | | | | g/dL | [facility] | | | | | | [facility] | | | | | | LAB[facility]ATORY | | + + + + + + | RDW-CV | 13.6 | 12.0 - 15.0 % | [facility] | | | | | | [facility] | | | | | | [facility] | | | | | | LAB[facility]ATORY | | + + + + + + | Platelet | 274 | >140-<440 K/uL | [facility] | | | Count | | | [facility] | | | | | | [facility] | | | | | | LABORATORY | | + + + + + + | MPV | 9.5 | fL | [facility] | | | | | | [facility] | | | | | | [facility] | | | | | | LAB[facility]ATORY | | + + + + + + | % | 61.9 | 37.0 - 80.0 % | [facility] | | | Neutrophils | | | COMM[facility] | | | | | | [facility] | | | | | | LABORATORY | | + + + + + + | % | 28.3 | 10.0 - 50.0 % | [facility] | | | Lymphocytes | | | COMM[facility] | | | | | | [facility] | | | | | | LABORATORY | | + + + + + + | % Monocytes | 5.7 | 0.0 - 12.0 % | [facility] | | | | | | [facility] | | | | | | [facility] | | | | | | LAB[facility]ATORY | | + + + + + + | % | 3.4 | 0.0 - 7.0 % | [facility] | | | Eosinophils | | | COMM[facility] | | | | | | [facility] | | | | | | LABORATORY | | + + + + + + | % Basophils | 0.6 | 0.0 - 2.5 % | [facility] | | | | | | [facility] | | | | [facility] | | | | | | LAB[facility]ATORY | | + + + + + + | Absolute | 4.16 | 1.67 - 8.80 | [facility] | | | Neutrophils | | K/uL | [facility] | | | | | | [facility] | | | | | | LABORATORY | | + + + + + + | Absolute | 1.90 | 0.60 - 3.40 | [facility] | | | Lymphocytes | | K/uL | [facility] | | | | | | [facility] | | | | | | LABORATORY | | + + + + + + | Absolute | 0.38 | 0.00 - 4.00 | [facility] | | | Monocytes | | K/uL | [facility] | | | | | | [facility] | | | | | | LABORATORY | | + + + + + + | Absolute | 0.23 | 0.00 - 2.50 | [facility] | | | Eosinophils | | K/uL | [facility] | | | | | | [facility] | | | | | | LABORATORY | | + + + + + + | Absolute | 0.04 | 0.00 - 0.20 | [facility] | | | Basophils | | K/uL | [facility] | | | | | | [facility] | | | | | | LABORATORY | | + + + + + + + + | Specimen | + + | Blood - Left upper | | arm structure (body | | structure) | + + + + + + + | Performing | Address | City/State/Zipcode | Phone Number | | Organization | | | | + + + + + | [facility] | [address] | [place] [address] | [phone] | | HOSPITAL [facility]ORY | | | | + + + + + POCT Glucose (05/04/2017 9:07 PM PDT) + +---------+ + + + | Component | Value | Ref Range | Performed | Pathologist | | | | | At | Signature | + +---------+ + + + | Glucose, WB | 142 (A) | 65 - 99 mg/dL | | | + +---------+ + + + + + | Specimen | + + | Blood | + + Creatinine, Urine, Random (05/04/2017 8:48 PM PDT) + +--------+ + + + | Component | Value | Ref Range | Performed | Pathologist | | | | | At | Signature | + +--------+ + + + | Creatinine, | 23 (L) | 29 - 226 mg/dL | [facility] | | | Urine, | | | [facility] | | | [facility] | | | [facility] | | | | | | LABORATORY | | + +--------+ + + + + + | Specimen | + + | Urine | + + + + + + + | Performing | Address | City/State/Zipcode | Phone Number | | Organization | | | | + + + + + | [facility] | [address] | [place] [address] | [phone] | | H[facility] | | | | + + + + + Sodium, Urine, Random (05/04/2017 8:48 PM PDT) + +-------+ + + + | Component | Value | Ref Range | Performed | Pathologist | | | | | At | Signature | + +-------+ + + + | Sodium, | 46 | 40 - 220 mmol/L | [facility] | | | Urine | | | [facility] | | | [facility] | | | [facility] | | | | | | LABORATORY | | + +-------+ + + + + + | Specimen | + + | Urine | + + + + + + + | Performing | Address | City/State/Zipcode | Phone Number | | Organization | | | | + + + + + | [facility] | [address] | [place] [address] | [phone] | | HOSP[facility]ORY | | | | + + + + + ECG 12 lead (05/04/2017 6:58 PM PDT) + + + | Narrative | Performed At | + + + | | | + + + Urinalysis With Microscopic (05/04/2017 6:37 PM PDT) + + + + + + | Component | Value | Ref Range | Performed | Pathologist | | | | | At | Signature | + + + + + + | Color | Light Yellow | Straw, Yellow, | [facility] | | | | | Light Yellow | [facility] | | | | | | [facility] | | | | | | LABORATORY | | + + + + + + | Clarity | Clear | Clear | [facility] | | | | | | [facility] | [facility] | | | | | | LAB[facility]ATORY | | + + + + + + | pH, Urine | 6.5 | 5.0 - 8.0 | [facility] | | | | | | [facility] | | | [facility] | | | | | | LABORATORY | | + + + + + + | Specific | 1.010 | 1.005 - 1.030 | [facility] | | | [place] | | | [facility] | [facility] | | | | | | LABORATORY | | + + + + + + | Protein, | 30 mg/dL (A) | Negative | [facility] | | | Urine | | | [facility] | | | | | | [facility] | | | | | | LABORATORY | | + + + + + + | Blood, | Trace Intact (A) | Negative | [facility] | | | Urine | | | [facility] | | | | | | [facility] | | | | | | LABORATORY | | + + + + + + | Glucose, | Negative | Negative | [facility] | | | Urine | | | [facility] | | | | | | [facility] | | | | | | LABORATORY | | + + + + + + | Ketones, | Negative | Negative | [facility] | | | Urine | | | [facility] | | | | | | [facility] | | | | | | LABORATORY | | + + + + + + | Bilirubin, | Negative | Negative | [facility] | | | Urine | | | [facility] | | | | | | [facility] | | | | | | LABORATORY | | + + + + + + | Nitrite, | Negative | Negative | [facility] | | | Urine | | | [facility] | | | | | | [facility] | | | | | | LABORATORY | | + + + + + + | Leukocyte | Trace (A) | Negative | [facility] | | | Esterase, | | | COMMUNITY | | | Urine | | | HOSPITAL | | | | | | LABORATORY | | + + + + + + | Urobilinoge | 0.2 E.U./dL | 0.2 E.U./dL, | [facility] | | | n, Urine | | 1.0 E.U./dL | COMM[facility] | | | | | | [facility] | | | | | | LABORATORY | | + + + + + + | WBC UA | 0-2 (A) | None Seen /HPF | [facility] | | | | | | [facility] | | | | | [facility] | | | | | | LABORATORY | | + + + + + + | RBC UA | None Seen | None Seen /HPF | [facility] | | | | | | [facility] | | | | | | [facility] | | | | | | LABORATORY | | + + + + + + | SQUAMOUS | Moderate (A) | None Seen, | [facility] | | | EPITHELIAL | | Trace, Few /LPF | [facility] | | | UA | | | HOSPITAL | | | | | | LABORATORY | | + + + + + + | BACTERIA UA | None Seen | None Seen, | [facility] | | | | | Trace /HPF | [facility] | | | | | | [facility] | | | | | | LABORATORY | | + + + + + + + + | Specimen | + + | Urine | + + + + + + + | Performing | Address | City/State/Zipcode | Phone Number | | Organization | | | | + + + + + | [facility] | [address] | [place] [id number] | [phone] | | HOSPITAL LAB[facility]ATORY | | | | + + + + + Troponin I (05/04/2017 5:44 PM PDT) + +--------+ + + + | Component | Value | Ref Range | Performed | Pathologist | | | | | At | Signature | + +--------+ + + + | Troponin I | <0.017 | 0.000 - 0.090 | [facility] | | | | | ng/mL | COMM[facility]ITY | | | | | | H[facility]PITAL | | | | | | LABORATORY | | + +--------+ + + + + + | Specimen | + + | Blood | + + + + + | Narrative | Performed At | + + + | 0.1-0.5 ng/mL Borderline In patients with unstable angina or | [facility] | | non-Q-wave myocardial infarction, troponin levels above 0.1 ng/mL | [facility] | | within the first 24 hours are at higher risk of or [place] at 48 | HOSPITAL | | hours and 14 days than patients whose cardiac troponin-I levels were | LABORATORY | | below 0.1 ng/mL. Evaluate patient results by looking for a rise and | | | fall in troponin-I levels over time. >0.5 ng/mL Consistent with | | | acute myocardial infarction (AMI) | | + + + + + + + + | Performing | Address | City/State/Zipcode | Phone Number | | Organization | | | | + + + + + | [facility] | [address] | [place] [address] | [phone] | | HOSPITAL LAB[facility]ATORY | | | | + + + + + Lactic Acid (05/04/2017 5:44 PM PDT) + +---------+ + + + | Component | Value | Ref Range | Performed | Pathologist | | | | | At | Signature | + +---------+ + + + | Lactate | 2.6 (H) | >.0-<2.0 mmol/L | [facility] | | | | | | [facility] | [facility] | | | | | | LABORATORY | | + +---------+ + + + + + | Specimen | + + | Blood | + + + + + + + | Performing | Address | City/State/Zipcode | Phone Number | | Organization | | | | + + + + + | [facility] | [address] | [place] [address] | [phone] | | HOSPITAL LAB[facility]ATORY | | | | + + + + + Lipase (05/04/2017 5:44 PM PDT) + +-------+ + + + | Component | Value | Ref Range | Performed | Pathologist | | | | | At | Signature | + +-------+ + + + | Lipase | 270 | 73 - 393 U/L | [facility] | | | | | | [facility] | | | | | | [facility] | | | | | | LABORATORY | | + +-------+ + + + + + | Specimen | + + | Blood | + + + + + + + | Performing | Address | City/State/Zipcode | Phone Number | | Organization | | | | + + + + + | [facility] | [address] | [place] [address] | [phone] | | HOSPITAL LAB[facility]ATORY | | | | + + + + + Comprehensive Metabolic Panel (05/04/2017 5:44 PM PDT) + + + + + + | Component | Value | Ref Range | Performed | Pathologist | | | | | At | Signature | + + + + + + | Na | 140 | 135 - 144 | [facility] | | | | | mmol/L | COMM[facility] | | | | | | H[facility] | | | | | | LABORATORY | | + + + + + + | K | 5.7 | >3.3-<5.8 | [facility] | | | | | mmol/L | [facility] | | | | | | [facility] | | | | | | LABORATORY | | + + + + + + | Cl | 107 | >95-<108 mmol/L | [facility] | | | | | | [facility] | | | | | [facility] | | | | | | LABORATORY | | + + + + + + | CO2 | 20 (L) | 23 - 34 mmol/L | [facility] | | | | | [facility] | | [facility] | | | | | | [facility]ATORY | | + + + + + + | Anion Gap | 13 | 7 - 16 mmol/L | [facility] | | | | | | [facility] | | | [facility] | | | | | | LAB[facility]ATORY | | + + + + + + | Glucose | 191 (H) | 70 - 110 mg/dL | [facility] | | | | | [facility] | | | [facility] | | | | | | LABORATORY | | + + + + + + | BUN | 29 (H) | 5 - 26 mg/dL | [facility] | | | | | | [facility] | | | | | | HOSPITAL | | | | | | LABORATORY | | + + + + + + | Creatinine | 1.48 (H) | >.60-<1.30 | [facility] | | | | | mg/dL | [facility] | | | | | | [facility] | | | | | | LABORATORY | | + + + + + + | eGFR if not | 37 (L)Comment: | >=60 | [facility] | | | | GLOMERULAR FILTRATION | mL/min/1.73m2 | [facility] | | | [facility] | RATE,ESTIMATED | | HOSPITAL | | | | mL/min/1.15f3Akze than | | LABORATORY | | | | 60 Chronic kidney | | | | | | disease,if found over a | | | | | | 3-month period.Less than | | | | | | 15 Kidney failureFor | | | | | | | | | | | | Americans,multiply the | | | | | | calculated GFR by 1.21. | | | | | | | | | | + + + + + + | Calcium | 9.3 | 8.3 - 10.0 | [facility] | | | | | mg/dL | COMM[facility] | | | | | | H[facility] | | | | | | LABORATORY | | + + + + + + | Albumin | 3.7 | 3.0 - 4.5 g/dL | [facility] | | | | | | [facility] | | | | | | [facility] | | | | | | LABORATORY | | + + + + + + | Bilirubin | 0.3 | 0.0 - 1.0 mg/dL | [facility] | | | Total | | | COMM[facility] | | | | | | [facility] | | | | | | LABORATORY | | + + + + + + | Total | 7.4 | 6.6 - 8.5 g/dL | [facility] | | | Protein | | | COMM[facility] | | | | | | [facility]PITAL | | | | | | LABORATORY | | + + + + + + | AST | 23 | 16 - 38 U/L | [facility] | | | | | | [facility] | | | | | | [facility] | | | | | | LABORATORY | | + + + + + + | ALT | 28 | 18 - 63 U/L | [facility] | | | | | | [facility] | | | [facility] | | | | | | LABORATORY | | + + + + + + | Alkaline | 94 | 50 - 136 U/L | [facility] | | | Phosphatase | | | [facility] | | | | | | [facility] | | | | | | LABORATORY | | + + + + + + | Globulin | 3.7 (H) | 1.5 - 3.5 g/dL | [facility] | | | | | | [facility] | | | | [facility] | | | | | | LABORATORY | | + + + + + + | Albumin/Sandrita | 1.0 | 1.0 - 2.5 | [facility] | | | bulin Ratio | | | [facility] | | | | | | [facility] | | | | | | LABORATORY | | + + + + + + | BUN/Creatin | 19.6 | 7.0 - 24.0 | [facility] | | | ine Ratio | | | [facility] | | | | | | [facility] | | | | | | LABORATORY | | + + + + + + + + | Specimen | + + | Blood | + + + + + + + | Performing | Address | City/State/Zipcode | Phone Number | | Organization | | | | + + + + + | [facility] | [address] | [place] [address] | [phone] | | HOSPITAL LAB[facility]ATORY | | | | + + + + + CBC with Differential (05/04/2017 5:44 PM PDT) + + + + + + | Component | Value | Ref Range | Performed | Pathologist | | | | | At | Signature | + + + + + + | WBC | 10.6 | >4.5-<11.0 K/uL | [facility] | | | | | | [facility] | | | | | [facility] | | | | | | LABORATORY | | + + + + + + | RBC | 4.02 (L) | 4.50 - 6.00 | [facility] | | | | | M/uL | COMM[facility] | | | | | | H[facility] | | | | | | LABORATORY | | + + + + + + | Hemoglobin | 11.6 (L) | >12.4-<15.7 | [facility] | | | | | g/dL | [facility] | | | | | | [facility] | | | | | | LABORATORY | | + + + + + + | Hematocrit | 35.1 (L) | >37.7-<47.0 % | [facility] | | | | | | [facility] | | [facility] | | | | | | LABORATORY | | + + + + + + | MCV | 87.3 | 78.0 - 98.0 fL | [facility] | | | | | | [facility] | | | | [facility] | | | | | | LAB[facility]ATORY | | + + + + + + | MCH | 28.9 | 26.0 - 32.0 pg | [facility] | | | | | | [facility] | | | | [facility] | | | | | | LABORATORY | | + + + + + + | MCHC | 33.0 | 31.0 - 36.0 | [facility] | | | | | g/dL | [facility] | | | | | | [facility] | | | | | | LABORATORY | | + + + + + + | RDW-CV | 13.4 | 12.0 - 15.0 % | [facility] | | | | | | [facility] | | | | | | [facility] | | | | | | LABORATORY | | + + + + + + | Platelet | 303 | >140-<440 K/uL | [facility] | | | Count | | | [facility] | | | | | | [facility]PITAL | | | | | | LABORATORY | | + + + + + + | MPV | 9.1 | fL | [facility] | | | | | | [facility] | | | | | | [facility] | | | | | | LABORATORY | | + + + + + + | % | 71.9 | 37.0 - 80.0 % | [facility] | | | Neutrophils | | | COMM[facility] | | | | | | HOSPITAL | | | | | | LABORATORY | | + + + + + + | % | 20.6 | 10.0 - 50.0 % | [facility] | | | Lymphocytes | | | COMM[facility] | | | | | | [facility]PITAL | | | | | | LABORATORY | | + + + + + + | % Monocytes | 4.8 | 0.0 - 12.0 % | [facility] | | | | | | [facility] | | | | | | [facility] | | | | | | LABORATORY | | + + + + + + | % | 1.7 | 0.0 - 7.0 % | [facility] | | | Eosinophils | | | COMM[facility] | | | | | | [facility] | | | | | | LABORATORY | | + + + + + + | % Basophils | 0.6 | 0.0 - 2.5 % | [facility] | | | | | | [facility] | | | | | | [facility] | | | | | | LABORATORY | | + + + + + + | Absolute | 7.59 | 1.67 - 8.80 | [facility] | | | Neutrophils | | K/uL | [facility] | | | | | | [facility] | | | | | | LABORATORY | | + + + + + + | Absolute | 2.17 | 0.60 - 3.40 | [facility] | | | Lymphocytes | | K/uL | [facility] | | | | | | [facility] | | | | | | LABORATORY | | + + + + + + | Absolute | 0.51 | 0.00 - 4.00 | [facility] | | | Monocytes | | K/uL | [facility] | | | | | | [facility] | | | | | | LABORATORY | | + + + + + + | Absolute | 0.18 | 0.00 - 2.50 | [facility] | | | Eosinophils | | K/uL | COMM[facility] | | | | | | [facility] | | | | | | LABORATORY | | + + + + + + | Absolute | 0.06 | 0.00 - 0.20 | [facility] | | | Basophils | | K/uL | [facility] | | | | | | H[facility] | | | | | | LABORATORY | | + + + + + + + + | Specimen | + + | Blood | + + + + + + + | Performing | Address | City/State/Zipcode | Phone Number | | Organization | | | | + + + + + | [facility] | [address] | [place] [address] | [phone] | | HOSPITAL LAB[facility]ATORY | | | | + + + + + documented in this encounter Visit Diagnoses + + | Diagnosis | + + | Acute kidney injury (HCC) - Primary Acute kidney failure, unspecified | + + | Dehydration | + + | Intractable vomiting with nausea, unspecified vomiting type | + + documented in this encounter Administered Medications + +--------+ +--------+------+------+ | Medication Order | MAR | Action | Dose | Rate | Site | | | Action | Date | | | | + +--------+ +--------+------+------+ | albuterol 2.5 mg/3 mL nebulizer | Given | 05/04/20 | 2.5 mg | | | | solution 2.5 mg 2.5 mg, | | 17 9:45 | | | | | Nebulization, EVERY 4 HOURS PRN, | | PM PDT | | | | | Wheezing, Shortness of Breath, | | | | | | | Starting 05/04/17 at 2103 | | | | | | + +--------+ +--------+------+------+ +---+---+ | | | +---+---+ + +-------+ +---------+---+---+ | ALPRAZolam (XANAX) tablet 0.25 | Given | 05/04/20 | 0.25 mg | | | | mg 0.25 mg, Oral, EVERY 12 HOURS | | 17 11:20 | | | | | PRN, Anxiety, Starting Sat | | PM PDT | | | | | 05/04/17 at 2103 | | | | | | + +-------+ +---------+---+---+ +---+---+ | | | +---+---+ + +-------+ +-------+---+---+ | aspirin EC tablet 81 mg 81 mg, | Given | 05/05/20 | 81 mg | | | | Oral, DAILY, First dose on Sun | | 17 8:45 | | | | | 05/05/17 at 0900 | | AM PDT | | | | + +-------+ +-------+---+---+ +---+---+ | | | +---+---+ + +-------+ + +---+---+ | calcium-vitamin D (OSCAL) 500 | Given | 05/05/20 | 1 tablet | | | | mg-200 units per tablet 1 tablet | | 17 8:46 | | | | | 1 tablet, Oral, 2 TIMES DAILY, | | AM PDT | | | | | First dose on 05/04/17 at 2130 | | | | | | + +-------+ + +---+---+ +-------+ + +---+---+ | Given | 05/04/20 | 1 tablet | | | | | 17 9:45 | | | | | | PM PDT | | | | +-------+ + +---+---+ +---+---+ | | | +---+---+ + +-------+ +--------+---+---+ | clindamycin (CLEOCIN) capsule | Given | 05/05/20 | 300 mg | | | | 300 mg 300 mg, Oral, 3 TIMES | | 17 8:46 | | | | | DAILY, First dose on 05/04/17 | | AM PDT | | | | | at 2130, Indications: PURULENT | | | | | | | SKIN AND SOFT TISSUE INFECTION | | | | | | + +-------+ +--------+---+---+ +-------+ +--------+---+---+ | Given | 05/04/20 | 300 mg | | | | | 17 9:45 | | | | | | PM PDT | | | | +-------+ +--------+---+---+ + +---+ | | | + +---+ | dextrose 50% injection 12.5 g | | | 12.5 g, Intravenous, PRN, Low | | | Blood Sugar, Starting 05/04/17 | | | at 2103 | | + +---+ | | | + +---+ + +-------+ +-------+---+---+ | famotidine (PEPCID) tablet 20 | Given | 05/05/20 | 20 mg | | | | mg 20 mg, Oral, 2 TIMES DAILY, | | 17 8:47 | | | | | First dose on 05/04/17 at 2130 | | AM PDT | | | | + +-------+ +-------+---+---+ +-------+ +-------+---+---+ | Given | 05/04/20 | 20 mg | | | | | 17 9:49 | | | | | | PM PDT | | | | +-------+ +-------+---+---+ +---+---+ | | | +---+---+ + +-------+ + +---+ + | insulin glargine (LANTUS) 100 | Given | 05/04/20 | 38 Units | | Abdomen- | | units/mL injection (vial) 38 | | 17 9:46 | | | LUQ | | Units 38 Units, Subcutaneous, | | PM PDT | | | | | NIGHTLY, First dose on 05/04/17 | | | | | | | at 2130, For subcutaneous use | | | | | | | only. Basal (long acting) | | | | | | | insulin., | | | | | | + +-------+ + +---+ + +---+---+ | | | +---+---+ + +-------+ +---------+---+ + | insulin lispro (humaLOG) 100 | Given | 05/05/20 | 2 Units | | Arm-Left | | units/mL injection (vial) 0-12 | | 17 8:49 | | | Upper | | Units 0-12 Units, Subcutaneous, | | AM PDT | | | | | 4 TIMES DAILY WITH MEALS & | | | | | | | NIGHTLY, First dose on 05/04/17 | | | | | | | at 2130, CORRECTION SCALE: | | | | | | | Blood Glucose (BG) < 150: | | | | | | | None BG 150-200: DAY: 2 | | | | | | | units. NIGHT: 0 units BG | | | | | | | 201-250: DAY: 4 units. NIGHT: | | | | | | | 2 units BG 251-300: DAY: 6 | | | | | | | units. NIGHT: 4 units BG | | | | | | | 301-350: DAY: 8 units. NIGHT: | | | | | | | 6 units BG 351-400: DAY: 10 | | | | | | | units. NIGHT: 8 units BG > 400 | | | | | | | : DAY: 12 units. NIGHT: 10 | | | | | | | units | | | | | | | AND CALL PROVIDER , Use DAY DOSE | | | | | | | for doses scheduled: AC, | | | | | | | NPO, Daytime [id number] Use NIGHT | | | | | | | DOSE for doses scheduled: | | | | | | | HS, 3AM, Nighttime [id number], | | | | | | + +-------+ +---------+---+ + +---+---+ | | | +---+---+ + +-------+ + +---+ + | insulin lispro (humaLOG) 100 | Given | 05/05/20 | 13 Units | | Arm-Left | | units/mL injection (vial) 13 | | 17 8:49 | | | Upper | | Units 13 Units, Subcutaneous, 3 | | AM PDT | | | | | TIMES DAILY WITH MEALS, First | | | | | | | dose on 05/04/17 at 2130, | | | | | | | ADJUST DOSE FOLLOWS: Eating | | | | | | | Normally: FULL prescribed | | | | | | | dose NPO (or <1/4 of meals): | | | | | | | Do NOT give this dose of insulin | | | | | | | Less than half of meal: HALF | | | | | | | of this dose If patient eating | | | | | | | predictably, give insulin dose | | | | | | | immediately before meal. If | | | | | | | intake uncertain or inconsistent, | | | | | | | give mealtime/correction insulin | | | | | | | dose within 15 minutes AFTER | | | | | | | finishing meal. , | | | | | | + +-------+ + +---+ + +---+---+ | | | +---+---+ + +-------+ +--------+---+---+ | magnesium oxide (MAG-OX) tablet | Given | 05/05/20 | 400 mg | | | | 400 mg 400 mg, Oral, DAILY, | | 17 8:50 | | | | | First dose on 05/05/17 at 0900 | | AM PDT | | | | + +-------+ +--------+---+---+ +---+---+ | | | +---+---+ + +-------+ +-------+---+---+ | metoprolol succinate | Given | 05/05/20 | 50 mg | | | | (TOPROL-XL) ER tablet 50 mg 50 | | 17 8:50 | | | | | mg, Oral, DAILY, First dose on | | AM PDT | | | | | 05/05/17 at 0900, Tablet may be | | | | | | | cut where scored but do not | | | | | | | crush., | | | | | | + +-------+ +-------+---+---+ + +---+ | | | + +---+ | ondansetron (ZOFRAN ODT) | | | disintegrating tablet (ED | | | homepack) 4 mg 4 mg, Oral, EVERY | | | 6 HOURS PRN, Nausea, Starting | | | 05/04/17 at 2019, Dispense for | | | home use., | | + +---+ | | | + +---+ + +-------+ +------+---+---+ | ondansetron (ZOFRAN) injection | Given | 05/04/20 | 4 mg | | | | 4 mg 4 mg, Intravenous, EVERY 1 | | 17 7:16 | | | | | HOUR PRN, Nausea, Vomiting, | | PM PDT | | | | | Starting 05/04/17 at 1719, For | | | | | | | 2 doses | | | | | | + +-------+ +------+---+---+ +-------+ +------+---+---+ | Given | 05/04/20 | 4 mg | | | | | 17 6:08 | | | | | | PM PDT | | | | +-------+ +------+---+---+ +---+---+ | | | +---+---+ + +---------+ +--------+-------+---+ | sodium chloride 0.9% (NS) bolus | New Bag | 05/04/20 | 1,000 | 2000 | | | 1,000 mL 1,000 mL, Intravenous, | | 17 7:17 | mLs | mL/hr | | | Administer over 30 Minutes, | | PM PDT | | | | | ONCE, 05/04/17 at 1900, For 1 | | | | | | | dose | | | | | | + +---------+ +--------+-------+---+ +---+---+ | | | +---+---+ + +---------+ +---+-------+---+ | sodium chloride 0.9% (NS) | New Bag | 05/05/20 | | 150 | | | infusion at 150 mL/hr, | | 17 3:48 | | mL/hr | | | Intravenous, CONTINUOUS, Starting | | AM PDT | | | | | 05/04/17 at 2130 | | | | | | + +---------+ +---+-------+---+ +---------+ +---+-------+---+ | New Bag | 05/04/20 | | 150 | | | | 17 9:45 | | mL/hr | | | | PM PDT | | | | +---------+ +---+-------+---+ +---+---+ | | | +---+---+ documented in this encounter"
--- OUTSIDE RECORDS SUMMARY | ~2019-09-09 | XMS | Encounter Summary ---
Demographics + + + | Address | [address] | | | [place] [address] | + + + | Home Phone | | + + + | Preferred Language | Unknown | + + + | Marital Status | | + + + | Lutheran Affiliation | 1041 | + + + | Race | Unknown | + + + | Ethnic Group | Unknown | + + + Author + + + | Author | [facility] | | | and [place] | + + + | Organization | [facility] | | | and [place] | + + + | Address | Unknown | + + + | Phone | Unavailable | + + + Support + + +---------+ + | Name | Relationship | Address | Phone | + + +---------+ + | Shiela Chavez | KARMNE | NA | | | | | NA, | | + + +---------+ + | Manny Martinez | ECON | N | | | | | N, | | + + +---------+ + Care Team Providers + +------+ + | Care Flight Nurse Name | Role | Phone | [...] | | | constipation | | [place] [address] | | | | | Type II or | | Phone: | | | | | unspecified | | [phone] | | | | | type | | Fax: | | | | | diabetes | | [phone] | | | | | mellitus | [...] | | | | | | | [place] | | | | | | | ESOPHAGOGAST | | | | | | | RODUODENOSCO | | | | | | | PY TRANSORAL | | | | | | | DIAGNOSTIC | | | | | | | NH EGD | | | | | | | TRANSORAL | | | | | | | BIOPSY | | | | | | | SINGLE/MULTI | | | | | | | PLE NH | | | | | | | COLONOSCOPY | | | | | | | FLX DX | | | | | | | W/COLLJ SPEC | | | | | | | WHEN PFRMD | | | | | | | NH | | | | | | | COLONOSCOPY | | | | | | | W/BIOPSY | | | | | | | SINGLE/MULTI | | | | | | | PLE NH | | | | | | | COLSC FLX | | | | | | | W/RMVL OF | | | | | | | TUMOR POLYP | | | | | | | LESION SNARE | | | | | | | TQ NH | | | | | | | [...] | | | | | [address] | [address] | | | | | [place] | [place] [address] | | | | | [address] | [phone] | | | | | [phone] | | | +--------+---------+ + + + [...] Watch when you eat Avoid lying down agn0erkpp after eating. Do not snack before going [...] and ibuprofen Stop smoking Date Last Reviewed: 03/30/201619999015-8149 [employer]. [address] [place] [address], [place] [address]. All righ ts reserved. This information is [...] heart rate Chest pain Date Last Reviewed: 02/28/201819991847-0216 [employer]. [address] [place] [address]. All righ ts reserved. This information is [...] uncontrolled(250.60) | | | | | | ([facility]) Early | | | | | | satiety | | | | | | Non-intractable | | | | | | cyclical vomiting | | | | | | with nausea | | | | | | Sedative dependence | | | | | | ([facility]) | | + +--------+ + + + [...] uncontrolled(250.60) | | | | | | ([facility]) Early | | | | | | satiety | | | | | | Non-intractable | | | | | | cyclical vomiting | | | | | | with nausea | | | | | | Sedative dependence | | | | | | ([facility]) | | + +--------+ + + + [...] [address] | [place] | [phone] | | [facility] | | [address] | | | - LABORATORY | | | | + + + + + EGD (07/07/2019 8:07 AM PDT) + + | Specimen | + + | | + + + + ----+ | Narrative | Performed At | + + ----+ | | [facility] | | GastroenterologyPatient Name: Inocencia ChavezPatsy Date: 07/07/2019 | [facility] | | 8:07 AMMRN: [id number] #: [id number] of : | | | 1965Admit Type: AmbulatoryAge: 53Room: Endo Room 2Gender: | | | FemaleNote Status: FinalizedAttending MD: CORNELIO DOE , | | | MDProcedure: Upper GI endoscopyIndications: | | | Dysphagia, HeartburnProviders: CORNELIO DOE MD, | | | Celeste Paez RN, Shyla Baker | | | LAWRENCE Razo, Kayla Naranjo, Grip Wrapper, Chi | | | Obie TechnicianReferring MD: [...] of esophagus. | | | Biopsied. - Miramonte-colored mucosa classified as Demarco's stage | | | C0-M1 per [place] criteria. Biopsied. - Z-line, 37 cm from [...] AMScope In: 8:22:49 AMScope Out: 8:32:39 AM [facility] | | | [facility], [address] [place] [address] | | | [phone] | | | - Normal duodenal bulb [...] |Scope Out: 8:32:39 AM | | | [facility], [address] [place] [address] | | | [address] | | + + ----+ + +---------+ [...] 07/07/2019 | [facility] | | 7:56 AMMRN: [id number] #: [id number] of : | | | 1965Admit Type: AmbulatoryAge: 53Room: Endo Room 2Gender: | | | FemaleNote Status: FinalizedAttending MD: CORNELIO DOE , | | | MDProcedure: ColonoscopyIndications: Screening | | | for colorectal malignant neoplasm, Incidental | | | constipation notedProviders: CORNELIO DOE MD, | | | Celeste Paez RN, Shyla Bakre | | | LAWRENCE Razo, Kayla Naranjo, Grip Wrapper, Chi | | | Obie TechnicianReferring MD: [...] | preparation was evaluated using the BBPS ([place] Bowel | | | Preparation Scale) with [...] | | 8:34:42 AMScope Out: 8:47:10 AM [facility] | | | [place], [address] [place] [address] | | | - No specimens collected. [...] |Scope Out: 8:47:10 AM | | | [facility], [address] [place] [address] | | | [address] | | + + -+ + +---------+ + + | Performing | Address | City/State/[facility] | Phone Number | | Organization [...] | | metaplasia, negative for definite dysplasia. JVR:[facility]:C2NR | | | GROSS DESCRIPTION: Three specimens [...] component was | | | performed by [facility], [address] [place] [address] | | | (Technical Spec: Anu Shukla MD; CLIA# [id number]). Professional | | | interpretation was performed by [facility] | | | [address] | | | [address] (Technical Spec: Zackery Rubi M.D.). 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
--- OUTSIDE RECORDS SUMMARY | ~2019-09-09 | XMS | Encounter Summary ---
Demographics + + + | Address | [address] | | | [place] [address] | + + + | Home Phone | | + + + | Preferred Language | Unknown | + + + | Marital Status | | + + + | Shinto Affiliation | 1041 | + + + | Race | Unknown | + + + | Ethnic Group | Unknown | + + + Author + + + | Author | [facility] | | | and [place] | + + + | Organization | [facility] | | | and [...] Team Providers + +------+ + | Care Electronic Calibration Technician Name | Role | Phone | + +------+ + PCP | Unavailable | + +------+ + Encounter Details +--------+ + + + + | Date | Type | Department | Care Team | Description | +--------+ + + + + | 07/18/ | Hospital | [facility] | Conversion | | | 1994 - | Encounter | SYSTEM GENERIC OP | Transaction, | | | | | CONVERSION [address] | Provider Unknown | | | 02/11/ | | [address] [place], [place] | [phone] | | | 1995 | | [address] | | | | | | [phone] | | | +--------+ + + + [...]
--- OUTSIDE RECORDS SUMMARY | ~2019-09-09 | XMS | Encounter Summary ---
Demographics + + + | Address | [address] | | | [place] [address] | + + + | Home Phone | | + + + | Preferred Language | Unknown | + + + | Marital Status | | + + + | Roman Catholic Affiliation | 1041 | + + + | Race | Unknown | + + + | Ethnic Group | Unknown | + + + Author + + + | Author | [facility] | | | and [place] | + + + | Organization | [facility] | | | [...] Team Providers + +------+ + | Care Turning Machine Operator Name | Role | Phone | + +------+ + PCP | Unavailable | + +------+ + Encounter Details +--------+ + + + + | Date | Type | Department | Care Team | Description | +--------+ + + + + | 07/18/ | Hospital | [facility] | Conversion | | | 1994 - | Encounter | SYSTEM GENERIC OP | Transaction, | | | | | CONVERSION [address] | Provider Unknown | | | 02/11/ | | [address] [place], [place] | [phone] | | | 1995 | | [address] | | | | | | [phone] | | | +--------+ + + + [...]
--- OUTSIDE RECORDS SUMMARY | ~2019-09-09 | XMS | Encounter Summary ---
Demographics + + + | Address | [address] | | | [place] [address] | + + + | Home Phone | | + + + | Preferred Language | Unknown | + + + | Marital Status | | + + + | Sikhism Affiliation | 1041 | + + + [...] Team Providers + +------+ + | Care Library Media Assistant Name | Role | Phone | [...] | SR | | | | | [phone] | | | +--------+ + + + [...]
--- OUTSIDE RECORDS SUMMARY | ~2019-09-09 | XMS | Encounter Summary ---
Demographics + + + | Address | [address] | | | [place] [address] | + + + | Home Phone | | + + + | Preferred Language | Unknown | + + + | Marital Status | | + + + | Hoahaoism Affiliation | 1041 | + + + | Race | Unknown | + + + | Ethnic Group | Unknown | + + + Author + + + | Author | [facility] | | | and [place] | + + + | Organization | [facility] | | [...] Team Providers + +------+ + | Care Encyclopedia Research Worker Name | Role | Phone | + [...] + + | 11/12/ | Telephone | [facility] | Cornelio Edmond | Medication Question | | 2018 | | GASTROENTEROLOGY | MD Corbin [address] | (Protonix) | | | | [address] [place] | [address] [place] | | | | | [address] [place], [place] | [place] [address] | | | | | [address] | [phone] | | | | | [phone] | | | +--------+ + + + [...]
--- OUTSIDE RECORDS SUMMARY | ~2019-09-09 | XMS | Encounter Summary ---
Demographics + + + | Address | [address] | | | [place] [address] | + + + | Home Phone | | + + + | Preferred Language | Unknown | + + + | Marital Status | | + + + | Synagogue Affiliation | 1041 | + + + | Race | Unknown | + + + | Ethnic Group | Unknown | + + + Author + + + | Author | [facility] | | | and [place] | + + + | Organization | [facility] | | [...] Team Providers + +------+ + | Care Equipment Sales Specialist Name | Role | Phone | [...] unspecified | MD Corbin | [address] | | | | | type | [address] | [place], | | | | | diabetes | [place] | [place] | | | | | mellitus | [place], [place] | [address] | | | | | with | [address] | Phone: | | | | | neurological | Phone: | [phone] | | | | | | [phone] | Fax: | | | | | manifestatio | Fax: | [phone] | | | | | ns, not | [phone] | | | | | | stated [...] + + | 06/18/ | Hospital | [facility] | Cornelio Edmond | | | 2019 | Encounter | MED CTR NUCLEAR | MD [address] | | | | | MEDICINE [address] [place] | | | | | [address] [place], | [place] [address] | | | | | [place] [address] | [phone] | | | | | [phone] | | | +--------+ + + + [...]
--- OUTSIDE RECORDS SUMMARY | ~2019-09-09 | XMS | Encounter Summary ---
Demographics + + + | Address | [address] | | | [place] [address] | + + + | Home Phone | | + + + | Preferred Language | Unknown | + + + | Marital Status | | + + + | Adventism Affiliation | 1041 | + + + | Race | Unknown | + + + | Ethnic Group | Unknown | + + + Author + + + | Author | [facility] | | | and [place] | + + + | Organization | [facility] | | | and [...] Team Providers + +------+ + | Care Software Clerk Name | Role | Phone | + +------+ + PCP | Unavailable | + +------+ + Encounter Details +--------+ + + + + | Date | Type | Department | Care Team | Description | +--------+ + + + + | 02/25/ | [facility] | [facility] | Mina Fournier | | | 2011 | Encounter | MED CTR XRAY [address] | | | | | [place] | [place] | | | | | [place] [address] | [address] | | | | | [phone] | | | +--------+ + + + [...] | + +--------+ + + + | [place] EPIDURAL STEROID | | 02/26/2012 | | Results for this | | INJECTION LUMBAR | | 3:12 PM | | procedure are in the | | TRANSFORAMINAL | | PDT | | results section. | + +--------+ + + + documented in this encounter Results FL PREET Lumbar Transforaminal (02/26/2012 3:12 PM PDT) + + | Specimen | + + | | + + + + + | Narrative | Performed At | + + + | [facility] Diagnostic Imaging Department | [place] | | [address] [facility] | [facility] | | PROCEDURE NOTE EPIDURAL | DIAG IMG | | STEROID INJECTION, 02/26/2012 CLINICAL HISTORY: ICD-9 CODE | | | 724.4, LUMBAR RADICULITIS. Ms. Inocencia Chavez presents to the | | | fluoroscopy suite for a fluoroscopically-guided left L5-S1 transfor | | | aminal epidural steroid injection as part of conservative management | | | for chronic pain with lumbar rad iculitis and degenerative disk | | | disease. After informed consent was obtained, the patient lay in the | | | prone position on the fluoroscopy table. The area was identified | | | under fluoroscopic guidance. The a lisandro was prepped and draped in | | | sterile fashion. A 25-gauge, 1.5-inch needle was inserted into this | | | re gion and approximately 3 mL of buffered 1% lidocaine was infused. | | | Then, a 22-gauge spinal needle was inserted into the posterior | | | superior transforaminal space and advanced into the epidural space | | | under fluoroscopic guidance. Confirmation into the epidural space | | | was obtained with infusion of approxima tely 1 mL of Isovue contrast | | | which showed epidural flow as well as nerve sheath flow. Then, a | | | combin ation of 1.5 mL of 1% lidocaine and 1.5 mL of 6 mg/mL | | | Celestone was infused. The patient tolerated t he procedure well | | | without complications. Pre- and post-procedure blood pressures were | | | stable. The p atient was given verbal as well as written followup | | | instructions, and the patient reported no signifi cant change in pain | | | symptoms post procedure. Prior to the start of the procedure, | | | the following were performed and verified, including correct pat ient | | | identity, correct site/side marked and visible, agreement on the | | | procedure to be done, correct p atient positioning and an accurate | | | procedure consent form. Any safety precautions based on clinical | | | history and/or medication use have been addressed. I personally | | | performed the procedure above. Dictated Date/Time: 02/26/2012 | | | 18:06 Transcribed Date/Time: 02/26/2012 18:14 Associate Professor Of Forestry: | | | <Electronically Signed by Mina Fournier MD> 02/29/12 | | | 1303 | | + + + + + | Procedure Note | + + | Yinka, Rad Conversion - 11/06/2013 5:25 PM [facility] | | Diagnostic Imaging Department [address] [place] [address] | | PROCEDURE NOTE EPIDURAL STEROID INJECTION, 02/26/2012 | | CLINICAL HISTORY: ICD-9 CODE 724.4, LUMBAR RADICULITIS. Ms. Inocencia Chavez presents to | | the fluoroscopy suite for a fluoroscopically-guided left L5-S1 transforaminal epidural | | steroid injection as part of conservative management for chronic pain with lumbar | | radiculitis and degenerative disk disease. After informed consent was obtained, the | | patient lay in the prone position on the fluoroscopy table. The area was identified | | under fluoroscopic guidance. The area was prepped and draped in sterile fashion. A | | 25-gauge, 1.5-inch needle was inserted into this region and approximately 3 mL of | | buffered 1% lidocaine was infused. Then, a 22-gauge spinal needle was inserted into the | | posterior superior transforaminal space and advanced into the epidural space under | | fluoroscopic guidance. Confirmation into the epidural space was obtained with infusion | | of approximately 1 mL of Isovue contrast which showed epidural flow as well as nerve | | sheath flow. Then, a combination of 1.5 mL of 1% lidocaine and 1.5 mL of 6 mg/mL | | Celestone was infused. The patient tolerated the procedure well without complications. | | Pre- and post-procedure blood pressures were stable. The patient was given verbal as | | well as written followup instructions, and the patient reported no significant change in | | pain symptoms post procedure. Prior to the start of the procedure, the following were | | performed and verified, including correct patient identity, correct site/side marked | | and visible, agreement on the procedure to be done, correct patient positioning and an | | accurate procedure consent form. Any safety precautions based on clinical history | | and/or medication use have been addressed. I personally performed the procedure above. | | Dictated Date/Time: 02/26/2012 18:06Transcribed Date/Time: 02/26/2012 | | 18:14Transcriptionist: <Electronically Signed by Mina Fournier MD> 02/29/12 | | 1303 | |Prior to the start of the procedure, the following were performed and verified, including c orrect pat | |ient identity, correct site/side marked and visible, agreement on the procedure to be done, correct p | |atient positioning and an accurate procedure consent form. Any safety precautions based on clinical | |history and/or medication use have been addressed. | | | |I personally performed the procedure above. | | | |Dictated Date/Time: 02/26/2012 18:06 | |Transcribed Date/Time: 02/26/2012 18:14 | |Associate Professor Of Forestry: | |<Electronically Signed by Mina Fournier MD> 02/29/12 1303 | + + + +---------+ + + | Performing | Address | City/State/Zipcode | Phone Number | | Organization | | | | + +---------+ + + | [place] | | | | | [place] | | | | + +---------+ + + documented in this encounter Visit Diagnoses Not on filedocumented in this encounter"
--- OUTSIDE RECORDS SUMMARY | ~2019-09-09 | XMS | Encounter Summary ---
Demographics + + + | Address | [address] | | | [place] [address] | + + + | Home Phone | | + + + | Preferred Language | Unknown | + + + | Marital Status | | + + + | Denominational Affiliation | 1041 | + + + | Race | Unknown | + + + | Ethnic Group | Unknown | + + + Author + + + | Author | [facility] | | | and [place] | + + + | Organization | [facility] | | [...] Team Providers + +------+ + | Care Mixer Operator Vacuum Pan Salt Name | Role | Phone | + [...] unspecified | MD Corbin | [address] | | | | | type | [address] | [place], | | | | | diabetes | [place] | [place] | | | | | mellitus | [place], [place] | [address] | | | | | with | [address] | Phone: | | | | | neurological | Phone: | [phone] | | | | | | [phone] | Fax: | | | | | manifestatio | Fax: | [phone] | | | | | ns, not | [phone] | | | | | | stated [...] + + | 06/18/ | Hospital | [facility] | Cornelio Edmond | | | 2019 | Encounter | MED CTR NUCLEAR | MD [address]bin [address] | | | | | MEDICINE [address] [place] | | | | | [place], | [place] [address] | | | | | [place] [address] | [phone] | | | | | [phone] | | | +--------+ + + + [...]
--- OUTSIDE RECORDS SUMMARY | ~2019-09-09 | XMS | Encounter Summary ---
Demographics + + + | Address | [address] | | | [place] [address] | + + + | Home Phone | | + + + | Preferred Language | Unknown | + + + | Marital Status | | + + + | Episcopalian Affiliation | 1041 | + + + | Race | Unknown | + + + | Ethnic Group | Unknown | + + + Author + + + | Author | [facility] | | | and [place] | + + + | Organization | [facility] | | | [...] Team Providers + +------+ + | Care Coke Oven [place] Name | Role | Phone | + +------+ + PCP | Unavailable | + +------+ + Encounter Details +--------+ + + + + | Date | Type | Department | Care Team | Description | +--------+ + + + + | 02/13/ | Hospital | [facility] | | | | 1994 | Encounter | SYSTEM RADIOLOGY | | | | | | CONVERSION [address] | | | | | | [address] [place], [place] | | | | | | [address] | | | | | | [phone] | | | +--------+ + + + [...]
--- OUTSIDE RECORDS SUMMARY | ~2019-09-09 | XMS | Encounter Summary ---
Demographics + + + | Address | [address] | | | [place] [address] | + + + | Home Phone | | + + + | Preferred Language | Unknown | + + + | Marital Status | | + + + | Adventist Affiliation | 1041 | + + + | Race | Unknown | + + + | Ethnic Group | Unknown | + + + Author + + + | Author | [facility] | | | and [place] | + + + | Organization | [facility] | | | [...] Team Providers + +------+ + | Care Associate Software Developer Name | Role | Phone | + [...] | | | | Diagnoses | | Mayito, | | | | | Irritable | | Cornelio Corbin, | | | | | bowel | | MD [address] | | | | | syndrome | | [address] | | | | | with | | [place], | | | | | constipation | | [place] [address] | | | | | Type II or | | Phone: | | | | | unspecified | | [phone] | | | | | type | | Fax: | | | | | diabetes | | [phone] | | | | | mellitus | [...] | | | | | | | AL | | | | | | | ESOPHAGOGAST | | | | | | | RODUODENOSCO | | | | | | | PY TRANSORAL | | | | | | | DIAGNOSTIC | | | | | | | AL EGD | | | | | | | TRANSORAL | | | | | | | BIOPSY | | | | | | | SINGLE/MULTI | | | | | | | PLE AL | | | | | | | COLONOSCOPY | | | | | | | FLX DX | | | | | | | W/COLLJ SPEC | | | | | | | WHEN PFRMD | | | | | | | AL | | | | | | | COLONOSCOPY | | | | | | | W/BIOPSY | | | | | | | SINGLE/MULTI | | | | | | | PLE AL | | | | | | | COLSC FLX | | | | | | | W/RMVL OF | | | | | | | TUMOR POLYP | | | | | | | LESION SNARE | | | | | | | TQ AL | | | | | | | [...] + + | 07/07/ | Anesthesia | [facility] | Stan Medeiros | | | 2019 | Event | MED CTR MP INTRA OP | DO Jovon [address] | | | | | [address] | [address] [place] | | | | | [place] | [place] [address] | | | | | [address] | [phone] | | | | | [phone] | | | +--------+ + + + + Anesthesia Record + + + + + | Procedure Name | Responsible | Anesthesia Start | Anesthesia Stop Time | | | Anesthesiologist | Time | | + + + + + | LUPE (N/A Valarie) | Stna Medeiros, | 07/07/19813 | 07/07/19854 | | | DO | | | + + + + + +----+---+ + + | Da | T | Event | Comment | | te | i | | | | | m | | | | | e | | | +----+---+ + + | 10 | 0 | | | | /0 | 8 | | | | 8/ | 0 | | | | 20 | 8 | | | | 19 | | | | +----+---+ + + | | 0 | An Checkout | Pre-use anesthesia machine/equipment checkout. | | | 8 | | | | | 1 | | | | | 1 | | | +----+---+ + + | | 0 | An Start | Reassessment prior to anesthesia induction/procedure. | | | 8 | | | | | 1 | | | | | 4 | | | +----+---+ + + | | 0 | AN | Per surgeon request | | | 8 | Antibiotic | | | | 1 | declined | | | | 4 | | | +----+---+ + + | | 0 | Pre-Procedu | | | | 8 | ral Timeout | | | | 1 | Completed | | | | 6 | | | +----+---+ + + | | 0 | An | | | | 8 | Induction | | | | 1 | | | | | 9 | | | +----+---+ + + | | 0 | First | | | | 8 | Inc/Proc St | | | | 1 | | | | | 9 | | | +----+---+ + + | | 0 | Breathing | | | | 8 | Spontaneous | | | | 2 | ly | | | | 0 | | | +----+---+ + + | | 0 | an stop | | | | 8 | data | | | | 5 | | | | | 0 | | | +----+---+ + + | | 0 | An Stop | Patient handed off to recovery nurse. | | | 5 | | | | | 5 | | | +----+---+ + + +------+ | Meds | +------+ + + + | Name | Total | + + + | propofol (DIPRIVAN) injection | 50 mg | | (bolus) (20 mL) | | + + + | propofol | 432.01 mg | + + + | lidocaine 2% | 100 mg | + + + | lactated ringers (LR) infusion | 0 mL | + + + + + | No agents on file. | + + + + | No blood administrations on file. | + + +--------+ + + + | Type | Details | Placement | Removal | +--------+ + + + | Periph | 07/07/19; 804; Left; Hand; | 07/07/19804 by | 07/07/19947 by | | eral | [id number] catheter system; | Cl Barbour RN | Luzma Gao, | | IV | 20 gauge, 1 1/4 in length; (POC | | RN | | | BS 125); 0; distraction, | | | | | intradermal injection, tolerated | | | | | well, appears comfortable; no | | | | | longer indicated, removed per | | | | | policy/procedure, catheter/device | | | | | intact; 07/07/19; 947 | | | +--------+ + + + documented in this encounter Social History + +-------+ +--------+------+ | Tobacco [...] Diagnoses Not on filedocumented in this encounter Administered Medications + +---------+ +--------+-------+------+ | Medication Order | MAR | Action | Dose | Rate | Site | | | Action | Date | | | | + +---------+ +--------+-------+------+ | lactated ringers (LR) infusion | New [...] | | | | | + +---------+ +--------+-------+------+ +---------+ +---+---+---+ | New Bag | 07/07/20 | | | | | | 19 7:50 | | | | | | AM PDT | | | | +---------+ +---+---+---+ +---+---+ | | | +---+---+ + +-------+ +--------+---+---+ | lidocaine (PF) 2% injection | Given | 07/07/20 | 100 mg | | | | Intravenous, PRN, Starting Tue | | 19 8:20 | | | | | 07/07/19 at 0820, Anesthesia | | AM PDT | | | | | Intra-op | | | | | | + +-------+ +--------+---+---+ +---+---+ | | | +---+---+ + +-------+ +-------+---+---+ | propofol (DIPRIVAN) injection | Given | 07/07/20 | 50 mg | | | | Intravenous, PRN, Starting Tue | | 19 8:20 | | | | | 07/07/19 at 0820, Anesthesia | | AM PDT | | | | | Intra-op | | | | | | + +-------+ +-------+---+---+ +---+---+ | | | +---+---+ + + + + +-------+---+ | propofol (DIPRIVAN) injection | Rate/Dos | 07/07/20 | 120 | 70.1 | | | Intravenous, CONTINUOUS PRN, | e Change | 19 8:41 | mcg/kg/m | mL/hr | | | Starting 07/07/19 at 0820, | | AM PDT | in | | | | Anesthesia Intra-op | | | | | | + + + + +-------+---+ + + + +--------+---+ | Rate/Dose Change | 07/07/20 | 160 | 93.4 | | | | 19 8:35 | mcg/kg/m | mL/hr | | | | AM PDT | in | | | + + + +--------+---+ | New Bag | 07/07/20 | 200 | 116.8 | | | | 19 8:20 | mcg/kg/m | mL/hr | | | | AM PDT | in | | | + + + +--------+---+ +---+---+ | | | +---+---+ documented in this encounter"
--- OUTSIDE RECORDS SUMMARY | ~2019-09-09 | XMS | Encounter Summary ---
Demographics + + + | Address | [address] | | | [place] [address] | + + + | Home Phone | | + + + | Preferred Language | Unknown | + + + | Marital Status | | + + + | Tenriism Affiliation | 1041 | + + + | Race | Unknown | + + + | Ethnic Group | Unknown | + + + Author + + + | Author | [facility] | | | and [place] | + + + | Organization | [facility] | | | [...] Team Providers + +------+ + | Care Medical Consultant Name | Role | Phone | + +------+ + | Kayla Núñez PA-C | PCP | | + +------+ + Encounter Details +--------+ + + + + | Date | Type | Department | Care Team | Description | +--------+ + + + + | 05/15/ | Orders Only | [facility] | Dimitrios Paniagua MD [address] | Other muscle spasm | | 2019 | | NEUROLOGY [address] | [address] | | | | | [address] | [address], | | | | | [place], [place] | [place] [address] | | | | | [address] | [phone] | | | | | [phone] | | | +--------+ + + + [...]
--- OUTSIDE RECORDS SUMMARY | ~2019-09-09 | XMS | Encounter Summary ---
Demographics + + + | Address | [address] | | | [place] [address] | + + + | Home Phone | | + + + | Preferred Language | Unknown | + + + | Marital Status | | + + + | Rastafari Affiliation | 1041 | + + + | Race | Unknown | + + + | Ethnic Group | Unknown | + + + Author + + + | Author | [facility] | | | and [place] | + + + | Organization | [facility] | | [...] Team Providers + +------+ + | Care Progressive Care Unit Registered Nurse Name | Role | Phone | [...] unspecified | MD Corbin | [address] | | | | | type | [address] | [place], | | | | | diabetes | [place] | [place] | | | | | mellitus | [place], [place] | [address] | | | | | with | [address] | Phone: | | | | | neurological | Phone: | [phone] | | | | | | [phone] | Fax: | | | | | manifestatio | Fax: | [phone] | | | | | ns, not | [phone] | | | | | | stated [...] + + | 06/18/ | Hospital | [facility] | Cornelio Edmond | | | 2019 | Encounter | MED CTR NUCLEAR | MD Corbin [address] | | | | | MEDICINE [address] [place] | | | | | [place], | [place] [address] | | | | | [place] [address] | [phone] | | | | | [phone] | | | +--------+ + + + [...]
--- OUTSIDE RECORDS SUMMARY | ~2019-09-09 | XMS | Encounter Summary ---
Demographics + + + | Address | [address] | | | [place] [address] | + + + | Home Phone | | + + + | Preferred Language | Unknown | + + + | Marital Status | | + + + | Christianity Affiliation | 1041 | + + + | Race | Unknown | + + + | Ethnic Group | Unknown | + + + Author + + + | Author | [facility] | | | and [place] | + + + | Organization | [facility] | | | and [place] | + + + | Address | Unknown | + + + | Phone | Unavailable | + + + Support + + +---------+ + | Name | Relationship | Address | Phone | + + +---------+ + | Shieal Chavez | KARMEN | NA | | | | | NA, | | + + +---------+ + | Manny Martinez | ECON | N | | | | | N, | | + + +---------+ + Care Team Providers + +------+ + | Care Tape Duplicator Name | Role | Phone | + +------+ + PCP | Unavailable | + +------+ + Encounter Details +--------+ + + + + | Date | Type | Department | Care Team | Description | +--------+ + + + + | 07/18/ | Hospital | [facility] | Conversion | | | 1994 - | Encounter | SYSTEM GENERIC IP | Transaction, | | | | | CONVERSION [address] | Provider Unknown | | | 07/21/ | | [address] [place], [place] | | | | 1994 | | [address] | | | | | | [phone] | | | +--------+ + + + [...]
--- OUTSIDE RECORDS SUMMARY | ~2019-09-09 | XMS | Encounter Summary ---
Demographics + + + | Address | [address] | | | [place] [address] | + + + | Home Phone | | + + + | Preferred Language | Unknown | + + + | Marital Status | | + + + | Latter Day Affiliation | 1041 | + + + | Race | Unknown | + + + | Ethnic Group | Unknown | + + + Author + + + | Author | [facility] | | | and [place] | + + + | Organization | [facility] | | | [...] Team Providers + +------+ + | Care Senior Financial Reporting Analyst Name | Role | Phone | + +------+ + PCP | Unavailable | + +------+ + Encounter Details +--------+ + + + + | Date | Type | Department | Care Team | Description | +--------+ + + + + | 02/25/ | [facility] | [facility] | Mina Fournier | | | 2011 | Encounter | MED CTR XRAY [address] | [address] | | | | | [place] | [place] | | | | | [place] [address] | [address] | | | | | [phone] | | | +--------+ + + + [...] Performed At | + + + | [facility] Diagnostic Imaging Department | [place] | | [address] [facility] | [facility] | | PROCEDURE NOTE EPIDURAL | DIAG [...] | | 18:06 Transcribed Date/Time: 02/26/2012 18:14 Impregnation Operator: | | | <Electronically Signed by Mina Fournier MD> 02/29/12 | | | 1303 | | + + + + + | Procedure Note | + + | Yinka, Rad Conversion - 11/06/2013 5:25 PM [facility] | | Diagnostic Imaging Department [address] [place] [address] | | PROCEDURE NOTE EPIDURAL STEROID INJECTION, [...] 18:06 | |Transcribed Date/Time: 02/26/2012 18:14 | |Impregnation Operator: | |<Electronically Signed by Mina Fournier MD> 02/29/12 1303 | + + + +---------+ + + | Performing | Address | City/State/Zipcode | Phone Number | | Organization | | | | + +---------+ + + | [place] | | | | | [place] | | | | + +---------+ + + documented in this encounter Visit Diagnoses Not on filedocumented in this encounter"
--- OUTSIDE RECORDS SUMMARY | ~2019-09-09 | XMS | Clinical Summary ---
Demographics + + + | Address | [address] | | | [place] [address] | + + + | Home Phone | | + + + | Preferred Language | Unknown | + + + | Marital Status | Single | + + + | Faith Affiliation | Unknown | + + + | Race | Unknown | + + + | Ethnic Group | Unknown | + + + Author + + + | Author | [facility] [employer] (Historical as of | | | 05-16-19) | + + + | Organization | [facility] [employer] (Historical as of | | | 05-16-19) [...] Providers + +------+ + | Care Director Television Name | Role | Phone | + [...] +------+-------+ + | PREMERA | PREMER | [id number] | | | [address] [address] | | | A BLUE | | | | [place] | | | [place] | | | | [address] | | | FED | | | [...] | Self [birth year] Home: | [address] | | | al/Fam | | 1965 | [phone] [place] [address] | | | albaro | | | 7860 | | + +--------+ +--------+ + +
--- OUTSIDE RECORDS SUMMARY | ~2019-09-09 | XMS | Encounter Summary ---
Demographics + + + | Address | [address] | | | [place] [address] | + + + | Home Phone [...] | Author | [facility] | | | and [place] | + [...] Team Providers + +------+ + | Care Security Control Center Operator Name | Role | Phone | [...] unspecified | MD Corbin | [address] | | | | | type | [address] | [place], | | | | | diabetes | [place] | [place] | | | | | mellitus | [place], [place] | [address] | | | | | with | [address] | Phone: | | | | | neurological | Phone: | [phone] | | | | | | [phone] | Fax: | | | | | manifestatio | Fax: | [phone] | | | | | ns, not | [phone] | | | | | | stated [...] + + | 06/18/ | Hospital | [facility] | Cornelio Edmond | | | 2019 | Encounter | MED CTR NUCLEAR | MD Corbin [address] | | | | | MEDICINE [address] [place] | | | | | [place], | [place] [address] | | | | | [place] [address] | [phone] | | | | | [phone] | | | +--------+ + + + [...]
--- OUTSIDE RECORDS SUMMARY | ~2019-09-09 | XMS | Encounter Summary ---
Demographics + + + | Address | [address] | | | [place] [address] | + + + | Home Phone | | + + + | Preferred Language | Unknown | + + + | Marital Status | | + + + | Taoism Affiliation | 1041 | + + + | Race | Unknown | + + + | Ethnic Group | Unknown | + + + Author + + + | Author | [facility] | | | and [place] | + + + | Organization | [facility] | | | [...] Team Providers + +------+ + | Care Quality Control Assistant Name | Role | Phone | [...] 2018 | | GASTROENTEROLOGY | [address] [place], [place] | | | | | [address] [place] | [address] [place], [place] | | | | | [address] [place], [place] | [address] | | | | | [address] | | | | | | [phone] | | | +--------+ + + + [...] - 1.03 | EXTERNAL | | | [place], | | | LAB | | | [...]
--- OUTSIDE RECORDS SUMMARY | ~2019-09-09 | XMS | Encounter Summary ---
Demographics + + + | Address | [address] | | | [place] [address] | + + + | Home Phone | | + + + | Preferred Language | Unknown | + + + | Marital Status | | + + + | Sabianist Affiliation | 1041 | + + + | Race | Unknown | + + + | Ethnic Group | Unknown | + + + Author + + + | Author | [facility] | | | and [place] | + + + | Organization | [facility] | | | [...] Team Providers + +------+ + | Care Graduate Fellow Name | Role | Phone | + [...] unspecified | MD Corbin | [address] | | | | | type | [address] | [place], | | | | | diabetes | [place] | [place] | | | | | mellitus | [place], [place] | [address] | | | | | with | [address] | Phone: | | | | | neurological | Phone: | [phone] | | | | | | [phone] | Fax: | | | | | manifestatio | Fax: | [phone] | | | | | ns, not | [phone] | | | | | | stated [...] + | 06/18/ | Hospital | [facility] | Cornelio Edmond | | | 2019 | Encounter | MED CTR NUCLEAR | MD Corbin [address] | | | | | MEDICINE [address] [place] | | | | | [place], | [place] [address] | | | | | [place] [address] | [phone] | | | | | [phone] | | | +--------+ + + + [...]
--- OUTSIDE RECORDS SUMMARY | ~2019-09-09 | XMS | Encounter Summary ---
Demographics + + + | Address | [address] | | | [place] [address] | + + + | Home Phone | | + + + | Preferred Language | Unknown | + + + | Marital Status | | + + + | Christian Affiliation | 1041 | + + + | Race | Unknown | + + + | Ethnic Group | Unknown | + + + Author + + + | Author | [facility] | | | and [place] | + + + | Organization | [facility] | | [...] Team Providers + +------+ + | Care Investment Accountant Name | Role | Phone | + +------+ + | Kayla Núñez PA-C | PCP | | + +------+ + Encounter Details +--------+ + + + + | Date | Type | Department | Care Team | Description | +--------+ + + + + | 07/07/ | Orders Only | [facility] | Cornelio Edmond | Irritable bowel | | 2019 | | GASTROENTEROLOGY | MD Corbin [address] | syndrome with | | | | [address] [place] | [address] [place] | constipation | | | | [address] [place], [place] | [place] [address] | | | | | [address] | [phone] | | | | | [phone] | | | +--------+ + + + [...] constipation Irritable bowel syndrome | + + documented in this encounter"
--- OUTSIDE RECORDS SUMMARY | ~2019-09-09 | XMS | Encounter Summary ---
Demographics + + + | Address | [address] | | | [place] [address] | + + + | Home Phone [...] Team Providers + +------+ + | Care Beater Room Helper Name | Role | Phone | + +------+ + PCP | Unavailable | + +------+ + Encounter Details +--------+ + + + + | Date | Type | Department | Care Team | Description | +--------+ + + + + | 02/13/ | Hospital | [facility] | | | | 1994 | Encounter | SYSTEM RADIOLOGY | | | | | | CONVERSION [address] | | | | | | [address] [place], [place] | | | | | | [address] | | | | | | [phone] | | | +--------+ + + + [...]
--- OUTSIDE RECORDS SUMMARY | ~2019-09-09 | XMS | Encounter Summary ---
Demographics + + + | Address | [address] | | | [place] [address] | + + + | Home Phone | | + + + | Preferred Language | Unknown | + + + | Marital Status | | + + + | Lutheran Affiliation | 1041 | + + + | Race | Unknown | + + + | Ethnic Group | Unknown | + + + Author + + + | Author | [facility] | | | and [place] | + + + | Organization | [facility] | | | [...] Team Providers + +------+ + | Care Box Bender Name | Role | Phone | + [...] unspecified | MD Corbin | [address] | | | | | type | [address] | [place], | | | | | diabetes | [place] | [place] | | | | | mellitus | [place], [place] | [address] | | | | | with | [address] | Phone: | | | | | neurological | Phone: | [phone] | | | | | | [phone] | Fax: | | | | | manifestatio | Fax: | [phone] | | | | | ns, not | [phone] | | | | | | stated [...] + + | 06/18/ | Hospital | [facility] | Cornelio Edmond | | | 2019 | Encounter | MED CTR NUCLEAR | MD Corbin [address] | | | | | MEDICINE [address] [place] | | | | | [place], | [place] [address] | | | | | [place] [address] | [phone] | | | | | [phone] | | | +--------+ + + + [...]
--- OUTSIDE RECORDS SUMMARY | ~2019-09-09 | XMS | Encounter Summary ---
Demographics + + + | Address | [address] | | | [place] [address] | + + + | Home Phone | | + + + | Preferred Language | Unknown | + + + | Marital Status | | + + + | Advent Affiliation | 1041 | + + + [...] Team Providers + +------+ + | Care Bone Plant Supervisor Name | Role | Phone | [...] | | | constipation | | [place] [address] | | | | | Type II or | | Phone: | | | | | unspecified | | [phone] | | | | | type | | Fax: | | | | | diabetes | | [phone] | | | | | mellitus | [...] | | | | | | | [place] | | | | | | | ESOPHAGOGAST | | | | | | | RODUODENOSCO | | | | | | | PY TRANSORAL | | | | | | | DIAGNOSTIC | | | | | | | [place] EGD | | | | | | | TRANSORAL | | | | | | | BIOPSY | | | | | | | SINGLE/MULTI | | | | | | | PLE WI | | | | | | | COLONOSCOPY | | | | | | | FLX DX | | | | | | | W/COLLJ SPEC | | | | | | | WHEN PFRMD | | | | | | | [place] | | | | | | | COLONOSCOPY | | | | | | | W/BIOPSY | | | | | | | SINGLE/MULTI | | | | | | | PLE [place] | | | | | | | COLSC FLX | | | | | | | W/RMVL OF | | | | | | | TUMOR POLYP | | | | | | | LESION SNARE | | | | | | | TQ [place] | | | | | | | [...] | | | | | [address] | [address] [place] | | | | | [place] | [place] [address] | | | | | [address] | [phone] | | | | | [phone] | | | +--------+ + + + + Anesthesia Record + + + + + | Procedure Name | Responsible | Anesthesia Start | Anesthesia Stop Time | | | Anesthesiologist | Time | | + + + + + | LUPE (N/A Valarie) | Stan Medeiros, | 07/07/19813 | 07/07/19854 | | [...] | 07/07/19947 by | | eral | jine-pph-sszjln catheter system; | Cl Barbour RN | [...]
--- OUTSIDE RECORDS SUMMARY | ~2019-09-09 | XMS | Encounter Summary ---
Demographics + + + | Address | [address] | | | [place] [address] | + + + | Home Phone | | + + + | Preferred Language | Unknown | + + + | Marital Status | | + + + | Druze Affiliation | 1041 | + + + [...] Team Providers + +------+ + | Care Steel Rule Die Maker Apprentice Name | Role | Phone | + +------+ + PCP | Unavailable | + +------+ + Encounter Details +--------+ + + + + | Date | Type | Department | Care Team | Description | +--------+ + + + + | 02/25/ | [facility] | [facility] | Mina Fournier | | | 2011 | Encounter | MED CTR XRAY [address] | [address] | | | | | [place] | [place] | | | | | [place] [address] | [address] | | | | | [phone] | | | +--------+ + + + [...] Performed At | + + + | [facility] Diagnostic Imaging Department | [place] | | [address] [facility] | [facility] | | PROCEDURE NOTE EPIDURAL | [...] | | 18:06 Transcribed Date/Time: 02/26/2012 18:14 Hand Rigger: | | | <Electronically Signed by Mina Fournier MD> 02/29/12 | | | 1303 | | + + + + + | Procedure Note | + + | Yinka, Rad Conversion - 11/06/2013 5:25 PM [facility] | | Diagnostic Imaging Department [address] [place] [address] | | PROCEDURE NOTE EPIDURAL STEROID INJECTION, [...] 18:06 | |Transcribed Date/Time: 02/26/2012 18:14 | |Hand Rigger: | |<Electronically Signed by Mina Fournier MD> [...]
--- OUTSIDE RECORDS SUMMARY | ~2019-09-09 | XMS | Encounter Summary ---
Demographics + + + | Address | [address] | | | [place] [address] | + + + | Home Phone | | + + + | Preferred Language | Unknown | + + + | Marital Status | | + + + | Scientologist Affiliation | 1041 | + + + | Race | Unknown | + + + | Ethnic Group | Unknown | + + + Author + + + | Author | [facility] | | | and [place] | + + + | Organization | [facility] | | | [...] Team Providers + +------+ + | Care Health Insurance Adjuster Name | Role | Phone | + [...] + + | 06/22/ | Telephone | [facility] | Cornelio Edmond | Results, Imaging | | 2019 | | GASTROENTEROLOGY | MD Corbin [address] | | | | | [address] [place] | [address] [place] | | | | | [address] [place], [place] | [place] [address] | | | | | [address] | [phone] | | | | | [phone] | | | +--------+ + + + [...]
--- OUTSIDE RECORDS SUMMARY | ~2019-09-09 | XMS | Encounter Summary ---
Demographics + + + | Address | [address] | | | [place] [address] | + + + | Home Phone | | + + + | Preferred Language | Unknown | + + + | Marital Status | | + + + | Zoroastrian Affiliation | 1041 | + + + | Race | Unknown | + + + | Ethnic Group | Unknown | + + + Author + + + | Author | [facility] | | | and [place] | + + + | Organization | [facility] | | | [...] Team Providers + +------+ + | Care Color Worker Name | Role | Phone | + +------+ + PCP | Unavailable | + +------+ + Encounter Details +--------+ + + + + | Date | Type | Department | Care Team | Description | +--------+ + + + + | 07/18/ | Hospital | [facility] | Conversion | | | 1994 - | Encounter | SYSTEM GENERIC IP | Transaction, | | | | | CONVERSION [address] | Provider Unknown | | | 07/21/ | | [address] [place], [place] | | | | 1994 | | [phone] | | | | | | [phone] | | | +--------+ + + + [...]
--- OUTSIDE RECORDS SUMMARY | ~2019-09-09 | XMS | Encounter Summary ---
Demographics + + + | Address | [address] | | | [place] [address] | + + + | Home Phone | | + + + | Preferred Language | Unknown | + + + | Marital Status | | + + + | Moravian Affiliation | 1041 | + + + [...] Providers + +------+ + | Care Medical Doctor Md/Medical Director Name | Role | Phone | + [...] + + | 05/04/ | Emergency | [facility] | Kevan Landon | Acute kidney injury | | 2017 - | | HOSPITAL MED SURG | MD [address] | ([facility]) (Primary Dx); | | | | [address] | [address] | Dehydration; | | 05/05/ | | [place], [place] | [place] [address] | Intractable vomiting | | 2017 | | [address] | [phone] | with nausea, | | | | [phone] | | unspecified vomiting | | | [...] up this week with her PCP in [place]. ## DM: BGs in the high 100s. [...] PH UA 6.5 5.0 - 8.0 Specific [place] 1.010 1.005 - 1.030 PROTEIN UA 30 [...] home Follow-Up Plans: Follow-up with: PCP in [place] this week Diet: Diabetic Activity: As tolerated [...] 100.4F (34C) or higher Date Last Reviewed: 02/27/201519995690-2710 [employer]. [address] [place] [address], [place] [address]. All righ ts reserved. This information is not intended as a substitute for professional medical care. Always follow your healthcare professional's instructions. AttachmentsThe following attachments cannot be sent through Care Everywhere.Dehydration (Ad ult) (Mohawk)documented in this encounter Medications at Time of [...] | + + + + + | [facility] | [address] | [place] [address] | [phone] | | HOSPITAL LABORATORY | | | [...] | Creatinine | 1.07 | >.60-<1.30 | [facility] | | | | | mg/dL | [facility] | | | | | | HOSPITAL | | | | | | LABORATORY | | + + + + + + | eGFR if not | 54 (L)Comment: | >=60 | [facility] | | | | GLOMERULAR FILTRATION | mL/min/1.73m2 | [facility] | | | QATARI | RATE,ESTIMATED | | HOSPITAL | | | | mL/min/1.74b2Yvfm than | | LABORATORY | | | [...] | + + + + + | [facility] | [address] | [place] [address] | [phone] | | HOSPITAL LABORATORY | | | [...] | + + + + + | [facility] | [address] | [place] [address] | [phone] | | HOSPITAL LABORATORY | | | [...] | + + + + + | [facility] | [address] | [place] [address] | [phone] | | HOSPITAL LABORATORY | | | [...] | [address] | [place] [address] | [phone] | | HOSPITAL LABORATORY | | | [...] - 1.030 | [place] | | | [place] | | | COMMUNITY | | | [...] | + + + + + | [facility] | [address] | [place] [address] | [phone] | | HOSPITAL LABORATORY | | | | + + + + + Troponin I (05/04/2017 5:44 PM PDT) + +--------+ + + + | Component | Value | Ref Range | Performed | Pathologist | | | | | At | Signature | + +--------+ + + + | Troponin I | <0.017 | 0.000 - 0.090 | [facility] | | | | | ng/mL [...] hours are at higher risk of or [place] at 48 | HOSPITAL | | hours [...] | + + + + + | [facility] | [address] | [place] [address] | [phone] | | HOSPITAL LABORATORY | | | [...] | + + + + + | [facility] | [address] | [place] [address] | [phone] | | HOSPITAL LABORATORY | | | [...] | + + + + + | [facility] | [address] | [place] [address] | [phone] | | HOSPITAL LABORATORY | | | [...] (H) | 5 - 26 mg/dL | [place] | | | | | | [facility] | | | | | | HOSPITAL | | | | | | LABORATORY | | + + + + + + | Creatinine | 1.48 (H) | >.60-<1.30 | [place] | | | | | mg/dL | [facility] | | | | | | [facility] | | | | | | LABORATORY | | + + + + + + | eGFR if not | 37 (L)Comment: | >=60 | [place] | | | | GLOMERULAR FILTRATION | mL/min/1.73m2 | [facility] | | | QATARI | RATE,ESTIMATED | | HOSPITAL | | | | mL/min/1.44j0Tjhr than | | LABORATORY | | | [...] | + + + + + | [facility] | [address] | [place] [address] | [phone] | | HOSPITAL LABORATORY | | | [...] | + + + + + | [facility] | [address] | [place] [address] | [phone] | | HOSPITAL LABORATORY | | | [...] | | | | | NPO, Daytime [phone] Use NIGHT | | | | | | | DOSE for doses scheduled: | | | | | | | HS, 3AM, Nighttime 3995-3679, | | | | | | + [...]
--- OUTSIDE RECORDS SUMMARY | ~2019-09-09 | XMS | Encounter Summary ---
Demographics + + + | Address | [address] | | | [place] [address] | + + + | Home Phone | | + + + | Preferred Language | Unknown | + + + | Marital Status | | + + + | Jainism Affiliation | 1041 | + + + | Race | Unknown | + + + | Ethnic Group | Unknown | + + + Author + + + | Author | [facility] | | | and [place] | + [...] Team Providers + +------+ + | Care Drafter Chief Design Name | Role | Phone | + +------+ + PCP | Unavailable | + +------+ + Encounter Details +--------+ + + + + | Date | Type | Department | Care Team | Description | +--------+ + + + + | 02/13/ | Hospital | [facility] | | | | 1994 | Encounter | SYSTEM RADIOLOGY | | | | | | CONVERSION [address] | | | | | | [address] [place], [place] | | | | | | [address] | | | | | | [phone] | | | +--------+ + + + [...]
--- OUTSIDE RECORDS SUMMARY | ~2019-09-09 | XMS | Encounter Summary ---
Demographics + + + | Address | [address] | | | [place] [address] | + + + | Home Phone | | + + + | Preferred Language | Unknown | + + + | Marital Status | | + + + | Sabianist Affiliation | 1041 | + + + | Race | Unknown | + + + | Ethnic Group | Unknown | + + + Author + + + | Author | [facility] | | | and [place] | + + + | Organization | [facility] | | | [...] Team Providers + +------+ + | Care Shop Lead Name | Role | Phone | + +------+ + PCP | Unavailable | + +------+ + Encounter Details +--------+ + + + + | Date | Type | Department | Care Team | Description | +--------+ + + + + | 07/18/ | Hospital | [facility] | Conversion | | | 1994 - | Encounter | SYSTEM GENERIC OP | Transaction, | | | | | CONVERSION [address] | Provider Unknown | | | 02/11/ | | [address] [place], [place] | [phone] | | | 1995 | | [address] | | | | | | [phone] | | | +--------+ + + + [...]
--- OUTSIDE RECORDS SUMMARY | ~2019-09-09 | XMS | Encounter Summary ---
Demographics + + + | Address | [address] | | | [place] [address] | + + + | Home Phone | | + + + | Preferred Language | Unknown | + + + | Marital Status | | + + + | Baptism Affiliation | 1041 | + + + | Race | Unknown | + + + | Ethnic Group | Unknown | + + + Author + + + | Author | [facility] | | | and [place] | + + + | Organization | [facility] | | | [...] Team Providers + +------+ + | Care Biostatistics Director Name | Role | Phone | + +------+ + PCP | Unavailable | + +------+ + Encounter Details +--------+ + + + + | Date | Type | Department | Care Team | Description | +--------+ + + + + | 06/28/ | Hospital | [facility] | Conversion | | | 1994 - | Encounter | SYSTEM GENERIC IP | Transaction, | | | | | CONVERSION [address] | Provider Unknown | | | 07/02/ | | [address] [place], [place] | | | | 1994 | | [address] | | | | | | [phone] | | | +--------+ + + + [...]
--- OUTSIDE RECORDS SUMMARY | ~2019-09-09 | XMS | Encounter Summary ---
Demographics + + + | Address | [address] | | | [place] [address] | + + + | Home Phone | | + + + | Preferred Language | Unknown | + + + | Marital Status | | + + + | Quaker Affiliation | 1041 | + + + | Race | Unknown | + + + | Ethnic Group | Unknown | + + + Author + + + | Author | [facility] | | | and [place] | + + + | Organization | [facility] | | [...] Team Providers + +------+ + | Care Steerer Name | Role | Phone | + [...] + + | 05/04/ | Emergency | [facility] | Kevan Landon | Acute kidney injury | | 2017 - | | HOSPITAL MED SURG | MD [address] | ([facility]) (Primary Dx); | | | | [address] | [address] | Dehydration; | | 05/05/ | | [place], [place] | [place] [address] | Intractable vomiting | | 2017 | | [address] | [phone] | with nausea, | | | | [phone] | | unspecified vomiting | | | [...] up this week with her PCP in [place]. ## DM: BGs in the high 100s. [...] PH UA 6.5 5.0 - 8.0 Specific [place] 1.010 1.005 - 1.030 PROTEIN UA 30 [...] home Follow-Up Plans: Follow-up with: PCP in [place] this week Diet: Diabetic Activity: As tolerated [...] 100.4F (34C) or higher Date Last Reviewed: 02/27/201519998040-7431 [employer]. [address] [place] [address], [place] [address]. All righ ts reserved. This information is [...] | + + + + + | [facility] | [address] | [place] [address] | [phone] | | HOSPITAL LABORATORY | | | [...] | Creatinine | 1.07 | >.60-<1.30 | [facility] | | | | | mg/dL | [facility] | | | | | | HOSPITAL | | | | | | LABORATORY | | + + + + + + | eGFR if not | 54 (L)Comment: | >=60 | [facility] | | | | GLOMERULAR FILTRATION | mL/min/1.73m2 | [facility] | | | STATELESS | RATE,ESTIMATED | | HOSPITAL | | | | mL/min/1.86f6Ypdb than | | LABORATORY | | | [...] | + + + + + | [facility] | [address] | [place] [address] | [phone] | | HOSPITAL LABORATORY | | | [...] | + + + + + | [facility] | [address] | [place] [address] | [phone] | | HOSPITAL LABORATORY | | | [...] | + + + + + | [facility] | [address] | [place] [address] | [phone] | | HOSPITAL LABORATORY | | | [...] | [address] | [place] [address] | [phone] | | HOSPITAL LABORATORY | | | [...] - 1.030 | [place] | | | [place] | | | COMMUNITY | | | [...] | + + + + + | [facility] | [address] | [place] [address] | [phone] | | HOSPITAL LABORATORY | | | | + + + + + Troponin I (05/04/2017 5:44 PM PDT) + +--------+ + + + | Component | Value | Ref Range | Performed | Pathologist | | | | | At | Signature | + +--------+ + + + | Troponin I | <0.017 | 0.000 - 0.090 | [facility] | | | | | ng/mL | [...] hours are at higher risk of or [place] at 48 | HOSPITAL | | hours [...] | + + + + + | [facility] | [address] | [place] [address] | [phone] | | HOSPITAL LABORATORY | | | [...] | + + + + + | [facility] | [address] | [place] [address] | [phone] | | HOSPITAL LABORATORY | | | [...] | + + + + + | [facility] | [address] | [place] [address] | [phone] | | HOSPITAL LABORATORY | | | [...] (H) | 5 - 26 mg/dL | [facility] | | | | | | [facility] | | | | | | HOSPITAL | | | | | | LABORATORY | | + + + + + + | Creatinine | 1.48 (H) | >.60-<1.30 | [facility] | | | | | mg/dL | [facility] | | | | | | [facility] | | | | | | LABORATORY | | + + + + + + | eGFR if not | 37 (L)Comment: | >=60 | [facility] [facility] | | | | GLOMERULAR FILTRATION | mL/min/1.73m2 | [facility] | | | STATELESS | RATE,ESTIMATED | | HOSPITAL | | | | mL/min/1.33b7Tndp than | | LABORATORY | | | [...] | + + + + + | [facility] | [address] | [place] [address] | [phone] | | HOSPITAL LABORATORY | | | [...] | + + + + + | [facility] | [address] | [place] [address] | [phone] | | HOSPITAL LABORATORY | | | [...] | | | | | NPO, Daytime 4583-7118 Use NIGHT | | | | | | | DOSE for doses scheduled: | | | | | | | HS, 3AM, Nighttime 4897-8477, | | | | | | + [...]
--- OUTSIDE RECORDS SUMMARY | ~2019-09-09 | XMS | Encounter Summary ---
Demographics + + + | Address | [address] | | | [place] [address] | + + + | Home Phone | | + + + | Preferred Language | Unknown | + + + | Marital Status | | + + + | Buddhism Affiliation | 1041 | + + + [...] Team Providers + +------+ + | Care Scientific Systems Analyst Name | Role | Phone | [...] + + | 11/12/ | Telephone | [facility] | Cornelio Edmond | Medication Question | | 2018 | | GASTROENTEROLOGY | MD [address] | (Protonix) | | | | [address] [place] | [address] [facility] | | | | | [address] [place], [place] | [place] [address] | | | | | [address] | [phone] | | | | | [phone] | | | +--------+ + + + [...]
--- OUTSIDE RECORDS SUMMARY | ~2019-09-09 | XMS | Encounter Summary ---
Demographics + + + | Address | [address] | | | [place] [address] | + + + | Home Phone | | + + + | Preferred Language | Unknown | + + + | Marital Status | | + + + | Sikh Affiliation | 1041 | + + + [...] Team Providers + +------+ + | Care Pipe Stem Repairer Name | Role | Phone | + [...] | | | | abdominal | PA-C [address] | [address] | | | | | pain | | [address] | | | | | Bloating | [address] | [address] [place] | | | | | [address]ating | [address] | [place], [place] | | | | | constipation | [place], | [address] | | | | | and | [place] [address] | Phone: | | | | | diarrhea | Phone: | [phone] | | | | | Procedures | [phone] | Fax: | | | | | Office Visit | Fax: | [phone] | | | | | | [phone] | | +--------+--------+ + + + + Encounter Details +--------+---------+ + + + | Date | Type | Department | Care Team | Description | +--------+---------+ + + + | 11/12/ | Office | [facility] | Cornelio Edmond | DIABETES MELLITUS, | | 2017 | Visit | GASTROENTEROLOGY | MD [address]bin [address] | WITH PERIPHERAL | | | | [address] | [address] [place] | NEUROPATHY (Primary | | | | [address] [place], [place] | [place] [address] | Dx); Chronic | | | | [address] | 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 Laxatives Your healthcare provider may suggest an csdg-lbh-jdrljdc product to help ease your constipa tion. He or she may suggest the use of bulk-forming agents or laxatives. The use of laxative s, if used as directed, is common and safe. Follow directions carefully when using them. See your healthcare provider for new-onset constipation, or long-term constipation,to rule ou t other causes such as medicines or thyroid disease. Date Last Reviewed: 03/30/201619998735-6585 [employer]. [address] [place] [address]. All righ ts reserved. This information is not intended as a substitute for professional medical care. Always follow your healthcare professional's instructions. documented in this encounter Progress Notes Cornelio Edmond MD - 11/12/2017 8:00 AM PST Outpatient Gastroenterology Consult Note Date of Office Visit: 11/12/17 Referring Provider: Kayla Núñez PA-C [address] [place] [address] Providing Physician: Cornelio Edmond MD. Chief Complaint: [...] 4 weeks (around 12/10/2017). CC: STEPH CastroC [id number] [employer] [address] LEAH [id number] [place] [address] Portions of this chart may have been created with [employer] voice recognition software. Occasi onal wrong-word or [...]
--- OUTSIDE RECORDS SUMMARY | ~2019-09-09 | XMS | Encounter Summary ---
Demographics + + + | Address | [address] | | | [place] [address] | + + + | Home Phone | | + + + | Preferred Language | Unknown | + + + | Marital Status | | + + + | Catholic Affiliation | 1041 | + + [...] Team Providers + +------+ + | Care Loom Overhauler Name | Role | Phone | + [...] | | | constipation | | [place] [address] | | | | | Type II or | | Phone: | | | | | unspecified | | [phone] | | | | | type | | Fax: | | | | | diabetes | | [phone] | | | | | mellitus | [...] | | | | | | | [place] | | | | | | | ESOPHAGOGAST | | | | | | | RODUODENOSCO | | | | | | | PY TRANSORAL | | | | | | | DIAGNOSTIC | | | | | | | W[place] EGD | | | | | | | TRANSORAL | | | | | | | BIOPSY | | | | | | | SINGLE/MULTI | | | | | | | PLE [place] | | | | | | | COLONOSCOPY | | | | | | | FLX DX | | | | | | | W/COLLJ SPEC | | | | | | | WHEN PFRMD | | | | | | | [place] | | | | | | | COLONOSCOPY | | | | | | | W/BIOPSY | | | | | | | SINGLE/MULTI | | | | | | | PLE [place] | | | | | | | COLSC FLX | | | | | | | W/RMVL OF | | | | | | | TUMOR POLYP | | | | | | | LESION SNARE | | | | | | | TQ [place] | | | | | | | [...] + + | 07/07/ | Hospital | [facility] | Cornelio Doe | Irritable bowel | | 2019 | Encounter | MED CTR MP INTRA OP | MD Corbin [address] | syndrome with | | | | [address] | [address] [place] | constipation; Early | | | | [place], [place] | [place] [address] | satiety; | | | | [address] | [phone] | Non-intractable | | | | [phone] | | cyclical vomiting | | | [...] Watch when you eat Avoid lying down [id number] after eating. Do not snack before going [...] and ibuprofen Stop smoking Date Last Reviewed: 03/30/201619993120-4845 The [employer]. [address] [place] [address]. All [facility] ts reserved. This information is not [...] heart rate Chest pain Date Last Reviewed: 02/28/201819998036-1253 [employer]. [address] [place] [address]. All righ ts reserved. This information is [...] uncontrolled(250.60) | | | | | | ([facility]) Early | | | | | | [...] uncontrolled(250.60) | | | | | | ([facility]) Early | | | | | | satiety | | | | | | Non-intractable | | | | | | cyclical vomiting | | | | | | with nausea | | | | | | Sedative dependence | | | | | | ([facility]) | | + +--------+ + + + [...] [address] | [place] | [phone] | | [facility] | | [address] | | | - LABORATORY | | | | + + + + + EGD (07/07/2019 8:07 AM PDT) + + | Specimen | + + | | + + + + ----+ | Narrative | Performed At | + + ----+ | | [facility] | | GastroenterologyPatient Name: Inocencia Mendez Date: 07/07/2019 | [facility] | | 8:07 AMMRN: [id number] #: [id number] of : | | | 1965Admit Type: AmbulatoryAge: 53Room: Endo Room 2Gender: | | | FemaleNote Status: FinalizedAttending MD: CORNELIO DOE , | | | MDProcedure: Upper GI endoscopyIndications: | | | Dysphagia, HeartburnProviders: CORNELIO DOE MD, | | | Celeste Paez RN, Shyla Baker | | | LAWRENCE Razo, Kayla Naranjo, Washhouse Worker, Chi | | | Obie TechnicianReferring MD: [...] of esophagus. | | | Biopsied. 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 Biopsied. - Z-line, 37 cm from [...] AMScope In: 8:22:49 AMScope Out: 8:32:39 AM [facility] | | | [facility], [address] [place] [address] | | | [phone] | | | - Normal duodenal bulb [...] |Scope Out: 8:32:39 AM | | | [facility], [address] [place] [address] | | | [address] | | + + ----+ + +---------+ [...] 07/07/2019 | [facility] | | 7:56 AMMRN: [id number] #: [id number] of : | | | 1965Admit Type: AmbulatoryAge: 53Room: Endo Room 2Gender: | | | FemaleNote Status: FinalizedAttending MD: CORNELIO DOE , | | | MDProcedure: ColonoscopyIndications: Screening | | | for colorectal malignant neoplasm, Incidental | | | constipation notedProviders: CORNELIO DOE MD, | | | Celeste Paez RN, Shyla Baker | | | LAWRENCE Razo, Kayla Naranjo, Washhouse Worker, Chi | | | Obie, TechnicianReferring MD: [...] | preparation was evaluated using the BBPS ([place] Bowel | | | Preparation Scale) with [...] | | 8:34:42 AMScope Out: 8:47:10 AM [facility] | | | [place], [address] [place] [address] | | | - No specimens collected. [...] |Scope Out: 8:47:10 AM | | | [facility], [address] [place] [address] | | | [address] | | + + -+ + +---------+ [...] | | metaplasia, negative for definite dysplasia. JVR:[facility]:C2NR | | | GROSS DESCRIPTION: Three [...] component was | | | performed by [facility], [address] [place] [address] | | | (Washhouse Worker: Anu Shukla MD; CLIA# [id number]). Professional | | | interpretation was performed by [facility] [place] | | | [facility], [address] [place] [address] | | | [address] (Washhouse Worker: Zackery Rubi M.D.). Diagnostician: | | | Zackery Rubi MD Pathologist Electronically Signed 07/08/2019 | | | | | + + + + +---------+ + + | Performing | Address | City/State[facility] | Phone Number | | Organization | | | | + +---------+ + + | [facility] | | | | | [place] | | | | + +---------+ + [...] manifestations, not | | stated as uncontrolled(250.60) ([facility]) Type II or unspecified type diabetes mellitus [...]
--- OUTSIDE RECORDS SUMMARY | ~2019-09-09 | XMS | Encounter Summary ---
Demographics + + + | Address | [address] | | | [place] [address] | + + + | Home Phone | | + + + | Preferred Language | Unknown | + + + | Marital Status | | + + + | Yarsanism Affiliation | 1041 | + + + [...] Team Providers + +------+ + | Care Chemistry Technician Name | Role | Phone | [...] unspecified | MD Corbin | [address] | | | | | type | [address] | [employer], | | | | | diabetes | [address] [place] | [place] | | | | | mellitus | [place], [place] | [address] | | | | | with | [address] | Phone: | | | | | neurological | Phone: | [phone] | | | | | | [phone] | Fax: | | | | | manifestatio | Fax: | [phone] | | | | | ns, not | [phone] | | | | | | stated [...] + + | 06/18/ | Hospital | [facility] | Cornelio Edmond | | | 2019 | Encounter | MED CTR NUCLEAR | MD [address] | | | | | MEDICINE [address] [place] | | | | | [place] [employer], | [place] [address] | | | | | [place] [address] | [phone] | | | | | [phone] | | | +--------+ + + + [...]
--- OUTSIDE RECORDS SUMMARY | ~2019-09-09 | XMS | Encounter Summary ---
Demographics + + + | Address | [address] | | | [place] [address] | + + + | Home Phone | | + + + | Preferred Language | Unknown | + + + | Marital Status | | + + + | Christian Affiliation | 1041 | + + + | Race | Unknown | + + + | Ethnic Group | Unknown | + + + Author + + + | Author | [facility] | | | and [place] | + + + | Organization | [facility] | [...] Team Providers + +------+ + | Care Molder Sweep Name | Role | Phone | + [...] | | | constipation | | [place] [address] | | | | | Type II or | | Phone: | | | | | unspecified | | [phone] | | | | | type | | Fax: | | | | | diabetes | | [phone] | | | | | mellitus | [...] | | | | | | NM | | | | | | | ESOPHAGOGAST | | | | | | | RODUODENOSCO | | | | | | | PY TRANSORAL | | | | | | | DIAGNOSTIC | | | | | | | NM EGD | | | | | | | TRANSORAL | | | | | | | BIOPSY | | | | | | | SINGLE/MULTI | | | | | | | PLE NM | | | | | | | COLONOSCOPY | | | | | | | FLX DX | | | | | | | W/COLLJ SPEC | | | | | | | WHEN PFRMD | | | | | | | NM | | | | | | | COLONOSCOPY | | | | | | | W/BIOPSY | | | | | | | SINGLE/MULTI | | | | | | | PLE NM | | | | | | | COLSC FLX | | | | | | | W/RMVL OF | | | | | | | TUMOR POLYP | | | | | | | LESION SNARE | | | | | | | TQ NM | | | | | | | [...] | | | | | [address] | [address] | | | | | [place] | [place] [address] | | | | | [address] | [phone] | | | | | [phone] | | | +--------+---------+ + + + [...] Watch when you eat Avoid lying down [id number] after eating. Do not snack before going [...] and ibuprofen Stop smoking Date Last Reviewed: 03/30/201619997245-3361 [employer] [address] [place] [address], [place] [address]. All righ ts reserved. This information is [...] heart rate Chest pain Date Last Reviewed: 02/28/201819998636-8425 [employer] [address] [place] [address]. All righ ts reserved. This information is [...] uncontrolled(250.60) | | | | | | ([facility]) Early | | | | | | satiety | | | | | | Non-intractable | | | | | | cyclical vomiting | | | | | | with nausea | | | | | | Sedative dependence | | | | | | ([facility]) | | + +--------+ + + [...] uncontrolled(250.60) | | | | | | ([facility]) Early | | | | | | satiety | | | | | | Non-intractable | | | | | | cyclical vomiting | | | | | | with nausea | | | | | | Sedative dependence | | | | | | ([facility]) | | + +--------+ + + [...] [address] | [place] | [phone] | | [facility] | | [address] | | | - LABORATORY | | | | + + + + + EGD (07/07/2019 8:07 AM PDT) + + | Specimen | + + | | + + + + ----+ | Narrative | Performed At | + + ----+ | | [facility] | | GastroenterologyPatient Name: Inocencia ChavezPatsy Date: 07/07/2019 | [place] | | 8:07 AMMRN: [id number] #: [id number] of : | | | 1965Admit Type: AmbulatoryAge: 53Room: Endo Room 2Gender: | | | FemaleNote Status: FinalizedAttending MD: CORNELIO DOE , | | | MDProcedure: Upper GI endoscopyIndications: | | | Dysphagia, HeartburnProviders: CORNELIO DOE MD, | | | Celeste Paez RN, Shyla Baker | | | LAWRENCE Razo, Kayla Naranjo, Electronic Organ Mechanic, Chi | | | Obie TechnicianReferring MD: [...] of esophagus. | | | Biopsied. - [place]-colored mucosa classified as Demarco's stage | | | C0-M1 per [place] criteria. Biopsied. - Z-line, 37 cm from [...] AMScope In: 8:22:49 AMScope Out: 8:32:39 AM [facility] | | | [facility], [address] [place] [address] | | | [phone] | | | - Normal duodenal bulb [...] |Scope Out: 8:32:39 AM | | | [facility], [address] [place] [address] | | | [address] | | + + ----+ + +---------+ [...] 07/07/2019 | [facility] | | 7:56 AMMRN: [id number] #: [id number] of : | | | 1965Admit Type: AmbulatoryAge: 53Room: Endo Room 2Gender: | | | FemaleNote Status: FinalizedAttending MD: CORNELIO DOE , | | | MDProcedure: ColonoscopyIndications: Screening | | | for colorectal malignant neoplasm, Incidental | | | constipation notedProviders: CORNELIO DOE MD, | | | Celeste Paez RN, Shyla Baker | | | LAWRENCE Razo, Kayla Naranjo, Electronic Organ Mechanic, Chi | | | Obie TechnicianReferring MD: [...] | preparation was evaluated using the BBPS ([place] Bowel | | | Preparation Scale) with [...] | | 8:34:42 AMScope Out: 8:47:10 AM [facility] | | | [place], [address] [place] [address] | | | - No specimens collected. [...] |Scope Out: 8:47:10 AM | | | [facility], [address] [place] [address] | | | [address] | | + + -+ + +---------+ + + | Performing | Address | City/State/[facility] Servicescode | Phone Number | | Organization | [...] | | metaplasia, negative for definite dysplasia. JVR:[facility]:C2NR | | | GROSS DESCRIPTION: Three specimens [...] component was | | | performed by [employer], [address] [place] [address] | | | (Foaming Machine Operator: Anu Shukla MD; CLIA# [id number]). Professional | | | interpretation was performed by [facility] | | | [address] | | | [address] (Foaming Machine Operator: Zackery Rubi M.D.). 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
--- OUTSIDE RECORDS SUMMARY | ~2019-09-09 | XMS | Encounter Summary ---
Demographics + + + | Address | [address] | | | [place] [address] | + + + | Home Phone | | + + + | Preferred Language | Unknown | + + + | Marital Status | | + + + | Advent Affiliation | 1041 | + + + | Race | Unknown | + + + | Ethnic Group | Unknown | + + + Author + + + | Author | [facility] | | | and [place] | + + + | Organization | [facility] | | [...] Team Providers + +------+ + | Care Ammunition Assembly I Laborer Name | Role | Phone | + +------+ + PCP | Unavailable | + +------+ + Encounter Details +--------+ + + + + | Date | Type | Department | Care Team | Description | +--------+ + + + + | 07/24/ | Hospital | [facility] | Conversion | | | 1994 - | Encounter | SYSTEM GENERIC OP | Transaction, | | | | | CONVERSION [address] | Provider Unknown | | | 10/19/ | | [address] [place], [place] | [phone] | | | 1995 | | [address] | | | | | | [phone] | | | +--------+ + + + [...]
--- OUTSIDE RECORDS SUMMARY | ~2019-09-09 | XMS | Encounter Summary ---
Demographics + + + | Address | [address] | | | [place] [address] | + + + | Home Phone | | + + + | Preferred Language | Unknown | + + + | Marital Status | | + + + | Cheondoism Affiliation | 1041 | + + + | Race | Unknown | + + + | Ethnic Group | Unknown | + + + Author + + + | Author | [facility] | | | and [place] | + + + | Organization | [facility] | | | and [...] Team Providers + +------+ + | Care Hair Cutter Name | Role | Phone | + +------+ + | Kayla Núñez PA-C | PCP | | + +------+ + Encounter Details +--------+ + + + + | Date | Type | Department | Care Team | Description | +--------+ + + + + | 05/15/ | Orders Only | [facility] | Dimitrios Paniagua MD [address] | Other muscle spasm | | 2019 | | NEUROLOGY [address] | [address] | | | | | [address] | [address], | | | | | [place], [place] | [place] [address] | | | | | [address] | [phone] | | | | | [phone] | | | +--------+ + + + [...]
--- OUTSIDE RECORDS SUMMARY | ~2019-09-09 | XMS | Clinical Summary ---
Demographics + + + | Address | [address] | | | [place] [address] | + + + | Home Phone | | + + + | Preferred Language | Unknown | + + + | Marital Status | | + + + | Presybeterian Affiliation | 1041 | + + + [...] Team Providers + +------+ + | Care Scroll Assembler Name | Role | Phone | [...] automatically from request for surgery | | [id number] | + + + + + | Early satiety | 07/01/2019 | + + + + + | Overview: Added automatically from request for surgery | | [id number] | + + + + + | Non-intractable cyclical vomiting with nausea | 07/01/2019 | + + + + + | Overview: Added automatically from request for surgery | | [id number] | + + + + + | Sedative dependence | 07/01/2019 | + + + + + | Overview: Added automatically from request for surgery | | [id number] | + + + + + | [...] dependence | | | | | | ([facility]); Special | | | | | | [...] dependence | | | | | | ([facility]) | | + +--------+ + + + [...] uncontrolled(250.60) | | | | | | ([facility]) Early | | | | | | satiety | | | | | | Non-intractable | | | | | | cyclical vomiting | | | | | | with nausea | | | | | | Sedative dependence | | | | | | ([facility]) | | + +--------+ + + + [...] + | [facility] | [address] | [place] | [phone] | | [facility] | | [address] | | | - LABORATORY | | | | + + + + + EGD (07/07/2019 8:07 AM PDT) + + | Specimen | + + | | + + + + ----+ | Narrative | Performed At | + + ----+ | | [facility] | | GastroenterologyPatient Name: Inocencia Mendez Date: 07/07/2019 | [place] | | 8:07 AMMRN: [id number] #: [id number] of : | | | 1965Admit Type: AmbulatoryAge: 53Room: Endo Room 2Gender: | | | FemaleNote Status: FinalizedAttending MD: CORNELIO DOE , | | | MDProcedure: Upper GI endoscopyIndications: | | | Dysphagia, HeartburnProviders: CORNELIO DOE MD, | | | Celeste Paez RN, Shyla Baker | | | LAWRENCE Razo, Kayla Naranjo, Cold Food Packer, Chi | | | Obie, TechnicianReferring MD: [...] of esophagus. | | | Biopsied. - [place]-colored mucosa classified as Demarco's stage | | | C0-M1 per [place] criteria. Biopsied. - Z-line, 37 cm from [...] AMScope In: 8:22:49 AMScope Out: 8:32:39 AM [facility] | | | [facility], [address] [place] [address] | | | [phone] | | | - Normal duodenal bulb [...] |Scope Out: 8:32:39 AM | | | [facility], [address] [place] [address] | | | [address] | | + + ----+ + +---------+ [...] 07/07/2019 | [place] | | 7:56 AMMRN: [id number] #: [id number] of : | | | 1965Admit Type: AmbulatoryAge: 53Room: Endo Room 2Gender: | | | FemaleNote Status: FinalizedAttending MD: CORNELIO DOE , | | | MDProcedure: ColonoscopyIndications: Screening | | | for colorectal malignant neoplasm, Incidental | | | constipation notedProviders: CORNELIO DOE MD, | | | Celeste Paez RN, Shyla Baker | | | LAWRENCE Razo, Kayla Naranjo, Cold Food Packer, Chi | | | Obie TechnicianReferring MD: [...] | preparation was evaluated using the BBPS ([place] Bowel | | | Preparation Scale) with [...] | | 8:34:42 AMScope Out: 8:47:10 AM [facility] | | | [facility], [address] [place] [address] | | | - No specimens collected. [...] |Scope Out: 8:47:10 AM | | | [facility], [address] [place] [address] | | | [address] | | + + -+ + +---------+ [...] | | metaplasia, negative for definite dysplasia. JVR:[facility]:C2NR | | | GROSS DESCRIPTION: Three specimens [...] component was | | | performed by [employer], [address] [place] [address] | | | (Fabricator Industrial Furnace: Anu Shukla MD; CLIA# [id number]). Professional | | | interpretation was performed by [facility] | | | [facility], [address] [place] [address] | | | [address] (Fabricator Industrial Furnace: Zackery Rubi M.D.). Diagnostician: | | | Zackery Rubi MD Pathologist Electronically Signed 07/08/2019 | | | | | + + + + +---------+ + + | Performing | Address | City/State/[facility] Centercode | Phone Number | | Organization | | | | + +---------+ + + | [facility] | | | | | INCConsult A Doctor | | | | + +---------+ + [...] | Procedure Note | + + | Iynka, Rad Results In - 06/18/2019 1:06 PM [...] +--------+ +--------+-------+---------+--------+ | BCBS | BCBS | [id number] | 01/30/20 | | | PPO | | | FEDERA | | 16-Pre | | | | | | L FEP | | sent | | | | + +--------+ +--------+-------+---------+--------+ | BCBS | BCBS | [id number] | 01/30/20 | | | PPO | | | FEDERA | | 16-Pre | | | | | | L FEP | | sent | | | | + +--------+ +--------+-------+---------+--------+ | [facility] | IHS | [id number] | 10/31/19 | | | Indemn | [...] Person | Self | [birth year] | [address] | | | al/Fam | | 1965 | [phone] | [place] [address] | | | [place]baro | | | 0 (Home) | | + +--------+ +--------+ + + | Inocencia Chavez | Person | Self | [birth year] | [address] | | | al/Fam | | 1965 | [phone] | [place] [address] | | | [place]o | | | 0 (Home) | | | | | | | [phone] | | | | | | | 0 (Work) | | + +--------+ +--------+ + + | HemaInocencia larose | Person | Self | [birth year] | | [address] | | | al/Po | | 1965 | [phone] | [place] [address] | | | [place] | | | 0 (Home) | | + +--------+ +--------+ + + Advance Directives + + + + + | Type | Date Recorded | Patient | Explanation | | | | Conference Service Coordinator | | + + + + + [...]
--- OUTSIDE RECORDS SUMMARY | ~2019-09-09 | XMS | Encounter Summary ---
Demographics + + + | Address | [address] | | | [place] [address] | + + + | Home Phone | | + + + | Preferred Language | Unknown | + + + | Marital Status | | + + + | Faith Affiliation | 1041 | + + + | Race | Unknown | + + + | Ethnic Group | Unknown | + + + Author + + + | Author | [facility] | | | and [place] | + + + | Organization | [facility] | | [...] Team Providers + +------+ + | Care Lead Software Tester Name | Role | Phone | + [...] 2018 | | GASTROENTEROLOGY | [address], [place] | | | | | [address] [place] | [address] [place], [place] | | | | | [address] [place], [place] | [address] | | | | | [address] | | | | | | [phone] | | | +--------+ + + + [...] - 1.03 | EXTERNAL | | | [place], | | | LAB | | | [...]
--- OUTSIDE RECORDS SUMMARY | ~2019-09-09 | XMS | Encounter Summary ---
Demographics + + + | Address | [address] | | | [place] [address] | + + + | Home Phone | | + + + | Preferred Language | Unknown | + + + | Marital Status | | + + + | Amish Affiliation | 1041 | + + + | Race | Unknown | + + + | Ethnic Group | Unknown | + + + Author + + + | Author | [facility] | | | and [place] | + + + | Organization | [facility] | | [...] Team Providers + +------+ + | Care Home Assessment Nurse Name | Role | Phone | + +------+ + PCP | Unavailable | + +------+ + Encounter Details +--------+ + + + + | Date | Type | Department | Care Team | Description | +--------+ + + + + | 07/24/ | Hospital | [facility] | Conversion | | | 1994 - | Encounter | SYSTEM GENERIC OP | Transaction, | | | | | CONVERSION [address] | Provider Unknown | | | 10/19/ | | [address] [place], [place] | [phone] | | | 1995 | | [address] | | | | | | [phone] | | | +--------+ + + + [...]
--- OUTSIDE RECORDS SUMMARY | ~2019-09-09 | XMS | Encounter Summary ---
Demographics + + + | Address | [address] | | | [place] [address] | + + + | Home Phone | | + + + | Preferred Language | Unknown | + + + | Marital Status | | + + + | Temple Affiliation | 1041 | + + + | Race | Unknown | + + + | Ethnic Group | Unknown | + + + Author + + + | Author | [facility] | | | and [place] | + + + | Organization | [facility] | | [...] + +------+ + | Care Director Of Music Therapy Name | Role | Phone | + [...] | | | constipation | | [place] [address] | | | | | Type II or | | Phone: | | | | | unspecified | | [phone] | | | | | type | | Fax: | | | | | diabetes | | [phone] | | | | | mellitus | [...] | | | | | | | [place] | | | | | | | ESOPHAGOGAST | | | | | | | RODUODENOSCO | | | | | | | PY TRANSORAL | | | | | | | DIAGNOSTIC | | | | | | | UT EGD | | | | | | | TRANSORAL | | | | | | | BIOPSY | | | | | | | SINGLE/MULTI | | | | | | | PLE UT | | | | | | | COLONOSCOPY | | | | | | | FLX DX | | | | | | | W/COLLJ SPEC | | | | | | | WHEN PFRMD | | | | | | | UT | | | | | | | COLONOSCOPY | | | | | | | W/BIOPSY | | | | | | | SINGLE/MULTI | | | | | | | PLE UT | | | | | | | COLSC FLX | | | | | | | W/RMVL OF | | | | | | | TUMOR POLYP | | | | | | | LESION SNARE | | | | | | | TQ UT | | | | | | | [...] + + | 07/07/ | Hospital | [facility] | Cornelio Doe | Irritable bowel | | 2019 | Encounter | MED CTR MP INTRA OP | MD Corbin [address] | syndrome with | | | | [address] | [address] [place] | constipation; Early | | | | [place], [place] | [place] [address] | satiety; | | | | [address] | [phone] | Non-intractable | | | | [phone] | | cyclical vomiting | | | [...] Watch when you eat Avoid lying down [id number] after eating. Do not snack before going [...] and ibuprofen Stop smoking Date Last Reviewed: 03/30/201619998682-[address] [employer] [address] [place] [address]. All [facility] ts reserved. This information is not [...] heart rate Chest pain Date Last Reviewed: 02/28/201819992762-[address] [employer] [place] [address]. All righ ts reserved. This information is [...] | | | | | ([facility]) Early | | | | | | [...] | | | | | ([facility]) Early | | | | | | satiety | | | | | | Non-intractable | | | | | | cyclical vomiting | | | | | | with nausea | | | | | | Sedative dependence | | | | | | ([facility]) | | + +--------+ + + + [...] [address] | [place] | [phone] | | [facility] | | [address] | | | - LABORATORY | | | | + + + + + EGD (07/07/2019 8:07 AM PDT) + + | Specimen | + + | | + + + + ----+ | Narrative | Performed At | + + ----+ | | [facility] | | GastroenterologyPatient Name: Inocencia Mendez Date: 07/07/2019 | [place] | | 8:07 AMMRN: [id number] #: [id number] of : | | | 1965Admit Type: AmbulatoryAge: 53Room: Endo Room 2Gender: | | | FemaleNote Status: FinalizedAttending MD: CORNELIO DOE , | | | MDProcedure: Upper GI endoscopyIndications: | | | Dysphagia, HeartburnProviders: CORNELIO DOE MD, | | | Celeste Paez RN, Shyla Baker | | | LAWRENCE Razo, Kayla Naranjo, Electricians Top Helper, Chi | | | Obie TechnicianReferring MD: [...] of esophagus. | | | Biopsied. - [place]-colored mucosa classified as Demarco's stage | | | C0-M1 per [place] criteria. Biopsied. - Z-line, 37 cm [...] AMScope In: 8:22:49 AMScope Out: 8:32:39 AM [facility] | | | [facility], [address] [place] [address] | | | [phone] | | | - Normal duodenal bulb [...] |Scope Out: 8:32:39 AM | | | [facility], [address] [place] [address] | | | [address] | | + + ----+ + +---------+ [...] 07/07/2019 | [facility] | | 7:56 AMMRN: [id number] #: [id number] of : | | | 1965Admit Type: AmbulatoryAge: 53Room: Endo Room 2Gender: | | | FemaleNote Status: FinalizedAttending MD: CORNELIO DOE , | | | MDProcedure: ColonoscopyIndications: Screening | | | for colorectal malignant neoplasm, Incidental | | | constipation notedProviders: CORNELIO DOE MD, | | | Celeste Paez RN, Shyla Baker | | | LAWRENCE Razo, Kayla Naranjo, Electricians Top Helper, Chi | | | Obie, TechnicianReferring MD: [...] | preparation was evaluated using the BBPS ([place] Bowel | | | Preparation Scale) with [...] | | 8:34:42 AMScope Out: 8:47:10 AM [facility] | | | [place], [address] [place] [address] | | | - No specimens collected. [...] |Scope Out: 8:47:10 AM | | | [facility], [address] [place] [address] | | | [address] | | + + -+ + +---------+ [...] | | metaplasia, negative for definite dysplasia. JVR:[facility]:C2NR | | | GROSS DESCRIPTION: [...] component was | | | performed by [facility], [address] [place] [address] | | | (Truck Assembler: Anu Shukla MD; CLIA# [id number]). Professional | | | interpretation was performed by [facility] | | | [facility], [address] [place] [address] | | | [address] (Truck Assembler: Zackery Rubi M.D.). Diagnostician: | | | Zackery Rubi MD Pathologist Electronically Signed 07/08/2019 | | | | | + + + + +---------+ + + | Performing | Address | City/State/[facility] Centercode | Phone Number | | Organization | | | | + +---------+ + + | [facility] | | | | | [employer] | | | | + +---------+ + [...] manifestations, not | | stated as uncontrolled(250.60) ([facility]) Type II or unspecified type diabetes mellitus [...]
--- OUTSIDE RECORDS SUMMARY | ~2019-09-09 | XMS | Encounter Summary ---
Demographics + + + | Address | [address] | | | [place] [address] | + + + | Home Phone | | + + + | Preferred Language | Unknown | + + + | Marital Status | | + + + | Anabaptism Affiliation | 1041 | + + + | Race | Unknown | + + + | Ethnic Group | Unknown | + + + Author + + + | Author | [facility] | | | and [place] | + + + | Organization | [facility] | | | [...] Team Providers + +------+ + | Care Gas Engine Operator Name | Role | Phone | + +------+ + PCP | Unavailable | + +------+ + Encounter Details +--------+ + + + + | Date | Type | Department | Care Team | Description | +--------+ + + + + | 02/13/ | Hospital | [facility] | | | | 1994 | Encounter | SYSTEM RADIOLOGY | | | | | | CONVERSION [address] | | | | | | [address] [place], [place] | | | | | | [address] | | | | | | [phone] | | | +--------+ + + + [...]
--- OUTSIDE RECORDS SUMMARY | ~2019-09-09 | XMS | Encounter Summary ---
Demographics + + + | Address | [address] | | | [place] [address] | + + + | Home Phone | | + + + | Preferred Language | Unknown | + + + | Marital Status | | + + + | Buddhist Affiliation | 1041 | + + + [...] Team Providers + +------+ + | Care Surgeon Assistant Name | Role | Phone | [...] | constipation | | | | [address] [place], [place] | [place] [address] | | | | | [address] | [phone] | | | | | [phone] | | | +--------+ + + + [...]
--- OUTSIDE RECORDS SUMMARY | ~2019-09-09 | XMS | Encounter Summary ---
Demographics + + + | Address | [address] | | | [place] [address] | + + + | Home Phone | | + + + | Preferred Language | Unknown | + + + | Marital Status | | + + + | Cheondoism Affiliation | 1041 | + + + | Race | Unknown | + + + | Ethnic Group | Unknown | + + + Author + + + | Author | [facility] | | | and [place] | + + + | Organization | [facility] | | [...] Team Providers + +------+ + | Care Laryngologist Name | Role | Phone | + [...] + + | 06/04/ | Telephone | [facility] | Cornelio Edmond | Imaging Only ([facility] | | 2019 | | GASTROENTEROLOGY | MD [address] | scheduled) | | | | [address] [place] | [address] [place] | | | | | [address] [place] | [place] [place] [address] | | | | | [address] | [phone] | | | | | [phone] | | | +--------+ + + + [...]
--- OUTSIDE RECORDS SUMMARY | ~2019-09-09 | XMS | Encounter Summary ---
Demographics + + + | Address | [address] | | | [place] [address] | + + + | Home Phone | | + + + | Preferred Language | Unknown | + + + | Marital Status | | + + + | Lutheran Affiliation | 1041 | + + + | Race | Unknown | + + + | Ethnic Group | Unknown | + + + Author + + + | Author | [facility] | | | and [place] | + + + | Organization | [facility] | | | [...] Team Providers + +------+ + | Care Video System Repairer Name | Role | Phone | [...] unspecified | MD Corbin | [address] | | | | | type | [address] | [place], | | | | | diabetes | [place] | [place] | | | | | mellitus | [place], [place] | [address] | | | | | with | [address] | Phone: | | | | | neurological | Phone: | [phone] | | | | | | [phone] | Fax: | | | | | manifestatio | Fax: | [phone] | | | | | ns, not | [phone] | | | | | | stated [...] | 06/18/ | Hospital | [facility] | Cornelio Edmond | | | 2019 | Encounter | MED CTR NUCLEAR | MD Corbin [address] | | | | | MEDICINE [address] [place] | | | | | [place], | [place] [address] | | | | | [place] [address] | [phone] | | | | | [phone] | | | +--------+ + + + [...]
--- OUTSIDE RECORDS SUMMARY | ~2019-09-09 | XMS | Encounter Summary ---
Demographics + + + | Address | [address] | | | [place] [address] | + + + | Home Phone | | + + + | Preferred Language | Unknown | + + + | Marital Status | | + + + | Muslim Affiliation | 1041 | + + + | Race | Unknown | + + + | Ethnic Group | Unknown | + + + Author + + + | Author | [facility] | | | and [place] | + + + | Organization | [facility] | | | [...] Team Providers + +------+ + | Care Administrative Manager Name | Role | Phone | [...] unspecified | MD Corbin | [address] | | | | | type | [address] | [place], | | | | | diabetes | [place] | [place] | | | | | mellitus | [place], [place] | [address] | | | | | with | [address] | Phone: | | | | | neurological | Phone: | [phone] | | | | | | [phone] | Fax: | | | | | manifestatio | Fax: | [phone] | | | | | ns, not | [phone] | | | | | | stated [...] + + | 06/18/ | Hospital | [facility] | Cornelio Edmond | | | 2019 | Encounter | MED CTR NUCLEAR | MD Corbin [address] | | | | | MEDICINE [address] [place] | | | | | [place], | [place] [address] | | | | | [place] [address] | [phone] | | | | | [phone] | | | +--------+ + + + [...]
--- OUTSIDE RECORDS SUMMARY | ~2019-09-09 | XMS | Encounter Summary ---
Demographics + + + | Address | [address] | | | [place] [address] | + + + | Home Phone | | + + + | Preferred Language | Unknown | + + + | Marital Status | | + + + | Denominational Affiliation | 1041 | + + + | Race | Unknown | + + + | Ethnic Group | Unknown | + + + Author + + + | Author | [facility] | | | and [place] | + + + | Organization | [facility] | | [...] Team Providers + +------+ + | Care Supervisor Prepress Name | Role | Phone | + [...] | | | | abdominal | PA-C [address] | MD [address] | | | | | pain R14.0 | | [address] | | | | | (ICD-10-CM) | [address] | [place], | | | | | [address] | [place] [address] | | | | | (ICD-9-CM) - | [place], | Phone: | | | | | [place] | [place] [address] | [phone] | | | | | R19.8 | Phone: | Fax: | | | | | (ICD-10-CM) | [phone] | [phone] | | | | | - 787.61 | Fax: | | | | | | (ICD-9-CM) - | [phone] | | | | | | Alternating [...] + + | 12/09/ | Office | [facility] | Cornelio Edmond | Gastroesophageal | | 2018 | Visit | GASTROENTEROLOGY | MD Corbin [address] | reflux disease | | | | [address] [place] | [address] [place] | without esophagitis | | | | [address] [place] | [place] [address] | (Primary Dx); | | | | [address] | [phone] | Chronic idiopathic | | | | [phone] | | constipation | +--------+---------+ + + [...] or fail to improve. CC: STEPH CastroC [id number] [place] [address] LEAH [id number] [place] [address] Portions of this chart may have been created with [employer] voice recognition software. Occasi onal wrong-word or [...]
--- OUTSIDE RECORDS SUMMARY | ~2019-09-09 | XMS | Encounter Summary ---
Demographics + + + | Address | [address] | | | [place] [address] | + + + | Home Phone | | + + + | Preferred Language | Unknown | + + + | Marital Status | | + + + | Latter-Day Affiliation | 1041 | + + + | Race | Unknown | + + + | Ethnic Group | Unknown | + + + Author + + + | Author | [facility] | | | and [place] | + + + | Organization | [facility] | | [...] Team Providers + +------+ + | Care Historiographer Name | Role | Phone | + [...] | constipation | | | | [address] [place], [place] | [place] [address] | | | | | [address] | [phone] | | | | | [phone] | | | +--------+ + + + [...]
--- OUTSIDE RECORDS SUMMARY | ~2019-09-09 | XMS | Encounter Summary ---
Demographics + + + | Address | [address] | | | [place] [address] | + + + | Home Phone | | + + + | Preferred Language | Unknown | + + + | Marital Status | | + + + | Gnosticism Affiliation | 1041 | + + + | Race | Unknown | + + + | Ethnic Group | Unknown | + + + Author + + + | Author | [facility] | | | and [place] | + + + | Organization | [facility] | | [...] Team Providers + +------+ + | Care Glove Former Name | Role | Phone | + +------+ + PCP | Unavailable | + +------+ + Encounter Details +--------+ + + + + | Date | Type | Department | Care Team | Description | +--------+ + + + + | 02/13/ | Hospital | [facility] | | | | 1994 | Encounter | SYSTEM RADIOLOGY | | | | | | CONVERSION [address] | | | | | | [address] [place], [place] | | | | | | [address] | | | | | | [phone] | | | +--------+ + + + [...]
--- OUTSIDE RECORDS SUMMARY | ~2019-09-09 | XMS | Encounter Summary ---
Demographics + + + | Address | [address] | | | [place] [address] | + + + | Home Phone [...] + +------+ + | Care Director Of Placement Name | Role | Phone | + [...] | | | constipation | | [place] [address] | | | | | Type II or | | Phone: | | | | | unspecified | | [phone] | | | | | type | | Fax: | | | | | diabetes | | [phone] | | | | | mellitus | [...] | | | | | | | [place] | | | | | | | ESOPHAGOGAST | | | | | | | RODUODENOSCO | | | | | | | PY TRANSORAL | | | | | | | DIAGNOSTIC | | | | | | | [place] EGD | | | | | | | TRANSORAL | | | | | | | BIOPSY | | | | | | | SINGLE/MULTI | | | | | | | PLE [place] | | | | | | | COLONOSCOPY | | | | | | | FLX DX | | | | | | | W/COLLJ SPEC | | | | | | | WHEN PFRMD | | | | | | | [place] | | | | | | | COLONOSCOPY | | | | | | | W/BIOPSY | | | | | | | SINGLE/MULTI | | | | | | | PLE [place] | | | | | | | COLSC FLX | | | | | | | W/RMVL OF | | | | | | | TUMOR POLYP | | | | | | | LESION SNARE | | | | | | | TQ [place] | | | | | | | [...] | | | | | [address] | [address] [place] | | | | | [place] | [place] [address] | | | | | [address] | [phone] | | | | | [phone] | | | +--------+ + + + [...] | 07/07/19947 by | | eral | [id number] catheter system; | Cl Barbour RN | [...]
--- OUTSIDE RECORDS SUMMARY | ~2019-09-09 | XMS | Encounter Summary ---
Demographics + + + | Address | [address] | | | [place] [address] | + + + | Home Phone [...] Team Providers + +------+ + | Care Morning News Producer Name | Role | Phone | + [...] + + | 06/22/ | Telephone | [facility] | Cornelio Edmond | Results, Imaging | | 2019 | | GASTROENTEROLOGY | MD Corbin [address] | | | | | [address] [place] | [address] [place] | | | | | [address] [place], [place] | [place] [address] | | | | | [address] | [phone] | | | | | [phone] | | | +--------+ + + + [...]
--- OUTSIDE RECORDS SUMMARY | ~2019-09-09 | XMS | Encounter Summary ---
Demographics + + + | Address | [address] | | | [place] [address] | + + + | Home Phone [...] Team Providers + +------+ + | Care Computerized Mill Mill Recorder Name | Role | Phone | + [...] unspecified | MD Corbin | [address] | | | | | type | [address] | [place], | | | | | diabetes | [place] | [place] | | | | | mellitus | [place], [place] | [address] | | | | | with | [address] | Phone: | | | | | neurological | Phone: | [phone] | | | | | | [phone] | Fax: | | | | | manifestatio | Fax: | [phone] | | | | | ns, not | [phone] | | | | | | stated [...] | 06/18/ | Hospital | [facility] | Cornelio Edmond | | | 2019 | Encounter | MED CTR NUCLEAR | MD Corbin [address] | | | | | MEDICINE [address] [place] | | | | | [place], | [place] [address] | | | | | [place] [address] | [phone] | | | | | [phone] | | | +--------+ + + + [...]
--- OUTSIDE RECORDS SUMMARY | ~2019-09-09 | XMS | Encounter Summary ---
Demographics + + + | Address | [address] | | | [place] [address] | + + + | Home Phone | | + + + | Preferred Language | Unknown | + + + | Marital Status | | + + + | Pentecostalism Affiliation | 1041 | + + + | Race | Unknown | + + + | Ethnic Group | Unknown | + + + Author + + + | Author | [facility] | | | and [place] | + + + | Organization | [facility] | | | [...] Team Providers + +------+ + | Care Monotyper Name | Role | Phone | + +------+ + | Kyala Núñez PA-C | PCP | | + [...] unspecified | MD Corbin | [address] | | | | | type | [address] | [place], | | | | | diabetes | [place] | [place] | | | | | mellitus | [place], [place] | [address] | | | | | with | [address] | Phone: | | | | | neurological | Phone: | [phone] | | | | | | [phone] | Fax: | | | | | manifestatio | Fax: | [phone] | | | | | ns, not | [phone] | | | | | | stated [...] 06/18/ | Hospital | [facility] | Cornelio Edmond | | | 2019 | Encounter | MED CTR NUCLEAR | MD Corbin [address] | | | | | MEDICINE [address] [place] | | | | | [place], | [place] [address] | | | | | [place] [address] | [phone] | | | | | [phone] | | | +--------+ + + + [...]
[~2019-09-09 13:42] MED LIST changes: +ONGLYZA5 MG PO; -ROBAXIN-750750 MG; +ROBAXIN-750750 MG PO
--- OUTSIDE RECORDS SUMMARY | 2019-09-09 13:44 | XMS ---
PreManage Notification: DAVID CAMARA Security Speech Language Pathology Assistant Events 1 event(s) in the past 18 months Most recent security events: Elopement at [facility] 01/21/2019 21:27 - Other Details: PATIENT LWBS. HOLLIS BORRERO. CRITERIA MET - Group Notification CARE PROVIDERS MIGUEL DOE Internal Medicine: Gastroenterology Current PHONE: [phone] MIGUEL DOE Primary Care Current PHONE: Unknown Alec has no Care Guidelines for this patient. E.D. VISIT COUNT (12 MO.) [address] [place] [address] TOTAL 2 NOTE: Visits indicate total known visits. ED/UCC VISIT TRACKING (12 MO.) 09/09/2019 13:42 [facility] TYPE: Emergency COMPLAINT: - ABD PAIN 01/21/2019 21:27 [facility] TYPE: Emergency COMPLAINT: - DIABETES PROBLEM DIAGNOSES: - terminal press operator (current) use of aspirin - Allergy status to sulfonamides status - penitentiary (current) use of insulin - Pain in unspecified knee - Unspecified asthma, uncomplicated - Pure hypercholesterolemia, unspecified - Proc/trtmt not crd out d/t pt lv bef seen by [facility] prov - Other skilled nursing (current) drug therapy - 1 Type 2 diabetes mellitus without complications - Unspecified abdominal pain - Proc/trtmt not crd out d/t pt lv bef seen by [facility] - Allergy status to other antibiotic agents status - Gastro-esophageal reflux disease without esophagitis - Allergy status to oth drug/meds/biol subst status - Essential (primary) hypertension INPATIENT VISIT TRACKING (12 MO.) No inpatient visits to display in this time frame [email or web address]
--- NOTE | 2019-09-09 18:42 | NUR ---
PT ARRIVED FROM ED. VSS. PT ON ROOM AIR, LUNG SOUNDS CLEAR, DENIES SOB. PT WITH ABD PAIN IMPROVED SINCE ARRIVAL TO ED, RATING PAIN 2/10, BOWEL TONES ACTIVE. PT WITH MILD NAUSEA, WITHOUT EMESIS, DR. BRAVO NOTIFIED, ORDER FOR ZOFRAN PLACED. CMS INTACT, WITHOUT EDEMA. IV TO RIGHT HAND DC, PAINFUL TO FLUSH. D5 1/2 NS +20K INFUSING AT 125 ML/HR, FLAGYL INFUSING AND LEVAQUIN TO FOLLOW. STOOL AND URINE SAMPLE NEED TO BE COLLECTED, DISCUSSED WITH PT. PT DENIES OTHER NEEDS AT THIS TIME.
--- NOTE | 2019-09-09 19:00 | NUR ---
BEDSIDE REPORT RECEIVED FROM LAWRENCE THORNTON. pt RESTING IN BED, EYES CLOSED, BREATHING UNLABORED. IVF INFUSING WNL. CALL LIGHT NEXT TO pt.
--- NOTE | 2019-09-09 19:20 | NUR ---
BEDSIDE REPORT RECEIVED FROM LAWRENCE ANDERSON. pt WITH 1200 ML EMESIS AT THIS TIME. GOWN CHANGED, WASH RAG PROVIDED. IVF INFUSING WNL ORDERED. CALL LIGHT IN REACH. NO REQUESTS AT THIS TIME.
--- NOTE | 2019-09-09 20:19 | NUR ---
ROUNDED CHARGE. PATIENT IS RESTING IN BED WATCHING TV. PATIENT DENIES ANY COMMENTS, QUESTIONS OR CONCERNS. NO NEEDS NOTED. CALL LIGHT IN REACH.
--- NOTE | 2019-09-09 21:23 | NUR ---
CALL LIGHT ANSWERED. STOOL AND URINE SAMPLE SENT TO LAB. BLOODY STOOL NOTED, NOTIFIED VERBALLY. PRN PAIN MEDICATION ADMINSITERED FOR pt REPORTED 5/10 PAIN IN LOWER ABDOMEN. pt CRYING, SITTING UP IN BED. ASSESSMENT COMPLETE. pt C/O SOME NAUSEA, STATES "IT WILL GO AWAY". EMESIS BAG IN REACH. CALL LIGHT IN REACH. NO REQUESTS AT THIS TIME.
--- NOTE | 2019-09-09 21:40 | NUR ---
pt MOANING, NAUSEOUS. MD PHONED. NEW ORDERS REPEATED BACK AND EMAR UPDATED. PRN NAUSEA MEDICATION ADMINISTERED. WARM BLANKET PROVIDED. CALL LIGHT IN REACH.
--- NOTE | 2019-09-09 22:21 | NUR ---
PATIENT IS SITTING IN BED ROCKING AND MOANING. PATIENT COMPLAINS OF 9/10 LOWER ABD PAIN. PAITENT GIVEN PRN PAIN MEDICATION PER ORDER. PATIENT OFFERED WARM PACK PATIENT DENIES THE NEED AT THIS TIME. NO FURTHER NEEDS NOTED. CALL LIGHT IN REACH.
--- NOTE | 2019-09-09 22:40 | NUR ---
IV PUMP ALARMING, DISTAL OCCLUSION. pt SITTING UP AT SIDE OF BED. C/O "FEELING LIKE SHIT". SBA TO RESTROOM. VERBALIZES UNDERSTANDING TO USE CALL LIGHT WHEN FINISHED. IVF INFUSING WNL ORDERED.
--- NOTE | 2019-09-09 23:11 | NUR ---
CALL LIGHT ANSWERED. pt SBA BACK TO BED. PRN NAUSEA MEDICATION ADMINISTERED, 900 MLS EMESIS. BEDDING CHANGED. CALL LIGHT IN REACH.
--- NOTE | 2019-09-09 23:57 | NUR ---
CALL LIGHT ANSWERED. 200 ML GREEN EMESIS. PRN NAUSEA AND PAIN MEDICATION ADMINISTERED. pt RATES PAIN 6/10 IN LOWER ABD. WARM BLANKET PROVIDED. CALL LIGHT IN REACH.
--- NOTE | 2019-09-10 01:04 | NUR ---
CHECKED ON pt. RESTING IN BED WITH EYES CLOSED. RR 20.
--- NOTE | 2019-09-10 01:50 | NUR ---
CHECKED ON pt. RESTING IN BED WITH EYES CLOSED. RR 18. IVF INFUSING WNL ORDERED.
--- NOTE | 2019-09-10 02:33 | NUR ---
pt DROWSY. RATES PAIN 3-4/10 IN LOWER ABDOMEN "MUCH BETTER". DENIES NAUSEA. CRACKERS AND DIET SPRITE PROVIDED REQUESTED. VSS. IV ANTIBIOTIC INFUSING WNL ORDERED. ASSESSMENT COMPLETE. CALL LIGHT IN REACH. DENIES TOILETING NEEDS.
--- NOTE | 2019-09-10 03:10 | NUR ---
IV PUMP ALARMING, DISTAL OCCLUSION. IVF INFUSING WNL. pt DENIES ANY NEEDS AT THIS TIME. CALL LIGHT IN REACH.
--- NOTE | 2019-09-10 04:23 | NUR ---
CALL LIGHT ANSWERED, pt C/O INCREASING PAIN IN ABDOMEN, 01/07. PRN PAIN MEDICATION ADMINISTERED. DENIES NAUSEA. IVF INFUSING WNL. CALL LIGHT IN REACH.
--- NOTE | 2019-09-10 04:56 | NUR ---
EMESIS THIS SHIFT. IVF INFUSING WNL THROUGHOUT SHIFT. PRN PAIN AND NAUSEA MEDICATIONS ADMINISTERED. SBA TO RESTROOM FOR VOIDS. BLOODY STOOL NOTED. STOOL AND URINE SAMPLES SENT TO LAB. CONTACT PRECAUTIONS.
--- NOTE | 2019-09-10 05:33 | NUR ---
IV PUMP ALARMING, DISTAL OCCLUSION. IVF INFUSING WNL. NO REQUESTS AT THIS TIME.
--- NOTE | 2019-09-10 06:40 | NUR ---
VSS. pt C/O NAUSEA. PRN MEDICATION ADMINSITERED. PRN PAIN MEDICATION FOR 5-6/10 PAIN IN LOWER ABDOMEN, STATES, "IT REALLY HURTS". WATER PROVIDED. NO EMESIS AT THIS TIME. CALL LIGHT AND PERSONAL SUPPLIES IN REACH. NEW BAG IVF INFUSING WNL.
--- NOTE | 2019-09-10 07:15 | NUR ---
REPORT RECEIVED FROM LAWRENCE SAMAYOA. PT SITTING UP IN BED. PT CONTINUES TO BE NAUSEATED. 300ML OF EMESIS NOTED. PHENEGRAN GIVEN. PT DENIES ADDITIONAL REQUESTS OR COMPLAINTS AT THIS TIME. CALL LIGHT WITHIN REACH.
--- NOTE | 2019-09-10 07:36 | NUR ---
MORNING ASSESSMENT AND MEDICATIONS DUE. PT REPORTS FEELING "BETTER." AFTER THE PHENEGRAN. PT CONTINUES TO GROWN WITH BREATHING AND REMAINS IN UPRIGHT POSITION. MINIMAL BOWEL TONES HEARD. ABDOMEN TENDER. PT REPORTS 4/10 PAIN STATING "ITS LIKE AN ACHE." PT DENIES NEED FOR PAIN MEDICATION AT THIS THIS TIME. PTS FAMILY CALLS. PT USES MINIMAL WORDS WHEN TALKING WITH FAMILY. MEDICATIONS GIVEN. NEW GOWN AND BLANKETS PROVIDED. PT RESTING WITH EYES CLOSED, RESPIRATIONS EVEN AND UNLABORED. CALL LIGHT WITHIN REACH.
--- NOTE | 2019-09-10 08:10 | NUR ---
MDTUnable to document in interventions. Pt discussed in MDT. with Dr, PT, OT, ST, Infection control, Pharm, dietary, pastorial care.
[2019-09-10] MEDS ORDERED: DICYCLOMINE HCL10 MG PO (08:22)
--- NOTE | 2019-09-10 10:03 | NUR ---
MEDICATION DUE. THIS RN TO ROOM TO CHECK ON PT. PT SITTING UP IN BED. NO FURTHER EMESIS EPISODES SINCE SHIFT CHANGE. PT SATES SHE THINKS NAUSEA IS "A LITTLE BETTER." PT REPORTS CRAMPING PAIN AT 4/10 IN ABDOMEN. SEE MAR FOR MEDICATION GIVEN. ABX STARTED. ICE CHIPS PROVIDED PER PT REQUEST. NO ADDITIONAL REQUESTS OR COMPLAINTS AT THIS TIME. CALL LIGHT WITHIN REACH.
--- NOTE | 2019-09-10 10:54 | NUR ---
THIS RN TO ROOM TO CHECK ON PT. PT REPORTS 4/10 PAIN THAT IS "HOLDING STEADY." PT DENIES NEED FOR ADDITIONAL PAIN MEDICAITON AT THIS TIME. PT REPORTS NAUSEA HAS IMPROVED BUT SHE CONTINUES TO BE RELUCATNAT TO DRINK WATER OR EAT. NO ADDITIONAL REQUESTS AT THIS TIME. CALL LIGHT WITHIN REACH.
[2019-09-10] MEDS ORDERED: ALBUTEROL2.5 MG/3 M INH (10:58)
[2019-09-10] MEDS ORDERED: GLUCOSE4 GM PO (11:08)
[2019-09-10] MEDS ORDERED: CLOBETASOL PROP15 G1 TOP (11:35)
[2019-09-10] MEDS ORDERED: PROTONIX40 MG PO (11:36)
[2019-09-10] MEDS ORDERED: MIRALAX119 GM PO (11:38)
--- NOTE | 2019-09-10 11:38 | NUR ---
MED REC COMPLETE
--- NOTE | 2019-09-10 11:59 | NUR ---
NOON ASSESSMENT. PT RESTING IN BED VISITING WITH PHARMACIST REGARDING MEDICATIONS. ASSESSMENT DONE. PT EXPRESSES FRUSTRATION WITH AC LOCATION OF PIV AND PUMP ALARMING, NEW IV ATTEMPTED, UNSUCESSFUL. PT AGREES TO CONTINUE USING AC PIV. PT REPORTS MILD NAUSEA AND STATES SHE WOULD LIKE MORE PHENEGRAN "SO IT DOESN'T COME BACK." PT REPORTS 4/10 ABDOMINAL PAIN, SEE MAR FOR MEDIATION GIVEN. PT ABLE TO TOLERATE A FEW BITES OF JELLOW. BLOOD SURGAR READS 109 FROM ARM DIVICE. NO ADDITIONAL REQUESTS OR COMPLAINTS AT THIS TIME. CALL LIGHT WITHIN REACH.
--- NOTE | 2019-09-10 12:49 | NUR ---
THIS RN TO ROOM TO CHECK ON PT. PT RESTING IN BED. PT DENIES NAUSEA AND REPORTS 4/10 PAIN THAT IS "JUST FINE." PT DENIES NEED FOR ADDITIONAL PAIN MEDICATION AT THIS TIME. NO ADDITIONAL REQUESTS OR COMPLAINTS AT THIS TIME. CALL LIGHT WITHIN REACH.
--- NOTE | 2019-09-10 13:21 | NUR ---
PT SITTING IN CHAIR IN BLANKET, LILI DILLARD CHANGING LINENS. PT PLEASANT, SPOKE VERY SOFTLY. REQUESTED FR WILSON TO VISIT SATURDAY-WILL PASS THIS INFO ON TO HIM. GAVE BLESSING, WILL FOLLOW NEEDED
--- NOTE | 2019-09-10 13:42 | NUR ---
THIS RN TO ROOM TO CHECK ON PT. LEMON ANGELICA TEA ORDERED PER PT REQUEST. PT REPORTS MILD NAUSEA. SEE MAR FOR MEDICATION GIVEN. PT REMAINS UP TO CHAIR. PT REPORTS PAIN IS "BETTER." PT DENIES NEED FOR PAIN MEDICAITON AT THIS TIME. NO ADDITIONAL REQUESTS OR COMPLAINTS AT THIS TIME. CALL LIGHT WITHIN REACH.
--- NOTE | 2019-09-10 14:57 | NUR ---
PT VOMITING. CALLED FOR ADDITIONAL MEDICAITON ORDERS. ORDERS TO GIVE AN ADDITIONAL DOSE OF 4MG IV ZOFRAN. GIVEN ORDERED.
--- NOTE | 2019-09-10 15:17 | NUR ---
In to speak with pt. She is sipping water. C/O not feeling well for several days. Lives at home with spouse and daughters. Daughter is a chef de froid. Pt denies financial issues, can get commodities if needed from . Plans on discharging to home when colities improves.
--- NOTE | 2019-09-10 15:57 | NUR ---
AFTERNOON ASSESSMENT DUE. PT CONTINUES TO EXPERIENCE NAUSEA. PHENEGRAN GIVEN. PT REPORTS CRAMPING PAIN. ASSESSMENT DONE. BOWEL TONES HEARD IN UPPER QUADRANTS. ABDOMEN TENDER IN PLACES BUT SOFT TO PLAPITATION. SEE MAR FOR MEDICATION GIVEN. LUNG SOUNDS CLEAR. PT POINTS OUT INJURY TO RIGHT POINTER FINGER. PT STATES SHE "POKED" HER FINGER "IN " WITH A NEEDLE AND IT IS STILL HEALING. FINGERNAL LOOSE, SKING SLOUGHING OFF. BANDAID PROVIDED PER PT REQUEST. PT DENIES ADDITIONAL REQUESTS OR COMPLAINTS. MOUTH WASH PROVIDED. PT BRUSHES TEETH. CALL LIGHT WITHIN REACH.
--- NOTE | 2019-09-10 18:31 | NUR ---
FLUID BOLUS COMPLETE. ABX STARTED. PT RESTING IN BED WITH EYES CLOSED. RESPIRATIONS EVEN AND UNLABORED. BED RAILS UP. CALL LIGHT WITHIN REACH.
--- NOTE | 2019-09-10 18:37 | NUR ---
PT HERE FOR COLITIS. IV ABX GIVEN. FLUID BOLUS GIVEN FOR INCREASING CREATINE. MULTIPLE EPISODES OF EMESIS THIS SHIFT. PRN NAUSEA MEDICAITONS GIVEN FREQUENTLY. PT UP TO CHAIR X1, SBA. BLOOD SURGAR CHECKS THROUGH PTS IMPLANTED DEVICE IN LEFT ARM. PT USES CALL LIGHT APPROPRIATLY.
--- NOTE | 2019-09-10 19:10 | NUR ---
PT VISITING WITH FAMILY IN ROOM. SHIFT REPORT RECIEVED FROM LALO BRAVO. NO NAUSEA OR PAIN AT THIS TIME. NO NEEDS, CALL LIGHT IN REACH.
--- NOTE | 2019-09-10 19:51 | NUR ---
PT UP TO BR, FWW, SBA. BACK TO BED. NO OTHER NEEDS. CALL LIGHT IN REACH.
--- NOTE | 2019-09-10 20:55 | NUR ---
SCHEDULED MEDS PROVIDED. PRN PAIN MEDS PROVIDED FOR 3/10 ABD PAIN. ABD FIRM AND TENDER. NO OTHER NEEDS AT THIS TIME. CALL LIGHT IN REACH.
--- NOTE | 2019-09-10 21:30 | NUR ---
ASSESSMENT COMPLETED. ABD FIRM AND TENDER. PT DENIES NUASEA AND STATES PAIN IS "BETTER". NO OTHER NEEDS. CALL LIGHT IN REACH.
--- NOTE | 2019-09-10 22:10 | NUR ---
MD REQUESTED TO BE CALLED WITH [facility]O UPDATE AFTER BOLUS. MD CALLED. VERBAL ORDER TO CONTINUE LR 150ML/HR ORDERED. ORDER REPEATED BACK.
--- NOTE | 2019-09-10 22:21 | NUR ---
PT RESTING IN BED, EYES CLOSED., RR 14, EVEN, UNLABORED. CALL LIGHT IN REACH.
--- NOTE | 2019-09-11 01:00 | NUR ---
PT RESTING IN BED, EYES CLOSED. RR 16, EVEN, UNLABORED. CALL LIGHT IN REACH.
--- NOTE | 2019-09-11 03:05 | NUR ---
PT RESTING IN BED, EYES CLOSED. RR 18, EVEN, UNLABORED. CALL LIGHT IN REACH.
--- NOTE | 2019-09-11 05:00 | NUR ---
PT HAS SLEPT MOST THE SHIFT. PAIN AND NAUSEA MANAGED WELL WITH PRN MEDS. PT TOLERATED IV FLUID AND MEDS WELL. IV CDI, WNL. ABD TENDER WITHOUT DISTENTION.
--- NOTE | 2019-09-11 05:32 | NUR ---
PT UP TO BR, AMBULATING WELL. NO OTHER NEEDS, CALL LIGHT IN REACH.
--- NOTE | 2019-09-11 06:02 | NUR ---
VS AND I&OS WERE COMPLETE.
--- NOTE | 2019-09-11 06:33 | NUR ---
PT STATES HER LEFT HAND IS SWOLLEN. IV IS WNL, FLUSHED WELL. GENERALIZED EDEMA TO LEFT HAND. PT DENIES PAIN IN HAND. ICE PACK PROVIDED. NO OTHER NEEDS AT THIS TIME.
--- NOTE | 2019-09-11 07:33 | NUR ---
REPORT RECEIVED FROM SENIOR PRODUCTION SUPERVISOR RN. PT IN ROOM AEAKE. DENIES PAIN RIGHT NOW. NO NAUSEA. LR AT 150. CALL LIGHT IN REACH. TEA PROVIDED.
--- NOTE | 2019-09-11 10:00 | NUR ---
ASSESSMENT COMPLETED. BOWEL TONES ACTIVE. NO BM THIS SHIFT. PT DENIES NAUSEA. REPORTS SOME ABDOMINAL CRAMPING. PRN MEDICAITONS ADMILSTERED. DRANK ABOUT 50% OF LIQUID BREAKFAST TRAY.
--- NOTE | 2019-09-11 12:17 | NUR ---
PT SITTING ON SIDE OF BED WITH BLANKED WRAPPED AROUND TORSO. PT HAD VISITOR THAT WAS LEAVING TO GO TO WORK. PT SLEPT SOME, AND BASICALLY CLEAR LIQUID DIET. PT WOULD LIKE LAWRENCE SCHMIDT ORDERED FROM DIETARY-PT SEEMED PLEASED. PT WOULD LIKE FR WILSON TO VISIT-INFORMED HIM. GAVE BLESSING, WILL CONTINUE TO FOLLOW NEEDED
--- NOTE | 2019-09-11 13:00 | NUR ---
In and spoke with Inocencia. She states she is feeling better today. Cramps cont., but denies vomiting. She states she doesn't understand how she has colitis as her colonoscopy was clear. She does state she has had bouts of these symptoms over the last few years, as well as c diff, sepsis, and ecoli. She denies knowledge of colitis. Virginia Domingo Rn notified and will provide education.
--- NOTE | 2019-09-11 13:30 | NUR ---
DR ROBBINS IN TO ROUND ON PT. NEW ORDERRECEIVED. DIET ADVACNED. FULL LIQ LUNCH TRAY ORDERED. PT UP IN CHIAR. DENEIS NAUSEA OR PAIN. CALL LIGHT IN REACH
--- NOTE | 2019-09-11 14:07 | NUR ---
PT UP IN CHAIR EATING FUILL LIQ LUNCH. MEDICATIOSN GIVEN. CALL LIGHT IN REACH. DENEIS NEEDS.
--- NOTE | 2019-09-11 15:56 | NUR ---
VISITED WITH PT AFTER PT STATING TO DC WEATHERIZATION TECHNICIAN THAT SHE DIDN'T UNDERSTAND WHAT COLITIS IS AND WHY SHE HAS IT. INTRODUCED MYSELF AND ASKED IF THIS WAS A GOOD TIME TO VISIT WITH HER. SHE WAS OK WITH THIS AND THANKED ME FOR COMEING IN TO VISIT WITH HER. SHE AND I WENT OVER THE INFORMATION IN HER PT INFORM PACKET GIVEN TO HER. WENT OVER THE HANDOUT FOR COLITIS IN DETAIL, ALSO TALKED ABOUT DIETARY NEEDS (CALLED DEION HOUSE VISITOR ASKED HER TO COME SEE PT, SHE SAID SHE WOULD COME UP TODAY). PT STATED UNDERSTANDING OF THE INFORMATION SHARED WITH HER, VERBALIZED SIGNS AND SX BACK, WE TALKED ABOUT HER HISTORY OF GI PROBLEMS SHE STATED SHE HAD ECOLI IN 2009 AND CDIFF IN EITHER 2013 OR 2015. SHE STATES SHE NORMALLY EATS CHICKEN, NO BEEF THAT IS WHAT SHE BELIEVES HER ECOLI CAME FROM. SHE EATS LIMITED VEGETABLES, DRINKING WATER OR GATORADE ZERO. TALKED ABOUT WHEN SHE FEELS IS APPROPRIATE TO COME IN TO THE HOSPITAL AFTER HER SX STARTED, PT STATES SHE TRIED TO GO TO THE DR FIRST BUT THEY TOLD HER TO COME TO THE ER. STATES SHE HAD TO COME TO HOSPITAL VIA AMBULANCE SHE HAD NO OTHER WAY TO COME IN. PT STATES UNDERSTANDING OF HER MEDS AND THAT SHE EVEN REMEBERED TO TAKE THEM WITH HER TO THE HOSPITAL. DENIED FURTHER QUESTIONS, STATED SHE IS FEELING MUCH BETTER AND HER PAIN LEVEL IS 0 AT THIS TIME"JUST SOME DISCOMFORT" STATES SHE IS FEELING REALLY TIRED NOW. THANKED ME FOR STOPPING AND TALKING WITH HER.
--- NOTE | 2019-09-11 16:47 | NUR ---
PATIENT HAS COLITIS AND HISTORY OF DIABETES. SHE HAD C-DIFF IN THE PAST AND SAYS THE COLITIS IS A LOT LIKE C-DIFF. SHE LIVES WITH HER DAUGHTER WHO HELPS COOK LOWER CARB MEALS. PATIENT WEARS A SENSOR FOR CHECKING BLOOD SUGARS. SHE SAID HER A1C WENT FROM 13 TO 6 IN 1 YEAR. SHE DOESN'T SEE A DIETITIAN. SHE CANNOT TOLERATE GLUTEN OR DAIRY AT ALL. SHE CAN TOLERATE SOY MILK BUT PREFERS RICE MILK. DOESN'T CARE FOR ALMOND MILK. DOESN'T EAT BEEF BECAUSE SHE GOT E.COLI FROM IT IN THE PAST. SHE CAN EAT FISH, CHICKEN, EGGS, TUNA. RIGHT NOW SHE IS ON A FULL LIQ DIET. I EXPLAINED THAT WHEN HER DIET GETS ADVANCED, SHE NEEDS TO EAT EASY TO DIGEST FOODS THAT ARE NOT HIGH IN FIBER FOR AWHILE. SHE HAS AN IDEA OF VEGGIES AND FRUIT SHE CAN AND CAN'T TOLERATE. MY MAIN POINTS OF EDUCATION WITH HER ARE TO EAT 4 TO 6 TIMES A DAY AND INCLUDE PROTEIN WITH MEALS AND SNACKS. ALSO, EDUCATED ON FOODS THAT CAN TRIGGER A FLARE, LIST PROVIDED. WITH HER DAUGHTER'S HELP, SHE SHOULD DO FINE, THOUGH SHE MAY GO HOME ON A LOW-FIBER DIET. PATIENT IS PRETTY AGAINST ANY FOODS/DRINK THAT ARE SIMILAR TO DAIRY BECAUSE OF BAD EXPERIENCES BEING LACTOSE-INTOLERANT FOR MANY YEARS. WILL CONTINUE TO MONITOR WHILE HERE. ADDED MY NAME AND OFFICE # ON HER HANDOUT AND ENCOURAGED HER TO CALL IF SHE HAS QUESTIONS IN THE FUTURE.
--- NOTE | 2019-09-11 18:50 | NUR ---
PT WITH INCREASED SWELLING AT IV SITE AND PAIN./ DR ROBBINS NOTIFIED. OKAY TO LEAVE IV OUT. IV DC'D. CATH INTACT. PT TOLERATED WELL. HEAT PACK PROVIDED FOR SWELLING.
--- NOTE | 2019-09-11 19:20 | NUR ---
RECEIVED REPORT FROM LAWRENCE RENE. pt SITTING IN BED SURROUNDED BY FAMILY. WHITEBOARD UPDATED. LAST BM VISUALLIZED. OUTPUT RECORDED. NO REQUESTS AT THIS TIME. CALL LIGHT WITHIN REACH.
--- NOTE | 2019-09-11 20:30 | NUR ---
ADMINISTERED BENTYL PER PATIENT REQUEST AND ADVISED HER THAT HER PRIMARY RN WILL BE IN LATER WITH THE REMAINDER OF HER NIGHT MEDS. PROVIDED FRESH WATER AND WARM BLANKETS. ALSO GAVE PT A WARM PACK TO PLACE ON HER ARM AT IV INFILTRATION SITE. PT STATES SHE IS STARTING TO FEEL BETTER THAN SHE HAS BEEN FEELING. SHE DENIES FURTHER NEEDS. CALL LIGHT IS CLOSE.
--- NOTE | 2019-09-11 21:45 | NUR ---
pt SITTING IN BED. ASSESSMENT DONE. DID MANUAL BLOOD PRESSURE pt HAD DIFFICULTY TOLERATING AUTOMATED. MEDICATIONS GIVEN (SEE MAR). pt ABLE TO TEACH BACK ON MEDICATIONS. pt AMBULATED IN HALLWAY WITH CASHIER CLERK. ROOM TIDIED. CALL LIGHT WITHIN REACH.
--- NOTE | 2019-09-12 00:07 | NUR ---
CALL LIGHT ON. pt VOMITING, VERY LITTLE EMESIS. PRN EMA CUETO ORDERED pt DOES NOT HAVE AN IV AT THIS TIME. GIVEN (SEE MAR). PROVIDED WARM BLANKET. CALL LIGHT WITHIN REACH.
--- NOTE | 2019-09-12 01:22 | NUR ---
pt EXPERIENCING DRY HEAVES, NO EMESIS. pt REPORTED AMBULATING TO TOILET CAUSED THE EVENT. NO REQUESTS AT THIS TIME. CALL LIGHT WITHIN REACH.
--- NOTE | 2019-09-12 02:33 | NUR ---
CALL LIGHT ON. pt SITTING IN BED MOANING. PRN MEDICATION GIVEN (SEE MAR). WARM BLANKET AND ICE CHIPS PROVIDED. ASSESSMENT DONE. WITHIN TEN MINUTES pt WAS SPEAKING IN NORMAL TONES AND NOT MOANING. pt REPORTED FEELING "BETTER". CALL LIGHT WITHIN REACH.
--- NOTE | 2019-09-12 02:55 | NUR ---
pt DRY HEAVING AGAIN. pt OKAY TO HAVE NEW IV PLACED.
--- NOTE | 2019-09-12 03:30 | NUR ---
IV PLACED BY LAWRENCE BORDEN. IV PRN NAUSEA MED GIVEN (SEE MAR). pt RESTING IN BED. NO REQUESTS AT THIS TIME. CALL LIGHT WITHIN REACH.
--- NOTE | 2019-09-12 06:39 | NUR ---
VITALS AND I&OS DONE AND CHARTED. GARBAGES EMPTIED. BEDSIDE TABLE AND CALL LIGHT IN REACH. PT NEEDS NOTHING MORE AT THIS TIME.
--- NOTE | 2019-09-12 06:39 | NUR ---
pt HAD MULTIPLE EPISODES OF DRY HEAVES, VERY LITTLE EMESIS NOTED. NEW IV PLACED. IV NAUSEA MEDS GIVEN X1. SLEPT AFTER IV MEDICATION FOR A FEW HOURS. DENIED PAIN BUT REPORTED DISCOMFORT IN ABD. TOLERATING ICE CHIPS. AMBULATED IN AYALA X1, SBA FWW. USES CALL LIGHT APPROPRIATELY.
--- NOTE | 2019-09-12 07:23 | NUR ---
PT RESTING SOUNDLY REPORT RECEIVED
--- NOTE | 2019-09-12 10:11 | NUR ---
PT UP INDEPENDANTLY IN ROOM RETURNS TO BED DOZING AT EACH CHECK THIS SHIFT SNORING SOFTLY. AWAKENS FOR BREAKFAST EATS 100% DENIES NAUSEA, REPORTS SHE FEELS "SO MUCH BETTER" PT DENIES NEEDS OF
[2019-09-12] MEDS ORDERED: CIPROFLOXACIN500 MG PO (10:13)
[2019-09-12] MEDS ORDERED: METRONIDAZOLE500 MG PO (10:14)
[2019-09-12] MEDS ORDERED: ONDANSETRON ODT4 MG SL (10:16)
[2019-09-12] MEDS ORDERED: PROBIOTIC ACID1 EAC3 PO (10:17)
== END 2019-09-12 11:40 | disposition home or self-care (01) | DRG 373 ==
LOC: ED 13:42 → MS 13:43
PROVIDERS: ADMIT Internal Medicine
DX: A04.4 Other intestinal Escherichia coli infections (principal); A09 Infectious gastroenteritis and colitis, unspecified; K58.2 Mixed irritable bowel syndrome; E11.9 Type 2 diabetes mellitus without complications; I10 Essential (primary) hypertension; E78.5 Hyperlipidemia, unspecified; K21.9 Gastro-esophageal reflux disease without esophagitis; J45.909 Unspecified asthma, uncomplicated; Z79.82 Long term (current) use of aspirin; Z79.4 Long term (current) use of insulin; Z79.899 Other long term (current) drug therapy; Z88.1 Allergy status to other antibiotic agents; Z88.2 Allergy status to sulfonamides; Z88.8 Allergy status to other drugs, medicaments and biological substances
CPT/HCPCS: 36415; 74177; 80048; 80053; 81001; 83605; 83690; 83735; 84703; 85025; 85651; 87045; 87046; 87493; 96361; 96365; 96366; 96367; 96375; 96376; 99285-25; C9113; G0378; J0780; J1170; J1815; J1956; J2405; J2550; J3480; J7030; J7121; Q9967